=== PATIENT | male | born 1955 | race Two or more races ===

== ENCOUNTER 2017-06-25 20:18 | Inpatient (IN) | payer MEDICARE, OTHER ==
[2017-06-25] MEDS: HumaLOG INSULIN (NovoLOG) PER UNIT SC (21:00)
[2017-06-25] MEDS: IPRATROPIUM 0.5MG/ALBUTEROL 2.5MG INH SOL UD 3ML (DUONEB)(J7620) NEB (21:28)
[2017-06-25 22:35] LABS: BASO % 0.6 % (0.0-1.0); EOS % 0.6 % (0.0-3.0); HEMATOCRIT 38.7 % (42.0-52.0); HEMOGLOBIN 12.5 g/dl (14.0-18.0); IMMATURE GRANULOCYTE % 0.6 % (0-3.0); LYMPH # 0.7 10^3/uL (1.5-4.5); LYMPH % 14.6 % (24.0-44.0); MEAN CORPUSCULAR HGB CONC 32.3 g/dl (32.0-36.5); MONO # 0.6 10^3/uL (0.0-0.8); NEUTROPHILS # 3.4 10^3/uL (1.8-7.7); NEUTROPHILS % 71.6 % (36.0-66.0); PLATELET COUNT, AUTOMATED 195 10^3/uL (150-450); RED BLOOD COUNT 4.16 10^6/uL (4.30-6.10); RED CELL DISTRIBUTION WIDTH 15.9 % (11.5-14.5); WHITE BLOOD COUNT 4.7 10^3/uL (4.0-10.0)
[2017-06-25 22:50] LABS: ALBUMIN 3.4 GM/DL (3.2-5.2); ALBUMIN/GLOBULIN RATIO 0.92 (1.00-1.93); ALT/SGPT 52 U/L (12-78); ANION GAP 9 MEQ/L (8-16); AST/SGOT 119 U/L (7-37); BILIRUBIN,TOTAL 0.2 MG/DL (0.2-1.0); BLOOD UREA NITROGEN 41 MG/DL (7-18); CALCIUM LEVEL 8.4 MG/DL (8.8-10.2); CARBON DIOXIDE LEVEL 26 MEQ/L (21-32); CHLORIDE LEVEL 106 MEQ/L (98-107); CREATININE FOR GFR 1.56 MG/DL (0.70-1.30); GLOMERULAR FILTRATION RATE 48.6 (>49); GLUCOSE, FASTING 180 MG/DL (70-100); MAGNESIUM LEVEL 2.2 MG/DL (1.8-2.4); PHOSPHORUS LEVEL 2.3 MG/DL (2.5-4.9); POTASSIUM SERUM 4.1 MEQ/L (3.5-5.1); SODIUM LEVEL 141 MEQ/L (136-145); TOTAL PROTEIN 7.1 GM/DL (6.4-8.2); TROPONIN I 0.04 NG/ML (< 0.10)
[2017-06-25 22:55] LABS: ALKALINE PHOSPHATASE 69 U/L (45-117); CK-MB VALUE MASS 6.8 NG/ML (0.0-3.6); INFLUENZA A AMPLIFICATION POSITIVE (NEGATIVE); INFLUENZA B AMPLIFICATION NEGATIVE (NEGATIVE)
[2017-06-25 22:56] LABS: NT-PRO BNP 408 PG/ML (<125)
[2017-06-25 23:01] LABS: BILIRUBIN,DIRECT < 0.1 MG/DL (0.0-0.2); CPK CREATINE PHOSPHOKINASE 5625 U/L (39-308); FREE T4 0.82 NG/DL (0.76-1.46); MB/CK RELATIVE INDEX 0.12 (< OR =4)
[2017-06-25] MEDS: NS 1,000 ML IV ×2 (23:13→23:37)
[2017-06-25] MEDS ORDERED: ACETAMINOPHEN TAB 650MG DOSE (2X325MG) PO (23:45)
[2017-06-26] MEDS ORDERED: GLUCAGON FOR INJ 1 MG VIAL (J1610) SC
[2017-06-26] MEDS ORDERED: DEXTROSE 50% 50 ML SYRINGE IV
[2017-06-26] MEDS ORDERED: GLUCOSE 4 GM CHEW TABLET PO
[2017-06-26 01:57] LABS: BEDSIDE GLUCOSE 83 MG/DL (80-115)
[2017-06-26 05:57] LABS: ANION GAP 7 MEQ/L (8-16); BLOOD UREA NITROGEN 35 MG/DL (7-18); CALCIUM LEVEL 8.7 MG/DL (8.8-10.2); CARBON DIOXIDE LEVEL 28 MEQ/L (21-32); CHLORIDE LEVEL 109 MEQ/L (98-107); CPK CREATINE PHOSPHOKINASE 5079 U/L (39-308); CREATININE FOR GFR 1.25 MG/DL (0.70-1.30); GLOMERULAR FILTRATION RATE > 60.0 (>49); GLUCOSE, FASTING 112 MG/DL (70-100); POTASSIUM SERUM 3.8 MEQ/L (3.5-5.1); SODIUM LEVEL 144 MEQ/L (136-145)
[2017-06-26] MEDS ORDERED: LOPERAMIDE 2 MG CAP PO (06:00)
[2017-06-26] MEDS: LEVOTHYROXINE 112MCG TABLET (0.112MG) PO (06:29)
[2017-06-26] MEDS: LEVEMIR (INSULIN DETEMIR) 1 UNITS/0.01ML SC ×2 (09:00→21:00)
[2017-06-26] MEDS: NS 1,000 ML IV (09:47)
[2017-06-26] MEDS: NORCO, ANEXSIA 5/325MG TABLET (HYDROcodone/ACETAMINOPHEN) PO ×2 (09:52→17:55)
[2017-06-26] MEDS: PREGABALIN 50 MG CAP (LYRICA) PO ×3 (10:05→21:33)
[2017-06-26] MEDS: HumaLOG INSULIN (NovoLOG) PER UNIT SC ×4 (10:11→21:00)
[2017-06-26] MEDS: PANTOPRAZOLE 40MG TAB (PROTONIX) PO (10:12)
[2017-06-26] MEDS: DULoxetine 30 MG CAP (CYMBALTA) PO (10:12)
[2017-06-26] MEDS: DOCUSATE SODIUM 100 MG CAP PO ×2 (10:12→21:33)
[2017-06-26] MEDS: VITAMIN D 1,000 INTERNATIONAL UNITS TABLET PO (10:12)
[2017-06-26] MEDS: OSELTAMIVIR PHOSPHATE 75 MG CAP (TAMIFLU) PO ×2 (10:12→21:33)
[2017-06-26] MEDS: MULTIVITAMINS/MINERALS THERAP 1 TAB PO (10:14)
[2017-06-26] MEDS: CLOPIDOGREL 75 MG TAB PO (10:14)
[2017-06-26] MEDS: METOPROLOL TART 50 MG TAB PO ×2 (10:14→21:34)
[2017-06-26] MEDS: CLOTRIMAZOLE 1% TOPICAL CREAM 30GM TOP ×2 (10:15→21:00)
[2017-06-26] MEDS: EUCERIN 120GM CREAM TOP (10:15)
[2017-06-26 12:06] LABS: BEDSIDE GLUCOSE 194 MG/DL (80-115)
[2017-06-26] MEDS: ZIPRASIDONE 20MG CAPSULE (GEODON) PO (12:29)
[2017-06-26 17:26] LABS: BEDSIDE GLUCOSE 110 MG/DL (80-115)
[2017-06-26 21:12] LABS: BEDSIDE GLUCOSE 226 MG/DL (80-115)
[2017-06-26] MEDS: LURASIDONE HCL 40 MG TAB (LATUDA) PO (21:33)
[2017-06-26] MEDS: TAMSULOSIN 0.4 MG CAP PO (21:33)
[2017-06-27] MEDS: LEVOTHYROXINE 112MCG TABLET (0.112MG) PO (05:47)
[2017-06-27 05:52] LABS: INR 1.96
[2017-06-27 07:04] LABS: HEMATOCRIT 36.1 % (42.0-52.0); HEMOGLOBIN 11.8 g/dl (14.0-18.0); MEAN CORPUSCULAR HEMOGLOBIN 29.9 pg (27.0-33.0); MEAN CORPUSCULAR HGB CONC 32.7 g/dl (32.0-36.5); MEAN CORPUSCULAR VOLUME 91.6 fl (80.0-96.0); PLATELET COUNT, AUTOMATED 186 10^3/uL (150-450); RED BLOOD COUNT 3.94 10^6/uL (4.30-6.10); RED CELL DISTRIBUTION WIDTH 16.1 % (11.5-14.5); WHITE BLOOD COUNT 4.6 10^3/uL (4.0-10.0)
[2017-06-27 07:12] LABS: ANION GAP 7 MEQ/L (8-16); BLOOD UREA NITROGEN 23 MG/DL (7-18); CALCIUM LEVEL 8.2 MG/DL (8.8-10.2); CARBON DIOXIDE LEVEL 26 MEQ/L (21-32); CHLORIDE LEVEL 111 MEQ/L (98-107); CREATININE FOR GFR 1.07 MG/DL (0.70-1.30); GLOMERULAR FILTRATION RATE > 60.0 (>49); GLUCOSE, FASTING 80 MG/DL (70-100); POTASSIUM SERUM 4.1 MEQ/L (3.5-5.1); SODIUM LEVEL 144 MEQ/L (136-145)
[2017-06-27] MEDS: HumaLOG INSULIN (NovoLOG) PER UNIT SC ×4 (07:30→21:00)
[2017-06-27] MEDS: VITAMIN D 1,000 INTERNATIONAL UNITS TABLET PO (07:59)
[2017-06-27] MEDS: DOCUSATE SODIUM 100 MG CAP PO ×2 (08:00→20:11)
[2017-06-27] MEDS: PREGABALIN 50 MG CAP (LYRICA) PO ×3 (08:00→20:11)
[2017-06-27] MEDS: DULoxetine 30 MG CAP (CYMBALTA) PO (08:00)
[2017-06-27] MEDS: PANTOPRAZOLE 40MG TAB (PROTONIX) PO (08:00)
[2017-06-27] MEDS: OSELTAMIVIR PHOSPHATE 75 MG CAP (TAMIFLU) PO ×2 (08:00→20:11)
[2017-06-27] MEDS: MULTIVITAMINS/MINERALS THERAP 1 TAB PO (08:00)
[2017-06-27] MEDS: CLOPIDOGREL 75 MG TAB PO (08:00)
[2017-06-27] MEDS: NORCO, ANEXSIA 5/325MG TABLET (HYDROcodone/ACETAMINOPHEN) PO ×2 (08:01→15:35)
[2017-06-27] MEDS: EUCERIN 120GM CREAM TOP (08:01)
[2017-06-27] MEDS: CLOTRIMAZOLE 1% TOPICAL CREAM 30GM TOP ×2 (08:01→20:12)
[2017-06-27] MEDS: METOPROLOL TART 50 MG TAB PO (08:03)
[2017-06-27] MEDS: LEVEMIR (INSULIN DETEMIR) 1 UNITS/0.01ML SC ×2 (08:04→21:00)
[2017-06-27 09:12] LABS: CK-MB VALUE MASS 3.3 NG/ML (0.0-3.6); CPK CREATINE PHOSPHOKINASE 3899 U/L (39-308); MB/CK RELATIVE INDEX 0.08 (< OR =4)
[2017-06-27 09:13] LABS: NT-PRO BNP 871 PG/ML (<125); TROPONIN I 0.03 NG/ML (< 0.10)
[2017-06-27] MEDS: FUROSEMIDE 100 MG/10 ML VIAL (J1940) IV (10:38)
[2017-06-27] MEDS: IPRATROPIUM 0.5MG/ALBUTEROL 2.5MG INH SOL UD 3ML (DUONEB)(J7620) NEB (11:19)
[2017-06-27 11:50] LABS: BEDSIDE GLUCOSE 145 MG/DL (80-115)
[2017-06-27] MEDS: ZIPRASIDONE 20MG CAPSULE (GEODON) PO (13:07)
[2017-06-27 14:51] LABS: TROPONIN I < 0.02 NG/ML (< 0.10)
[2017-06-27 15:02] LABS: CK-MB VALUE MASS 2.7 NG/ML (0.0-3.6); CPK CREATINE PHOSPHOKINASE 3281 U/L (39-308); MB/CK RELATIVE INDEX 0.08 (< OR =4)
[2017-06-27 16:48] LABS: BEDSIDE GLUCOSE 254 MG/DL (80-115)
[2017-06-27] MEDS: WARFARIN SOD 7.5 MG TAB PO (17:12)
[2017-06-27] MEDS: TAMSULOSIN 0.4 MG CAP PO (20:11)
[2017-06-27] MEDS: LURASIDONE HCL 40 MG TAB (LATUDA) PO (20:12)
[2017-06-27 20:54] LABS: BEDSIDE GLUCOSE 171 MG/DL (80-115)
[2017-06-27 21:02] LABS: BLOOD UREA NITROGEN 26 MG/DL (7-18); CALCIUM LEVEL 8.2 MG/DL (8.8-10.2); CHLORIDE LEVEL 106 MEQ/L (98-107); CREATININE FOR GFR 1.14 MG/DL (0.70-1.30); GLUCOSE, FASTING 198 MG/DL (70-100); MAGNESIUM LEVEL 1.9 MG/DL (1.8-2.4); POTASSIUM SERUM 4.5 MEQ/L (3.5-5.1); SODIUM LEVEL 141 MEQ/L (136-145); TROPONIN I 0.02 NG/ML (< 0.10)
[2017-06-27 21:12] LABS: CK-MB VALUE MASS 2.1 NG/ML (0.0-3.6); CPK CREATINE PHOSPHOKINASE 2556 U/L (39-308); MB/CK RELATIVE INDEX 0.08 (< OR =4)
[2017-06-28] MEDS: LEVOTHYROXINE 112MCG TABLET (0.112MG) PO (05:35)
[2017-06-28] MEDS: NORCO, ANEXSIA 5/325MG TABLET (HYDROcodone/ACETAMINOPHEN) PO ×2 (05:35→20:23)
[2017-06-28 06:13] LABS: INR 1.49; PROTHROMBIN TIME 18.4 SECONDS (12.4-14.5)
[2017-06-28 06:17] LABS: ANION GAP 7 MEQ/L (8-16); BLOOD UREA NITROGEN 23 MG/DL (7-18); CALCIUM LEVEL 8.8 MG/DL (8.8-10.2); CARBON DIOXIDE LEVEL 28 MEQ/L (21-32); CHLORIDE LEVEL 106 MEQ/L (98-107); GLOMERULAR FILTRATION RATE > 60.0 (>49); GLUCOSE, FASTING 135 MG/DL (70-100); POTASSIUM SERUM 4.1 MEQ/L (3.5-5.1); SODIUM LEVEL 141 MEQ/L (136-145)
[2017-06-28] MEDS: HumaLOG INSULIN (NovoLOG) PER UNIT SC ×4 (07:28→20:26)
[2017-06-28] MEDS: VITAMIN D 1,000 INTERNATIONAL UNITS TABLET PO (08:45)
[2017-06-28] MEDS: OSELTAMIVIR PHOSPHATE 75 MG CAP (TAMIFLU) PO ×2 (08:45→20:22)
[2017-06-28] MEDS: DOCUSATE SODIUM 100 MG CAP PO ×2 (08:46→20:26)
[2017-06-28] MEDS: FUROSEMIDE 100 MG/10 ML VIAL (J1940) IV (08:46)
[2017-06-28] MEDS: DULoxetine 30 MG CAP (CYMBALTA) PO (08:46)
[2017-06-28] MEDS: PANTOPRAZOLE 40MG TAB (PROTONIX) PO (08:46)
[2017-06-28] MEDS: CLOPIDOGREL 75 MG TAB PO (08:46)
[2017-06-28] MEDS: MULTIVITAMINS/MINERALS THERAP 1 TAB PO (08:46)
[2017-06-28] MEDS: LEVEMIR (INSULIN DETEMIR) 1 UNITS/0.01ML SC ×2 (08:46→20:27)
[2017-06-28] MEDS: PREGABALIN 50 MG CAP (LYRICA) PO ×3 (08:46→20:21)
[2017-06-28] MEDS: EUCERIN 120GM CREAM TOP (08:47)
[2017-06-28] MEDS: CLOTRIMAZOLE 1% TOPICAL CREAM 30GM TOP ×2 (08:47→20:24)
[2017-06-28 10:46] LABS: ESTIMATED AVERAGE GLUCOSE 157 MG/DL (60-110); HEMOGLOBIN A1c 7.1 %
[2017-06-28 12:04] LABS: BEDSIDE GLUCOSE 170 MG/DL (80-115)
[2017-06-28] MEDS: ZIPRASIDONE 20MG CAPSULE (GEODON) PO (12:29)
[2017-06-28] MEDS: ENOXAPARIN 120 MG/0.8 ML SYR (J1650) SC ×2 (13:34→20:23)
[2017-06-28 17:07] LABS: BEDSIDE GLUCOSE 127 MG/DL (80-115)
[2017-06-28] MEDS: WARFARIN SOD 5 MG TAB PO (17:13)
[2017-06-28] MEDS: TAMSULOSIN 0.4 MG CAP PO (20:21)
[2017-06-28 20:27] LABS: BEDSIDE GLUCOSE 158 MG/DL (80-115)
[2017-06-28] MEDS: LURASIDONE HCL 40 MG TAB (LATUDA) PO (21:04)
[2017-06-29] MEDS: LEVOTHYROXINE 112MCG TABLET (0.112MG) PO (05:53)
[2017-06-29] MEDS: NORCO, ANEXSIA 5/325MG TABLET (HYDROcodone/ACETAMINOPHEN) PO ×2 (05:55→16:09)
[2017-06-29 06:44] LABS: ANION GAP 8 MEQ/L (8-16); BLOOD UREA NITROGEN 20 MG/DL (7-18); CALCIUM LEVEL 8.7 MG/DL (8.8-10.2); CARBON DIOXIDE LEVEL 29 MEQ/L (21-32); CHLORIDE LEVEL 104 MEQ/L (98-107); CREATININE FOR GFR 0.99 MG/DL (0.70-1.30); GLOMERULAR FILTRATION RATE > 60.0 (>49); GLUCOSE, FASTING 149 MG/DL (70-100); SODIUM LEVEL 141 MEQ/L (136-145)
[2017-06-29 06:51] LABS: INR 1.38; PROTHROMBIN TIME 17.3 SECONDS (12.4-14.5)
[2017-06-29] MEDS: HumaLOG INSULIN (NovoLOG) PER UNIT SC ×4 (07:40→21:00)
[2017-06-29] MEDS: CLOTRIMAZOLE 1% TOPICAL CREAM 30GM TOP ×2 (07:40→20:35)
[2017-06-29] MEDS: VITAMIN D 1,000 INTERNATIONAL UNITS TABLET PO (07:40)
[2017-06-29] MEDS: CLOPIDOGREL 75 MG TAB PO (07:41)
[2017-06-29] MEDS: DULoxetine 30 MG CAP (CYMBALTA) PO (07:41)
[2017-06-29] MEDS: PANTOPRAZOLE 40MG TAB (PROTONIX) PO (07:41)
[2017-06-29] MEDS: ENOXAPARIN 120 MG/0.8 ML SYR (J1650) SC ×2 (07:41→20:35)
[2017-06-29] MEDS: LEVEMIR (INSULIN DETEMIR) 1 UNITS/0.01ML SC ×2 (07:41→21:00)
[2017-06-29] MEDS: OSELTAMIVIR PHOSPHATE 75 MG CAP (TAMIFLU) PO ×2 (07:41→20:34)
[2017-06-29] MEDS: PREGABALIN 50 MG CAP (LYRICA) PO ×3 (07:41→20:34)
[2017-06-29] MEDS: MULTIVITAMINS/MINERALS THERAP 1 TAB PO (07:41)
[2017-06-29] MEDS: EUCERIN 120GM CREAM TOP (07:42)
[2017-06-29] MEDS: DOCUSATE SODIUM 100 MG CAP PO ×2 (07:42→20:33)
[2017-06-29] MEDS: ZIPRASIDONE 20MG CAPSULE (GEODON) PO (11:54)
[2017-06-29 11:57] LABS: BEDSIDE GLUCOSE 146 MG/DL (80-115)
[2017-06-29] MEDS: WARFARIN SOD 5 MG TAB PO (16:09)
[2017-06-29] MEDS: WARFARIN SOD 2 MG TAB PO (16:09)
[2017-06-29 17:34] LABS: BEDSIDE GLUCOSE 208 MG/DL (80-115)
[2017-06-29 20:25] LABS: BEDSIDE GLUCOSE 163 MG/DL (80-115)
[2017-06-29] MEDS: LURASIDONE HCL 40 MG TAB (LATUDA) PO (20:34)
[2017-06-29] MEDS: TAMSULOSIN 0.4 MG CAP PO (20:34)
[2017-06-30] MEDS: traZODone 100 MG TAB PO ×2 (01:53→21:07)
[2017-06-30 03:32] LABS: ANION GAP 7 MEQ/L (8-16)
[2017-06-30 03:33] LABS: CARBON DIOXIDE LEVEL 28 MEQ/L (21-32)
[2017-06-30] MEDS: LEVOTHYROXINE 112MCG TABLET (0.112MG) PO (05:47)
[2017-06-30 06:23] LABS: INR 1.59; PROTHROMBIN TIME 19.4 SECONDS (12.4-14.5)
[2017-06-30 06:33] LABS: ANION GAP 7 MEQ/L (8-16); BLOOD UREA NITROGEN 19 MG/DL (7-18); CALCIUM LEVEL 8.9 MG/DL (8.8-10.2); CARBON DIOXIDE LEVEL 30 MEQ/L (21-32); CHLORIDE LEVEL 104 MEQ/L (98-107); CREATININE FOR GFR 1.03 MG/DL (0.70-1.30); GLOMERULAR FILTRATION RATE > 60.0 (>49); GLUCOSE, FASTING 138 MG/DL (70-100); POTASSIUM SERUM 4.1 MEQ/L (3.5-5.1); SODIUM LEVEL 141 MEQ/L (136-145)
[2017-06-30] MEDS: HumaLOG INSULIN (NovoLOG) PER UNIT SC ×4 (08:08→20:53)
[2017-06-30] MEDS: DOCUSATE SODIUM 100 MG CAP PO ×2 (09:33→21:07)
[2017-06-30] MEDS: OSELTAMIVIR PHOSPHATE 75 MG CAP (TAMIFLU) PO (09:34)
[2017-06-30] MEDS: DULoxetine 30 MG CAP (CYMBALTA) PO (09:34)
[2017-06-30] MEDS: PANTOPRAZOLE 40MG TAB (PROTONIX) PO (09:34)
[2017-06-30] MEDS: NORCO, ANEXSIA 5/325MG TABLET (HYDROcodone/ACETAMINOPHEN) PO ×3 (09:34→21:08)
[2017-06-30] MEDS: MULTIVITAMINS/MINERALS THERAP 1 TAB PO (09:34)
[2017-06-30] MEDS: VITAMIN D 1,000 INTERNATIONAL UNITS TABLET PO (09:35)
[2017-06-30] MEDS: CLOPIDOGREL 75 MG TAB PO (09:35)
[2017-06-30] MEDS: LEVEMIR (INSULIN DETEMIR) 1 UNITS/0.01ML SC ×2 (09:35→21:06)
[2017-06-30] MEDS: CLOTRIMAZOLE 1% TOPICAL CREAM 30GM TOP ×2 (09:35→21:10)
[2017-06-30] MEDS: PREGABALIN 50 MG CAP (LYRICA) PO ×3 (09:35→21:07)
[2017-06-30] MEDS: EUCERIN 120GM CREAM TOP (09:35)
[2017-06-30] MEDS: ZIPRASIDONE 20MG CAPSULE (GEODON) PO (12:13)
[2017-06-30] MEDS: ENOXAPARIN 120 MG/0.8 ML SYR (J1650) SC ×2 (12:14→21:07)
[2017-06-30 12:15] LABS: BEDSIDE GLUCOSE 209 MG/DL (80-115)
[2017-06-30] MEDS: LISINOPRIL 20 MG TAB PO (15:19)
[2017-06-30 17:37] LABS: BEDSIDE GLUCOSE 146 MG/DL (80-115)
[2017-06-30] MEDS: FUROSEMIDE 80 MG TAB PO (17:58)
[2017-06-30] MEDS: WARFARIN SOD 5 MG TAB PO ×2 (17:59)
[2017-06-30] MEDS: LURASIDONE HCL 40 MG TAB (LATUDA) PO (21:07)
[2017-06-30] MEDS: TAMSULOSIN 0.4 MG CAP PO (21:07)
[2017-06-30 21:30] LABS: BEDSIDE GLUCOSE 248 MG/DL (80-115)
[2017-07-01] MEDS: LEVOTHYROXINE 112MCG TABLET (0.112MG) PO (06:24)
[2017-07-01 06:56] LABS: ANION GAP 7 MEQ/L (8-16); BLOOD UREA NITROGEN 17 MG/DL (7-18); CALCIUM LEVEL 8.5 MG/DL (8.8-10.2); CARBON DIOXIDE LEVEL 30 MEQ/L (21-32); CHLORIDE LEVEL 104 MEQ/L (98-107); CREATININE FOR GFR 1.17 MG/DL (0.70-1.30); GLOMERULAR FILTRATION RATE > 60.0 (>49); GLUCOSE, FASTING 147 MG/DL (70-100); POTASSIUM SERUM 4.2 MEQ/L (3.5-5.1); SODIUM LEVEL 141 MEQ/L (136-145)
[2017-07-01 07:24] LABS: INR 1.83; PROTHROMBIN TIME 21.7 SECONDS (12.4-14.5)
[2017-07-01 07:25] LABS: PARTIAL THROMBOPLASTIN TIME 59.9 SECONDS (26.8-37.9)
[2017-07-01] MEDS: LEVEMIR (INSULIN DETEMIR) 1 UNITS/0.01ML SC (09:00)
[2017-07-01] MEDS: DOCUSATE SODIUM 100 MG CAP PO (09:00)
[2017-07-01] MEDS: ENOXAPARIN 120 MG/0.8 ML SYR (J1650) SC (09:05)
[2017-07-01] MEDS: HumaLOG INSULIN (NovoLOG) PER UNIT SC (09:06)
[2017-07-01] MEDS: FUROSEMIDE 80 MG TAB PO (09:06)
[2017-07-01] MEDS: CLOTRIMAZOLE 1% TOPICAL CREAM 30GM TOP (09:06)
[2017-07-01] MEDS: EUCERIN 120GM CREAM TOP (09:06)
[2017-07-01] MEDS: LISINOPRIL 20 MG TAB PO (09:07)
[2017-07-01] MEDS: MULTIVITAMINS/MINERALS THERAP 1 TAB PO (09:07)
[2017-07-01] MEDS: VITAMIN D 1,000 INTERNATIONAL UNITS TABLET PO (09:07)
[2017-07-01] MEDS: NORCO, ANEXSIA 5/325MG TABLET (HYDROcodone/ACETAMINOPHEN) PO (09:08)
[2017-07-01] MEDS: CLOPIDOGREL 75 MG TAB PO (09:08)
[2017-07-01] MEDS: DULoxetine 30 MG CAP (CYMBALTA) PO (09:08)
[2017-07-01] MEDS: PREGABALIN 50 MG CAP (LYRICA) PO (09:08)
[2017-07-01] MEDS: PANTOPRAZOLE 40MG TAB (PROTONIX) PO (09:08)
[2017-07-01] MEDS: WARFARIN SOD 5 MG TAB PO (11:20)
== END 2017-07-01 11:31 | disposition home or self-care (01) | DRG 683 ==
LOC: M ED INP 23:37 → M MSPAV 06-26 01:28 → M ED 20:18
DX: N17.9 Acute kidney failure, unspecified (principal); M62.82 Rhabdomyolysis; Z68.41 Body mass index [BMI] 40.0-44.9, adult; E66.01 Morbid (severe) obesity due to excess calories; J10.1 Influenza due to other identified influenza virus with other respiratory manifestations; I25.10 Atherosclerotic heart disease of native coronary artery without angina pectoris; I25.2 Old myocardial infarction; I10 Essential (primary) hypertension; E11.9 Type 2 diabetes mellitus without complications; E78.5 Hyperlipidemia, unspecified; E03.9 Hypothyroidism, unspecified; Z95.9 Presence of cardiac and vascular implant and graft, unspecified; Z88.0 Allergy status to penicillin; Z88.2 Allergy status to sulfonamides; Z88.6 Allergy status to analgesic agent; Z88.8 Allergy status to other drugs, medicaments and biological substances; Z87.891 Personal history of nicotine dependence; Z86.718 Personal history of other venous thrombosis and embolism; Z86.711 Personal history of pulmonary embolism; Z79.899 Other long term (current) drug therapy

== ENCOUNTER 2021-07-03 13:16 | Inpatient (IN) | payer MEDICARE, OTHER ==
[~2021-07-03] VITALS: Ht 170.2 cm; Wt 115.0 kg
[~2021-07-03 13:16] MED LIST: ANTI1CRE6 TOP; ASPI81CH49 PO; ATOR80TA59 PO; BACITAB PO; CLOP75TA2 PO; COUM1TAB17 PO; CYCL-707 PO; DOCU100C16 PO; DULO30CA9 PO; EUCECRE3 TOP; FISH100049 PO; FISH500C PO; FURO40TA2 PO; GEOD40CA13 PO; HYDR-3713 PO; INSUH10VL SC; INSUHUMDS SC; INSULANT SC; K-TA1TAB PO; LASI80TA3 PO; LATU80TA2 PO; LEVO112T25 PO; LEVO200T31 PO; LISI20TA33 PO; LISI20TA35 PO; LOPE2TAB3 PO; LOVE0.01 SC; METO1TAB32 PO; METO1TAB63 PO; METO50TA7 PO; NITR0.4S14 SL; NOVOINJ3 SC; PANT40TA29 PO; PREG50CA PO; TAMS0.4C2 PO; TRAZ-257 PO; TYLE500T78 PO; VENL75CA22 PO; VICT18IN SC; VITA100066 PO; VITA100067 PO; VITMTA PO; WARF-23 PO
[2021-07-03 14:46] LABS: BASO % 0.4 % (0.0-1.0); EOS # 0.3 10^3/uL (0.0-0.5); EOS % 3.5 % (0.0-3.0); HEMATOCRIT 42.1 % (42.0-52.0); HEMOGLOBIN 13.9 g/dl (13.5-17.5); LYMPH # 1.4 10^3/uL (1.5-5.0); LYMPH % 14.7 % (24.0-44.0); MEAN CORPUSCULAR VOLUME 87.7 fl (80.0-96.0); MONO # 0.6 10^3/uL (0.0-0.8); MONO % 6.2 % (2.0-8.0); NEUTROPHILS # 6.9 10^3/uL (1.5-8.5); PLATELET COUNT, AUTOMATED 318 10^3/uL (150-450); WHITE BLOOD COUNT 9.2 10^3/uL (4.0-10.0)
[2021-07-03 15:30] LABS: ALBUMIN 3.1 GM/DL (3.2-5.2); BILIRUBIN,DIRECT 0.5 MG/DL (0.0-0.2); BILIRUBIN,TOTAL 1.5 MG/DL (0.2-1.0); CALCIUM LEVEL 8.3 MG/DL (8.8-10.2); CREATININE FOR GFR 1.49 MG/DL (0.70-1.30); FREE T4 0.99 NG/DL (0.76-1.46); GLOMERULAR FILTRATION RATE 50.5 (>49); POTASSIUM SERUM 2.8 MEQ/L (3.5-5.1); THYROID STIMULATING HORMONE 6.37 uIU/ML (0.358-3.740); TOTAL PROTEIN 6.5 GM/DL (6.4-8.2)
[2021-07-03] MEDS ORDERED: POTASSIUM CHLORIDE 10MEQ SR TABLET PO ONE (15:30)
[2021-07-03] MEDS ORDERED: KCL 10MEQ/100ML SWI (KRUN) 10 MEQ in IV 1 EA IV ONE (15:30)
[2021-07-03] MEDS ORDERED: PERCOCET 5MG/325MG TAB PO ONE (15:45)
[2021-07-03] MEDS ORDERED: NS 1,000 ML IV SCH (16:20)
[2021-07-03] MEDS ORDERED: GLUCOSE 4GM CHEW TABLET PO PRN (16:25)
[2021-07-03] MEDS ORDERED: GLUCAGON INJ 1MG VIAL SC PRN (16:25)
[2021-07-03] MEDS ORDERED: DEXTROSE 50% 50 ML SYRINGE IV PRN (16:25)
[2021-07-03 16:33] LABS: MAGNESIUM LEVEL 1.6 MG/DL (1.8-2.4)
[2021-07-03] MEDS ORDERED: LEVO175T2 PO (16:38)
[2021-07-03] MEDS ORDERED: CYMB60CA4 PO (16:38)
[2021-07-03] MEDS ORDERED: FURO40TA2 PO (16:38)
[2021-07-03] MEDS: HumaLOG INSULIN (NovoLOG) PER UNIT SC SCH ×2 (17:30→21:00)
[2021-07-03] MEDS ORDERED: TIZA4CAP PO (18:09)
[2021-07-03] MEDS ORDERED: FLOM0.4C39 PO (18:09)
[2021-07-03] MEDS ORDERED: FLUT15.820 NARES (18:13)
[2021-07-03] MEDS ORDERED: VITA250T4 PO (18:13)
[2021-07-03] MEDS ORDERED: QUET50TA4 PO (18:13)
[2021-07-03] MEDS ORDERED: EZET10TA21 PO (18:13)
[2021-07-03] MEDS ORDERED: MELA3TAB30 PO (18:14)
[2021-07-03] MEDS ORDERED: EUCE1CRE2 TOP (18:58)
[2021-07-03] MEDS ORDERED: XARE20TA PO (19:02)
[2021-07-03] MEDS ORDERED: HOME MED LIST COMPLETE! XX SCH (19:05)
[2021-07-03] MEDS ORDERED: LEVEMIR (INSULIN DETEMIR) 1 UNITS/0.01ML SC SCH (21:00)
[2021-07-03] MEDS: LEVEMIR (INSULIN DETEMIR) 1 UNITS/0.01ML SC SCH (21:00)
[2021-07-04] MEDS ORDERED: **hydrALAZINE** 50 MG TAB PO ONE (04:25)
[2021-07-04] MEDS ORDERED: cloNIDine 0.2 MG TAB PO ONE (07:15)
[2021-07-04] MEDS: HumaLOG INSULIN (NovoLOG) PER UNIT SC SCH ×4 (07:30→20:48)
[2021-07-04] MEDS ORDERED: NITROGLYCERIN 0.4 MG SUBL TABLET SL PRN (08:05)
[2021-07-04 08:26] LABS: HEMATOCRIT 40.7 % (42.0-52.0); HEMOGLOBIN 13.3 g/dl (13.5-17.5); MEAN CORPUSCULAR HEMOGLOBIN 28.7 pg (27.0-33.0); MEAN CORPUSCULAR HGB CONC 32.7 g/dl (32.0-36.5); MEAN CORPUSCULAR VOLUME 87.9 fl (80.0-96.0); PLATELET COUNT, AUTOMATED 287 10^3/uL (150-450); RED BLOOD COUNT 4.63 10^6/uL (4.30-6.10); WHITE BLOOD COUNT 7.5 10^3/uL (4.0-10.0)
[2021-07-04] MEDS ORDERED: POTASSIUM CHLORIDE 10MEQ SR TABLET PO ONE (08:30)
[2021-07-04 08:39] LABS: PROTHROMBIN TIME 13.6 SECONDS (12.7-14.5)
[2021-07-04 08:54] LABS: BLOOD UREA NITROGEN 18 MG/DL (7-18); CALCIUM LEVEL 8.7 MG/DL (8.8-10.2); CARBON DIOXIDE LEVEL 31 MEQ/L (21-32); CHLORIDE LEVEL 101 MEQ/L (98-107); CREATININE FOR GFR 1.21 MG/DL (0.70-1.30); GLOMERULAR FILTRATION RATE > 60.0 (>49); GLUCOSE, FASTING 147 MG/DL (70-100); MAGNESIUM LEVEL 1.7 MG/DL (1.8-2.4); SODIUM LEVEL 142 MEQ/L (136-145)
[2021-07-04] MEDS: ASCORBIC ACID 250 MG TAB PO SCH (09:00)
[2021-07-04] MEDS: FLUTICASONE PROP 0.05% NASAL SPRAY 16 GM (FLONASE) NARES SCH (09:00)
[2021-07-04] MEDS: LEVEMIR (INSULIN DETEMIR) 1 UNITS/0.01ML SC SCH ×2 (09:00→20:55)
[2021-07-04] MEDS: LURASIDONE HCL 40MG TAB (LATUDA) PO SCH (09:24)
[2021-07-04] MEDS: tiZANidine 4 MG TAB PO SCH ×3 (09:24→20:56)
[2021-07-04] MEDS: PREGABALIN 50 MG CAP (LYRICA) PO SCH ×3 (09:24→20:55)
[2021-07-04] MEDS: PANTOPRAZOLE 40MG TAB (PROTONIX) PO SCH (09:24)
[2021-07-04] MEDS: CLOPIDOGREL 75 MG TAB PO SCH (09:25)
[2021-07-04] MEDS: MULTIVITAMINS/MINERALS THERAP 1 TAB PO SCH (09:25)
[2021-07-04] MEDS: DULoxetine 30MG CAPSULE (CYMBALTA) PO SCH (09:25)
[2021-07-04] MEDS: EZETIMIBE 10MG TABLET (ZETIA) PO SCH (09:26)
[2021-07-04] MEDS: LEVOTHYROXINE 75MCG TABLET (0.075MG) PO SCH (09:51)
[2021-07-04] MEDS: LEVOTHYROXINE 100MCG TABLET (0.1MG) PO SCH (09:51)
[2021-07-04 14:00] VITALS: BP 138/70
[2021-07-04 17:00] VITALS: BP 102/57
[2021-07-04] MEDS: RIVAROXABAN 20 MG TAB (XARELTO) PO SCH (18:37)
[2021-07-04] MEDS: QUEtiapine FUMARATE 50MG TAB PO SCH (20:55)
[2021-07-04] MEDS: ATORVASTATIN 20 MG TAB PO SCH (20:55)
[2021-07-04] MEDS: TAMSULOSIN 0.4 MG CAP PO SCH (20:55)
[2021-07-04 22:00] VITALS: BP 109/54
[2021-07-05] MEDS: LEVOTHYROXINE 75MCG TABLET (0.075MG) PO SCH (05:28)
[2021-07-05] MEDS: LEVOTHYROXINE 100MCG TABLET (0.1MG) PO SCH (05:28)
[2021-07-05 06:00] VITALS: BP 128/54
[2021-07-05 07:12] LABS: HEMATOCRIT 36.9 % (42.0-52.0); HEMOGLOBIN 11.7 g/dl (13.5-17.5); MEAN CORPUSCULAR HEMOGLOBIN 28.7 pg (27.0-33.0); MEAN CORPUSCULAR HGB CONC 31.7 g/dl (32.0-36.5); MEAN CORPUSCULAR VOLUME 90.4 fl (80.0-96.0); PLATELET COUNT, AUTOMATED 260 10^3/uL (150-450); RED BLOOD COUNT 4.08 10^6/uL (4.30-6.10); WHITE BLOOD COUNT 7.2 10^3/uL (4.0-10.0)
[2021-07-05 07:23] LABS: INR 1.42; PROTHROMBIN TIME 17.8 SECONDS (12.7-14.5)
[2021-07-05] MEDS: HumaLOG INSULIN (NovoLOG) PER UNIT SC SCH ×4 (07:30→20:19)
[2021-07-05 07:44] LABS: CALCIUM LEVEL 9.1 MG/DL (8.8-10.2); CREATININE FOR GFR 1.3 MG/DL (0.70-1.30); GLOMERULAR FILTRATION RATE 59.2 (>49); MAGNESIUM LEVEL 1.9 MG/DL (1.8-2.4); POTASSIUM SERUM 3.2 MEQ/L (3.5-5.1)
[2021-07-05] MEDS: FLUTICASONE PROP 0.05% NASAL SPRAY 16 GM (FLONASE) NARES SCH (09:00)
[2021-07-05] MEDS: PANTOPRAZOLE 40MG TAB (PROTONIX) PO SCH (09:02)
[2021-07-05] MEDS: PREGABALIN 50 MG CAP (LYRICA) PO SCH ×3 (09:02→20:08)
[2021-07-05] MEDS: EZETIMIBE 10MG TABLET (ZETIA) PO SCH (09:02)
[2021-07-05] MEDS: DULoxetine 30MG CAPSULE (CYMBALTA) PO SCH (09:02)
[2021-07-05] MEDS: tiZANidine 4 MG TAB PO SCH ×3 (09:03→20:05)
[2021-07-05] MEDS: MULTIVITAMINS/MINERALS THERAP 1 TAB PO SCH (09:03)
[2021-07-05] MEDS: CLOPIDOGREL 75 MG TAB PO SCH (09:03)
[2021-07-05] MEDS: ASCORBIC ACID 250 MG TAB PO SCH (09:03)
[2021-07-05] MEDS: POTASSIUM CHLORIDE 10MEQ SR TABLET PO SCH (11:05)
[2021-07-05] MEDS: LURASIDONE HCL 40MG TAB (LATUDA) PO SCH (11:05)
[2021-07-05] MEDS: LEVEMIR (INSULIN DETEMIR) 1 UNITS/0.01ML SC SCH ×2 (11:09→20:05)
[2021-07-05] MEDS ORDERED: CALCIUM CARBONATE 500 MG CHEW U/D PO PRN (11:40)
[2021-07-05] MEDS ORDERED: POTASSIUM CHLORIDE 10MEQ SR TABLET PO ONE (12:00)
[2021-07-05] MEDS ORDERED: NS 1,000 ML IV SCH (13:00)
[2021-07-05 14:00] VITALS: BP 129/61
[2021-07-05] MEDS: RIVAROXABAN 20 MG TAB (XARELTO) PO SCH (18:08)
[2021-07-05 20:00] VITALS: BP_SYST 151; BP_SYST 92; BP_DIAS 59; BP_DIAS 70; BP_DIAS 78
[2021-07-05] MEDS: TAMSULOSIN 0.4 MG CAP PO SCH (20:05)
[2021-07-05] MEDS: ATORVASTATIN 20 MG TAB PO SCH (20:05)
[2021-07-05] MEDS: QUEtiapine FUMARATE 50MG TAB PO SCH (20:05)
[2021-07-05 22:00] VITALS: BP 141/70
[2021-07-06] MEDS: LEVOTHYROXINE 75MCG TABLET (0.075MG) PO SCH (05:39)
[2021-07-06] MEDS: LEVOTHYROXINE 100MCG TABLET (0.1MG) PO SCH (05:39)
[2021-07-06 06:00] VITALS: BP 151/66
[2021-07-06 06:45] LABS: HEMATOCRIT 35.6 % (42.0-52.0); HEMOGLOBIN 11.6 g/dl (13.5-17.5); MEAN CORPUSCULAR HEMOGLOBIN 29.3 pg (27.0-33.0); MEAN CORPUSCULAR HGB CONC 32.6 g/dl (32.0-36.5); MEAN CORPUSCULAR VOLUME 89.9 fl (80.0-96.0); PLATELET COUNT, AUTOMATED 268 10^3/uL (150-450); RED BLOOD COUNT 3.96 10^6/uL (4.30-6.10); WHITE BLOOD COUNT 6.9 10^3/uL (4.0-10.0)
[2021-07-06 06:50] LABS: INR 1.76; PROTHROMBIN TIME 20.9 SECONDS (12.7-14.5)
[2021-07-06 07:08] LABS: BLOOD UREA NITROGEN 19 MG/DL (7-18); CALCIUM LEVEL 8.9 MG/DL (8.8-10.2); CARBON DIOXIDE LEVEL 32 MEQ/L (21-32); CHLORIDE LEVEL 106 MEQ/L (98-107); CREATININE FOR GFR 1.28 MG/DL (0.70-1.30); GLOMERULAR FILTRATION RATE > 60.0 (>49); GLUCOSE, FASTING 118 MG/DL (70-100); MAGNESIUM LEVEL 1.9 MG/DL (1.8-2.4); POTASSIUM SERUM 4.1 MEQ/L (3.5-5.1); SODIUM LEVEL 142 MEQ/L (136-145)
[2021-07-06] MEDS: PREGABALIN 50 MG CAP (LYRICA) PO SCH ×3 (08:08→21:03)
[2021-07-06] MEDS: EZETIMIBE 10MG TABLET (ZETIA) PO SCH (08:08)
[2021-07-06] MEDS: DULoxetine 30MG CAPSULE (CYMBALTA) PO SCH (08:08)
[2021-07-06] MEDS: MULTIVITAMINS/MINERALS THERAP 1 TAB PO SCH (08:08)
[2021-07-06] MEDS: ASCORBIC ACID 250 MG TAB PO SCH (08:09)
[2021-07-06] MEDS: POTASSIUM CHLORIDE 10MEQ SR TABLET PO SCH (08:09)
[2021-07-06] MEDS: tiZANidine 4 MG TAB PO SCH ×3 (08:09→21:03)
[2021-07-06] MEDS: PANTOPRAZOLE 40MG TAB (PROTONIX) PO SCH (08:09)
[2021-07-06] MEDS: CLOPIDOGREL 75 MG TAB PO SCH (08:09)
[2021-07-06] MEDS: HumaLOG INSULIN (NovoLOG) PER UNIT SC SCH ×4 (08:13→19:46)
[2021-07-06] MEDS: LEVEMIR (INSULIN DETEMIR) 1 UNITS/0.01ML SC SCH ×2 (08:14→21:03)
[2021-07-06] MEDS: FLUTICASONE PROP 0.05% NASAL SPRAY 16 GM (FLONASE) NARES SCH (08:14)
[2021-07-06] MEDS: LURASIDONE HCL 40MG TAB (LATUDA) PO SCH (08:51)
[2021-07-06 11:57] VITALS: BP_SYST 159; BP_SYST 160; BP_SYST 162; BP_DIAS 62; BP_DIAS 64; BP_DIAS 71
[2021-07-06 14:00] VITALS: BP 162/83
[2021-07-06] MEDS: RIVAROXABAN 20 MG TAB (XARELTO) PO SCH (17:42)
[2021-07-06] MEDS: TAMSULOSIN 0.4 MG CAP PO SCH (21:02)
[2021-07-06] MEDS: QUEtiapine FUMARATE 50MG TAB PO SCH (21:03)
[2021-07-06] MEDS: ATORVASTATIN 20 MG TAB PO SCH (21:03)
[2021-07-06 22:00] VITALS: BP 157/71
[2021-07-07] MEDS: LEVOTHYROXINE 75MCG TABLET (0.075MG) PO SCH (05:17)
[2021-07-07] MEDS: LEVOTHYROXINE 100MCG TABLET (0.1MG) PO SCH (05:17)
[2021-07-07 06:00] VITALS: BP 156/71
[2021-07-07 06:27] LABS: HEMATOCRIT 36.2 % (42.0-52.0); HEMOGLOBIN 11.8 g/dl (13.5-17.5); MEAN CORPUSCULAR HEMOGLOBIN 29.3 pg (27.0-33.0); MEAN CORPUSCULAR HGB CONC 32.6 g/dl (32.0-36.5); MEAN CORPUSCULAR VOLUME 89.8 fl (80.0-96.0); PLATELET COUNT, AUTOMATED 266 10^3/uL (150-450); RED BLOOD COUNT 4.03 10^6/uL (4.30-6.10); WHITE BLOOD COUNT 6.9 10^3/uL (4.0-10.0)
[2021-07-07 06:32] LABS: INR 1.96; PROTHROMBIN TIME 22.7 SECONDS (12.7-14.5)
[2021-07-07 06:43] LABS: BLOOD UREA NITROGEN 14 MG/DL (7-18); CALCIUM LEVEL 8.7 MG/DL (8.8-10.2); CARBON DIOXIDE LEVEL 28 MEQ/L (21-32); CHLORIDE LEVEL 107 MEQ/L (98-107); CREATININE FOR GFR 1.18 MG/DL (0.70-1.30); GLOMERULAR FILTRATION RATE > 60.0 (>49); GLUCOSE, FASTING 138 MG/DL (70-100); MAGNESIUM LEVEL 1.8 MG/DL (1.8-2.4); SODIUM LEVEL 142 MEQ/L (136-145)
[2021-07-07] MEDS: HumaLOG INSULIN (NovoLOG) PER UNIT SC SCH ×4 (07:30→20:44)
[2021-07-07] MEDS: POTASSIUM CHLORIDE 10MEQ SR TABLET PO SCH (09:02)
[2021-07-07] MEDS: tiZANidine 4 MG TAB PO SCH ×3 (09:02→20:43)
[2021-07-07] MEDS: EZETIMIBE 10MG TABLET (ZETIA) PO SCH (09:02)
[2021-07-07] MEDS: DULoxetine 30MG CAPSULE (CYMBALTA) PO SCH (09:03)
[2021-07-07] MEDS: LEVEMIR (INSULIN DETEMIR) 1 UNITS/0.01ML SC SCH ×2 (09:03→20:43)
[2021-07-07] MEDS: PANTOPRAZOLE 40MG TAB (PROTONIX) PO SCH (09:03)
[2021-07-07] MEDS: CLOPIDOGREL 75 MG TAB PO SCH (09:03)
[2021-07-07] MEDS: ASCORBIC ACID 250 MG TAB PO SCH (09:03)
[2021-07-07] MEDS: MULTIVITAMINS/MINERALS THERAP 1 TAB PO SCH (09:03)
[2021-07-07] MEDS: PREGABALIN 50 MG CAP (LYRICA) PO SCH ×3 (09:03→20:43)
[2021-07-07] MEDS: FLUTICASONE PROP 0.05% NASAL SPRAY 16 GM (FLONASE) NARES SCH (10:19)
[2021-07-07] MEDS: LURASIDONE HCL 40MG TAB (LATUDA) PO SCH (10:20)
[2021-07-07] MEDS ORDERED: MECLIZINE 25 MG TABLET PO PRN (13:40)
[2021-07-07 14:00] VITALS: BP 157/71
[2021-07-07] MEDS: RIVAROXABAN 20 MG TAB (XARELTO) PO SCH (17:43)
[2021-07-07] MEDS: TAMSULOSIN 0.4 MG CAP PO SCH (20:43)
[2021-07-07] MEDS: QUEtiapine FUMARATE 50MG TAB PO SCH (20:43)
[2021-07-07] MEDS: ATORVASTATIN 20 MG TAB PO SCH (20:44)
[2021-07-07 21:00] VITALS: BP 182/86
[2021-07-08] MEDS: LEVOTHYROXINE 100MCG TABLET (0.1MG) PO SCH (05:44)
[2021-07-08] MEDS: LEVOTHYROXINE 75MCG TABLET (0.075MG) PO SCH (05:44)
[2021-07-08 06:00] VITALS: BP 196/88
[2021-07-08] MEDS ORDERED: **hydrALAZINE** 50 MG TAB PO ONE (06:00)
[2021-07-08 06:04] LABS: HEMATOCRIT 38.1 % (42.0-52.0); HEMOGLOBIN 12.3 g/dl (13.5-17.5); MEAN CORPUSCULAR HEMOGLOBIN 28.4 pg (27.0-33.0); MEAN CORPUSCULAR HGB CONC 32.3 g/dl (32.0-36.5); PLATELET COUNT, AUTOMATED 274 10^3/uL (150-450); RED BLOOD COUNT 4.33 10^6/uL (4.30-6.10); WHITE BLOOD COUNT 6.1 10^3/uL (4.0-10.0)
[2021-07-08 06:16] LABS: INR 1.67; PROTHROMBIN TIME 20.1 SECONDS (12.7-14.5)
[2021-07-08 06:30] LABS: BLOOD UREA NITROGEN 14 MG/DL (7-18); CARBON DIOXIDE LEVEL 26 MEQ/L (21-32); CHLORIDE LEVEL 108 MEQ/L (98-107); CREATININE FOR GFR 1.09 MG/DL (0.70-1.30); GLOMERULAR FILTRATION RATE > 60.0 (>49); GLUCOSE, FASTING 150 MG/DL (70-100); MAGNESIUM LEVEL 1.9 MG/DL (1.8-2.4); POTASSIUM SERUM 4.1 MEQ/L (3.5-5.1); SODIUM LEVEL 142 MEQ/L (136-145)
[2021-07-08 08:08] VITALS: BP 189/85
[2021-07-08] MEDS: LEVEMIR (INSULIN DETEMIR) 1 UNITS/0.01ML SC SCH ×2 (08:58→21:32)
[2021-07-08] MEDS: FLUTICASONE PROP 0.05% NASAL SPRAY 16 GM (FLONASE) NARES SCH (08:58)
[2021-07-08] MEDS: LURASIDONE HCL 40MG TAB (LATUDA) PO SCH (08:59)
[2021-07-08] MEDS: MULTIVITAMINS/MINERALS THERAP 1 TAB PO SCH (09:00)
[2021-07-08] MEDS: POTASSIUM CHLORIDE 10MEQ SR TABLET PO SCH (09:00)
[2021-07-08] MEDS: DULoxetine 30MG CAPSULE (CYMBALTA) PO SCH (09:01)
[2021-07-08] MEDS: tiZANidine 4 MG TAB PO SCH ×3 (09:01→21:31)
[2021-07-08] MEDS: EZETIMIBE 10MG TABLET (ZETIA) PO SCH (09:01)
[2021-07-08] MEDS: PANTOPRAZOLE 40MG TAB (PROTONIX) PO SCH (09:01)
[2021-07-08] MEDS: CLOPIDOGREL 75 MG TAB PO SCH (09:02)
[2021-07-08] MEDS: ASCORBIC ACID 250 MG TAB PO SCH (09:02)
[2021-07-08] MEDS: PREGABALIN 50 MG CAP (LYRICA) PO SCH ×3 (09:04→21:31)
[2021-07-08] MEDS: HumaLOG INSULIN (NovoLOG) PER UNIT SC SCH ×4 (09:16→21:00)
[2021-07-08 10:00] VITALS: BP 160/80
[2021-07-08 12:00] VITALS: BP 180/80
[2021-07-08 14:00] VITALS: BP 180/72
[2021-07-08] MEDS: RIVAROXABAN 20 MG TAB (XARELTO) PO SCH (18:50)
[2021-07-08 21:00] VITALS: BP 154/63
[2021-07-08] MEDS: TAMSULOSIN 0.4 MG CAP PO SCH (21:31)
[2021-07-08] MEDS: ATORVASTATIN 20 MG TAB PO SCH (21:31)
[2021-07-08] MEDS: QUEtiapine FUMARATE 50MG TAB PO SCH (21:31)
[2021-07-08] MEDS: MECLIZINE 25 MG TABLET PO PRN (21:34)
[2021-07-09] MEDS: LEVOTHYROXINE 100MCG TABLET (0.1MG) PO SCH (05:34)
[2021-07-09] MEDS: LEVOTHYROXINE 75MCG TABLET (0.075MG) PO SCH (05:34)
[2021-07-09 06:00] VITALS: BP 159/60
[2021-07-09 06:37] LABS: INR 1.42; PROTHROMBIN TIME 17.8 SECONDS (12.7-14.5)
[2021-07-09] MEDS: MULTIVITAMINS/MINERALS THERAP 1 TAB PO SCH (08:52)
[2021-07-09] MEDS: PREGABALIN 50 MG CAP (LYRICA) PO SCH ×3 (08:52→21:28)
[2021-07-09] MEDS: POTASSIUM CHLORIDE 10MEQ SR TABLET PO SCH (08:52)
[2021-07-09] MEDS: EZETIMIBE 10MG TABLET (ZETIA) PO SCH (08:52)
[2021-07-09] MEDS: CLOPIDOGREL 75 MG TAB PO SCH (08:52)
[2021-07-09] MEDS: PANTOPRAZOLE 40MG TAB (PROTONIX) PO SCH (08:52)
[2021-07-09] MEDS: DULoxetine 30MG CAPSULE (CYMBALTA) PO SCH (08:52)
[2021-07-09] MEDS: tiZANidine 4 MG TAB PO SCH ×3 (08:52→21:26)
[2021-07-09] MEDS: HumaLOG INSULIN (NovoLOG) PER UNIT SC SCH ×4 (08:53→19:57)
[2021-07-09] MEDS: LEVEMIR (INSULIN DETEMIR) 1 UNITS/0.01ML SC SCH ×2 (08:53→21:26)
[2021-07-09] MEDS: ASCORBIC ACID 250 MG TAB PO SCH (08:54)
[2021-07-09] MEDS: FLUTICASONE PROP 0.05% NASAL SPRAY 16 GM (FLONASE) NARES SCH (09:00)
[2021-07-09] MEDS: LURASIDONE HCL 40MG TAB (LATUDA) PO SCH (09:07)
[2021-07-09 14:00] VITALS: BP 160/82
[2021-07-09] MEDS: MECLIZINE 25 MG TABLET PO PRN (15:01)
[2021-07-09] MEDS: RIVAROXABAN 20 MG TAB (XARELTO) PO SCH (17:48)
[2021-07-09] MEDS: TAMSULOSIN 0.4 MG CAP PO SCH (21:26)
[2021-07-09] MEDS: QUEtiapine FUMARATE 50MG TAB PO SCH (21:26)
[2021-07-09] MEDS: ATORVASTATIN 20 MG TAB PO SCH (21:26)
[2021-07-09 22:00] VITALS: BP 162/64
[2021-07-10] MEDS: LEVOTHYROXINE 100MCG TABLET (0.1MG) PO SCH (05:16)
[2021-07-10] MEDS: LEVOTHYROXINE 75MCG TABLET (0.075MG) PO SCH (05:16)
[2021-07-10 06:00] VITALS: BP 158/62
[2021-07-10 07:24] LABS: INR 1.6; PROTHROMBIN TIME 19.5 SECONDS (12.7-14.5)
[2021-07-10] MEDS: HumaLOG INSULIN (NovoLOG) PER UNIT SC SCH ×5 (07:30→20:24)
[2021-07-10] MEDS: LEVEMIR (INSULIN DETEMIR) 1 UNITS/0.01ML SC SCH ×2 (08:22→20:32)
[2021-07-10] MEDS: DULoxetine 30MG CAPSULE (CYMBALTA) PO SCH (08:22)
[2021-07-10] MEDS: PREGABALIN 50 MG CAP (LYRICA) PO SCH ×3 (08:22→20:31)
[2021-07-10] MEDS: POTASSIUM CHLORIDE 10MEQ SR TABLET PO SCH (08:23)
[2021-07-10] MEDS: ASCORBIC ACID 250 MG TAB PO SCH (08:23)
[2021-07-10] MEDS: PANTOPRAZOLE 40MG TAB (PROTONIX) PO SCH (08:23)
[2021-07-10] MEDS: CLOPIDOGREL 75 MG TAB PO SCH (08:23)
[2021-07-10] MEDS: LURASIDONE HCL 40MG TAB (LATUDA) PO SCH (08:23)
[2021-07-10] MEDS: tiZANidine 4 MG TAB PO SCH ×3 (08:23→20:32)
[2021-07-10] MEDS: EZETIMIBE 10MG TABLET (ZETIA) PO SCH (08:23)
[2021-07-10] MEDS: MULTIVITAMINS/MINERALS THERAP 1 TAB PO SCH (08:23)
[2021-07-10] MEDS: FLUTICASONE PROP 0.05% NASAL SPRAY 16 GM (FLONASE) NARES SCH (08:24)
[2021-07-10] MEDS: MECLIZINE 25 MG TABLET PO PRN (13:27)
[2021-07-10 14:00] VITALS: BP 146/86
[2021-07-10] MEDS: RIVAROXABAN 20 MG TAB (XARELTO) PO SCH (18:24)
[2021-07-10] MEDS: QUEtiapine FUMARATE 50MG TAB PO SCH (20:31)
[2021-07-10] MEDS: ATORVASTATIN 20 MG TAB PO SCH (20:32)
[2021-07-10] MEDS: TAMSULOSIN 0.4 MG CAP PO SCH (20:32)
[2021-07-10 22:00] VITALS: BP 141/65
[2021-07-11] MEDS: LEVOTHYROXINE 100MCG TABLET (0.1MG) PO SCH (05:29)
[2021-07-11] MEDS: LEVOTHYROXINE 75MCG TABLET (0.075MG) PO SCH (05:29)
[2021-07-11 06:00] VITALS: BP 143/64
[2021-07-11 06:04] LABS: HEMATOCRIT 37.7 % (42.0-52.0); HEMOGLOBIN 12.5 g/dl (13.5-17.5); MEAN CORPUSCULAR HEMOGLOBIN 29.2 pg (27.0-33.0); MEAN CORPUSCULAR HGB CONC 33.2 g/dl (32.0-36.5); MEAN CORPUSCULAR VOLUME 88.1 fl (80.0-96.0); PLATELET COUNT, AUTOMATED 296 10^3/uL (150-450); RED BLOOD COUNT 4.28 10^6/uL (4.30-6.10); WHITE BLOOD COUNT 6.7 10^3/uL (4.0-10.0)
[2021-07-11 06:34] LABS: BLOOD UREA NITROGEN 18 MG/DL (7-18); CALCIUM LEVEL 9.2 MG/DL (8.8-10.2); CARBON DIOXIDE LEVEL 27 MEQ/L (21-32); CHLORIDE LEVEL 107 MEQ/L (98-107); CREATININE FOR GFR 1.24 MG/DL (0.70-1.30); GLOMERULAR FILTRATION RATE > 60.0 (>49); GLUCOSE, FASTING 155 MG/DL (70-100); POTASSIUM SERUM 4.7 MEQ/L (3.5-5.1); SODIUM LEVEL 139 MEQ/L (136-145)
[2021-07-11] MEDS: HumaLOG INSULIN (NovoLOG) PER UNIT SC SCH ×4 (07:48→21:00)
[2021-07-11] MEDS: EZETIMIBE 10MG TABLET (ZETIA) PO SCH (07:48)
[2021-07-11] MEDS: LEVEMIR (INSULIN DETEMIR) 1 UNITS/0.01ML SC SCH ×2 (07:48→21:57)
[2021-07-11] MEDS: DULoxetine 30MG CAPSULE (CYMBALTA) PO SCH (07:48)
[2021-07-11] MEDS: POTASSIUM CHLORIDE 10MEQ SR TABLET PO SCH (07:49)
[2021-07-11] MEDS: PREGABALIN 50 MG CAP (LYRICA) PO SCH ×3 (07:50→21:56)
[2021-07-11] MEDS: LURASIDONE HCL 40MG TAB (LATUDA) PO SCH (07:50)
[2021-07-11] MEDS: CLOPIDOGREL 75 MG TAB PO SCH (07:50)
[2021-07-11] MEDS: MULTIVITAMINS/MINERALS THERAP 1 TAB PO SCH (07:50)
[2021-07-11] MEDS: PANTOPRAZOLE 40MG TAB (PROTONIX) PO SCH (07:51)
[2021-07-11] MEDS: tiZANidine 4 MG TAB PO SCH ×3 (07:51→21:57)
[2021-07-11] MEDS: ASCORBIC ACID 250 MG TAB PO SCH (07:51)
[2021-07-11] MEDS: MECLIZINE 25 MG TABLET PO SCH ×3 (10:25→21:56)
[2021-07-11 14:00] VITALS: BP 159/81
[2021-07-11] MEDS: FLUTICASONE PROP 0.05% NASAL SPRAY 16 GM (FLONASE) NARES SCH (15:18)
[2021-07-11] MEDS: RIVAROXABAN 20 MG TAB (XARELTO) PO SCH (17:16)
[2021-07-11] MEDS: TAMSULOSIN 0.4 MG CAP PO SCH (21:56)
[2021-07-11] MEDS: QUEtiapine FUMARATE 50MG TAB PO SCH (21:57)
[2021-07-11] MEDS: ATORVASTATIN 20 MG TAB PO SCH (21:57)
[2021-07-11] MEDS: CARVedilol 3.125 MG TAB PO SCH (21:57)
[2021-07-11] MEDS: ACETAMINOPHEN TAB 650MG DOSE (2X325MG) PO PRN (21:59)
[2021-07-11 22:00] VITALS: BP 155/78
[2021-07-12 06:00] VITALS: BP 165/74
[2021-07-12] MEDS: LEVOTHYROXINE 75MCG TABLET (0.075MG) PO SCH (06:24)
[2021-07-12] MEDS: LEVOTHYROXINE 100MCG TABLET (0.1MG) PO SCH (06:24)
[2021-07-12 08:11] VITALS: BP_SYST 112; BP_SYST 135; BP_SYST 163; BP_DIAS 58; BP_DIAS 73; BP_DIAS 74
[2021-07-12] MEDS: MULTIVITAMINS/MINERALS THERAP 1 TAB PO SCH (08:21)
[2021-07-12] MEDS: LURASIDONE HCL 40MG TAB (LATUDA) PO SCH (08:21)
[2021-07-12] MEDS: HumaLOG INSULIN (NovoLOG) PER UNIT SC SCH ×4 (08:21→21:00)
[2021-07-12] MEDS: LEVEMIR (INSULIN DETEMIR) 1 UNITS/0.01ML SC SCH ×2 (08:21→21:15)
[2021-07-12] MEDS: EZETIMIBE 10MG TABLET (ZETIA) PO SCH (08:22)
[2021-07-12] MEDS: DULoxetine 30MG CAPSULE (CYMBALTA) PO SCH (08:22)
[2021-07-12] MEDS: POTASSIUM CHLORIDE 10MEQ SR TABLET PO SCH (08:22)
[2021-07-12] MEDS: MECLIZINE 25 MG TABLET PO SCH ×3 (08:22→21:14)
[2021-07-12] MEDS: PANTOPRAZOLE 40MG TAB (PROTONIX) PO SCH (08:23)
[2021-07-12] MEDS: CARVedilol 3.125 MG TAB PO SCH (08:23)
[2021-07-12] MEDS: CLOPIDOGREL 75 MG TAB PO SCH (08:23)
[2021-07-12] MEDS: PREGABALIN 50 MG CAP (LYRICA) PO SCH ×3 (08:23→21:24)
[2021-07-12] MEDS: tiZANidine 4 MG TAB PO SCH (08:24)
[2021-07-12] MEDS: ASCORBIC ACID 250 MG TAB PO SCH (08:24)
[2021-07-12] MEDS: FLUTICASONE PROP 0.05% NASAL SPRAY 16 GM (FLONASE) NARES SCH (08:24)
[2021-07-12 14:00] VITALS: BP 116/72
[2021-07-12] MEDS: LIDOCAINE 5% (LIDODERM) PATCH TD SCH (17:16)
[2021-07-12] MEDS: RIVAROXABAN 20 MG TAB (XARELTO) PO SCH (17:17)
[2021-07-12 21:00] VITALS: BP 182/74
[2021-07-12] MEDS: QUEtiapine FUMARATE 50MG TAB PO SCH (21:14)
[2021-07-12] MEDS: METOPROLOL TART 25 MG TABLET PO SCH (21:14)
[2021-07-12] MEDS: **NOTE PATIENT COMMENT** MISC XX SCH (21:18)
[2021-07-12] MEDS: ATORVASTATIN 20 MG TAB PO SCH (21:24)
[2021-07-13] MEDS: LEVOTHYROXINE 100MCG TABLET (0.1MG) PO SCH (05:33)
[2021-07-13] MEDS: LEVOTHYROXINE 75MCG TABLET (0.075MG) PO SCH (05:33)
[2021-07-13 06:00] VITALS: BP 166/82
[2021-07-13 06:35] LABS: HEMATOCRIT 39.6 % (42.0-52.0); MEAN CORPUSCULAR HEMOGLOBIN 28.8 pg (27.0-33.0); MEAN CORPUSCULAR HGB CONC 32.8 g/dl (32.0-36.5); MEAN CORPUSCULAR VOLUME 87.6 fl (80.0-96.0); PLATELET COUNT, AUTOMATED 304 10^3/uL (150-450); RED BLOOD COUNT 4.52 10^6/uL (4.30-6.10); WHITE BLOOD COUNT 7.7 10^3/uL (4.0-10.0)
[2021-07-13 07:00] VITALS: BP_SYST 130; BP_SYST 152; BP_SYST 170; BP_DIAS 82; BP_DIAS 86; BP_DIAS 88
[2021-07-13 07:02] LABS: BLOOD UREA NITROGEN 20 MG/DL (7-18); CALCIUM LEVEL 9.2 MG/DL (8.8-10.2); CARBON DIOXIDE LEVEL 28 MEQ/L (21-32); CHLORIDE LEVEL 107 MEQ/L (98-107); CREATININE FOR GFR 1.18 MG/DL (0.70-1.30); GLOMERULAR FILTRATION RATE > 60.0 (>49); GLUCOSE, FASTING 157 MG/DL (70-100); POTASSIUM SERUM 4.4 MEQ/L (3.5-5.1); SODIUM LEVEL 142 MEQ/L (136-145)
[2021-07-13] MEDS: HumaLOG INSULIN (NovoLOG) PER UNIT SC SCH ×4 (08:15→20:30)
[2021-07-13] MEDS: LEVEMIR (INSULIN DETEMIR) 1 UNITS/0.01ML SC SCH ×2 (08:15→20:31)
[2021-07-13] MEDS: DULoxetine 30MG CAPSULE (CYMBALTA) PO SCH (08:16)
[2021-07-13] MEDS: LURASIDONE HCL 40MG TAB (LATUDA) PO SCH (08:16)
[2021-07-13] MEDS: POTASSIUM CHLORIDE 10MEQ SR TABLET PO SCH (08:16)
[2021-07-13] MEDS: MECLIZINE 25 MG TABLET PO SCH ×3 (08:17→20:29)
[2021-07-13] MEDS: CLOPIDOGREL 75 MG TAB PO SCH (08:17)
[2021-07-13] MEDS: PREGABALIN 50 MG CAP (LYRICA) PO SCH ×3 (08:17→20:29)
[2021-07-13] MEDS: EZETIMIBE 10MG TABLET (ZETIA) PO SCH (08:17)
[2021-07-13] MEDS: MULTIVITAMINS/MINERALS THERAP 1 TAB PO SCH (08:17)
[2021-07-13] MEDS: PANTOPRAZOLE 40MG TAB (PROTONIX) PO SCH (08:17)
[2021-07-13] MEDS: ASCORBIC ACID 250 MG TAB PO SCH (08:17)
[2021-07-13] MEDS: ACETAMINOPHEN TAB 650MG DOSE (2X325MG) PO PRN (08:17)
[2021-07-13] MEDS: METOPROLOL TART 25 MG TABLET PO SCH ×2 (08:18→20:30)
[2021-07-13] MEDS: FLUTICASONE PROP 0.05% NASAL SPRAY 16 GM (FLONASE) NARES SCH (08:19)
[2021-07-13] MEDS: LIDOCAINE 5% (LIDODERM) PATCH TD SCH (12:32)
[2021-07-13 14:00] VITALS: BP 118/62
[2021-07-13] MEDS: RIVAROXABAN 20 MG TAB (XARELTO) PO SCH (17:20)
[2021-07-13] MEDS: QUEtiapine FUMARATE 50MG TAB PO SCH (20:29)
[2021-07-13] MEDS: ATORVASTATIN 20 MG TAB PO SCH (20:29)
[2021-07-13] MEDS: RAMELTEON 8 MG TAB (ROZEREM) PO SCH (20:29)
[2021-07-13 20:30] VITALS: BP 182/74
[2021-07-13] MEDS: **NOTE PATIENT COMMENT** MISC XX SCH (20:36)
[2021-07-13 21:22] VITALS: BP 166/72
[2021-07-14 05:53] LABS: HEMATOCRIT 40.4 % (42.0-52.0); HEMOGLOBIN 13.2 g/dl (13.5-17.5); MEAN CORPUSCULAR HGB CONC 32.7 g/dl (32.0-36.5); MEAN CORPUSCULAR VOLUME 88.8 fl (80.0-96.0); PLATELET COUNT, AUTOMATED 331 10^3/uL (150-450); RED BLOOD COUNT 4.55 10^6/uL (4.30-6.10); WHITE BLOOD COUNT 9.2 10^3/uL (4.0-10.0)
[2021-07-14] MEDS: LEVOTHYROXINE 100MCG TABLET (0.1MG) PO SCH (05:53)
[2021-07-14] MEDS: LEVOTHYROXINE 75MCG TABLET (0.075MG) PO SCH (05:53)
[2021-07-14 06:00] VITALS: BP 156/79
[2021-07-14 06:01] VITALS: BP_SYST 115; BP_SYST 130; BP_SYST 156; BP_DIAS 61; BP_DIAS 79; BP_DIAS 82
[2021-07-14 06:13] LABS: BLOOD UREA NITROGEN 21 MG/DL (7-18); CALCIUM LEVEL 9.2 MG/DL (8.8-10.2); CARBON DIOXIDE LEVEL 28 MEQ/L (21-32); CHLORIDE LEVEL 109 MEQ/L (98-107); CREATININE FOR GFR 1.11 MG/DL (0.70-1.30); GLOMERULAR FILTRATION RATE > 60.0 (>49); GLUCOSE, FASTING 174 MG/DL (70-100); POTASSIUM SERUM 4.5 MEQ/L (3.5-5.1); SODIUM LEVEL 139 MEQ/L (136-145)
[2021-07-14 08:00] VITALS: BP 148/73
[2021-07-14] MEDS: HumaLOG INSULIN (NovoLOG) PER UNIT SC SCH ×4 (08:19→20:05)
[2021-07-14] MEDS: PREGABALIN 50 MG CAP (LYRICA) PO SCH ×3 (09:18→20:02)
[2021-07-14] MEDS: POTASSIUM CHLORIDE 10MEQ SR TABLET PO SCH (09:18)
[2021-07-14] MEDS: LIDOCAINE 5% (LIDODERM) PATCH TD SCH (09:18)
[2021-07-14] MEDS: LEVEMIR (INSULIN DETEMIR) 1 UNITS/0.01ML SC SCH ×2 (09:18→20:05)
[2021-07-14] MEDS: MECLIZINE 25 MG TABLET PO SCH ×3 (09:19→20:02)
[2021-07-14] MEDS: DULoxetine 30MG CAPSULE (CYMBALTA) PO SCH (09:19)
[2021-07-14] MEDS: METOPROLOL TART 25 MG TABLET PO SCH (09:19)
[2021-07-14] MEDS: EZETIMIBE 10MG TABLET (ZETIA) PO SCH (09:19)
[2021-07-14] MEDS: LURASIDONE HCL 40MG TAB (LATUDA) PO SCH (09:19)
[2021-07-14] MEDS: ASCORBIC ACID 250 MG TAB PO SCH (09:19)
[2021-07-14] MEDS: MULTIVITAMINS/MINERALS THERAP 1 TAB PO SCH (09:19)
[2021-07-14] MEDS: FLUTICASONE PROP 0.05% NASAL SPRAY 16 GM (FLONASE) NARES SCH (09:20)
[2021-07-14] MEDS: CLOPIDOGREL 75 MG TAB PO SCH (09:20)
[2021-07-14] MEDS: PANTOPRAZOLE 40MG TAB (PROTONIX) PO SCH (09:20)
[2021-07-14 14:00] VITALS: BP 164/79
[2021-07-14] MEDS: RIVAROXABAN 20 MG TAB (XARELTO) PO SCH (17:45)
[2021-07-14 20:00] VITALS: BP_SYST 147; BP_SYST 148; BP_SYST 168; BP_DIAS 77; BP_DIAS 79
[2021-07-14] MEDS: RAMELTEON 8 MG TAB (ROZEREM) PO SCH (20:02)
[2021-07-14] MEDS: QUEtiapine FUMARATE 50MG TAB PO SCH (20:02)
[2021-07-14] MEDS: ATORVASTATIN 20 MG TAB PO SCH (20:02)
[2021-07-14] MEDS: **hydrALAZINE HCL** 25 MG TAB PO PRN (20:04)
[2021-07-14] MEDS: **NOTE PATIENT COMMENT** MISC XX SCH (20:16)
[2021-07-14 21:00] VITALS: BP 155/74
[2021-07-15] MEDS: LEVOTHYROXINE 75MCG TABLET (0.075MG) PO SCH (05:11)
[2021-07-15] MEDS: LEVOTHYROXINE 100MCG TABLET (0.1MG) PO SCH (05:11)
[2021-07-15 06:00] VITALS: BP 157/75
[2021-07-15 06:35] LABS: HEMATOCRIT 40.6 % (42.0-52.0); HEMOGLOBIN 13.3 g/dl (13.5-17.5); MEAN CORPUSCULAR HEMOGLOBIN 29.1 pg (27.0-33.0); MEAN CORPUSCULAR HGB CONC 32.8 g/dl (32.0-36.5); MEAN CORPUSCULAR VOLUME 88.8 fl (80.0-96.0); PLATELET COUNT, AUTOMATED 302 10^3/uL (150-450); RED BLOOD COUNT 4.57 10^6/uL (4.30-6.10)
[2021-07-15 07:07] LABS: BLOOD UREA NITROGEN 20 MG/DL (7-18); CALCIUM LEVEL 9.4 MG/DL (8.8-10.2); CARBON DIOXIDE LEVEL 27 MEQ/L (21-32); CHLORIDE LEVEL 107 MEQ/L (98-107); CREATININE FOR GFR 1.04 MG/DL (0.70-1.30); GLOMERULAR FILTRATION RATE > 60.0 (>49); GLUCOSE, FASTING 155 MG/DL (70-100); POTASSIUM SERUM 4.6 MEQ/L (3.5-5.1); SODIUM LEVEL 139 MEQ/L (136-145)
[2021-07-15] MEDS: FLUTICASONE PROP 0.05% NASAL SPRAY 16 GM (FLONASE) NARES SCH (09:00)
[2021-07-15] MEDS: LURASIDONE HCL 40MG TAB (LATUDA) PO SCH (09:06)
[2021-07-15] MEDS: POTASSIUM CHLORIDE 10MEQ SR TABLET PO SCH (09:06)
[2021-07-15] MEDS: ASCORBIC ACID 250 MG TAB PO SCH (09:07)
[2021-07-15] MEDS: DULoxetine 30MG CAPSULE (CYMBALTA) PO SCH (09:07)
[2021-07-15] MEDS: MULTIVITAMINS/MINERALS THERAP 1 TAB PO SCH (09:07)
[2021-07-15] MEDS: CLOPIDOGREL 75 MG TAB PO SCH (09:07)
[2021-07-15] MEDS: LIDOCAINE 5% (LIDODERM) PATCH TD SCH (09:07)
[2021-07-15] MEDS: PANTOPRAZOLE 40MG TAB (PROTONIX) PO SCH (09:07)
[2021-07-15] MEDS: MECLIZINE 25 MG TABLET PO SCH ×3 (09:07→21:25)
[2021-07-15] MEDS: PREGABALIN 50 MG CAP (LYRICA) PO SCH ×3 (09:07→21:25)
[2021-07-15] MEDS: HumaLOG INSULIN (NovoLOG) PER UNIT SC SCH ×4 (09:09→20:58)
[2021-07-15] MEDS: LEVEMIR (INSULIN DETEMIR) 1 UNITS/0.01ML SC SCH ×2 (09:10→21:24)
[2021-07-15] MEDS: EZETIMIBE 10MG TABLET (ZETIA) PO SCH (09:10)
[2021-07-15 10:00] VITALS: BP_SYST 142; BP_SYST 157; BP_SYST 161; BP_DIAS 74; BP_DIAS 77; BP_DIAS 81
[2021-07-15] MEDS ORDERED: HYDROMORPHONE HCL 0.5 MG/ 0.5 ML SYRINGE (J1170 PER 1) IV ONE (15:50)
[2021-07-15] MEDS: RIVAROXABAN 20 MG TAB (XARELTO) PO SCH (17:58)
[2021-07-15] MEDS ORDERED: PERCOCET 5MG/325MG TAB PO ONE (21:10)
[2021-07-15] MEDS: **NOTE PATIENT COMMENT** MISC XX SCH (21:24)
[2021-07-15] MEDS: QUEtiapine FUMARATE 50MG TAB PO SCH (21:25)
[2021-07-15] MEDS: RAMELTEON 8 MG TAB (ROZEREM) PO SCH (21:25)
[2021-07-15] MEDS: ATORVASTATIN 20 MG TAB PO SCH (21:25)
[2021-07-15 22:00] VITALS: BP 140/80
[2021-07-16] MEDS: LEVOTHYROXINE 75MCG TABLET (0.075MG) PO SCH (05:13)
[2021-07-16] MEDS: LEVOTHYROXINE 100MCG TABLET (0.1MG) PO SCH (05:13)
[2021-07-16 06:00] VITALS: BP 141/78
[2021-07-16 06:00] LABS: HEMATOCRIT 39.8 % (42.0-52.0); HEMOGLOBIN 12.9 g/dl (13.5-17.5); MEAN CORPUSCULAR HEMOGLOBIN 28.9 pg (27.0-33.0); MEAN CORPUSCULAR HGB CONC 32.4 g/dl (32.0-36.5); MEAN CORPUSCULAR VOLUME 89.2 fl (80.0-96.0); PLATELET COUNT, AUTOMATED 292 10^3/uL (150-450); RED BLOOD COUNT 4.46 10^6/uL (4.30-6.10); WHITE BLOOD COUNT 8.2 10^3/uL (4.0-10.0)
[2021-07-16 06:34] LABS: BLOOD UREA NITROGEN 20 MG/DL (7-18); CALCIUM LEVEL 9.3 MG/DL (8.8-10.2); CARBON DIOXIDE LEVEL 28 MEQ/L (21-32); CHLORIDE LEVEL 109 MEQ/L (98-107); CREATININE FOR GFR 1.03 MG/DL (0.70-1.30); GLOMERULAR FILTRATION RATE > 60.0 (>49); GLUCOSE, FASTING 173 MG/DL (70-100); POTASSIUM SERUM 5.5 MEQ/L (3.5-5.1); SODIUM LEVEL 140 MEQ/L (136-145)
[2021-07-16 09:00] VITALS: BP 141/78
[2021-07-16] MEDS: FLUTICASONE PROP 0.05% NASAL SPRAY 16 GM (FLONASE) NARES SCH (09:00)
[2021-07-16] MEDS ORDERED: CALCIUM GLUCONATE 1,000 MG in D5W MINI-BAG PLUS 100 ML IV ONE (09:00)
[2021-07-16] MEDS: HumaLOG INSULIN (NovoLOG) PER UNIT SC SCH ×4 (09:27→20:57)
[2021-07-16] MEDS: ASCORBIC ACID 250 MG TAB PO SCH (09:30)
[2021-07-16] MEDS: LURASIDONE HCL 40MG TAB (LATUDA) PO SCH (09:30)
[2021-07-16] MEDS: PANTOPRAZOLE 40MG TAB (PROTONIX) PO SCH (09:30)
[2021-07-16] MEDS: CLOPIDOGREL 75 MG TAB PO SCH (09:30)
[2021-07-16] MEDS: MECLIZINE 25 MG TABLET PO SCH ×3 (09:30→21:14)
[2021-07-16] MEDS: MULTIVITAMINS/MINERALS THERAP 1 TAB PO SCH (09:33)
[2021-07-16] MEDS: DULoxetine 30MG CAPSULE (CYMBALTA) PO SCH (09:34)
[2021-07-16] MEDS: LEVEMIR (INSULIN DETEMIR) 1 UNITS/0.01ML SC SCH ×2 (09:38→21:13)
[2021-07-16] MEDS: LIDOCAINE 5% (LIDODERM) PATCH TD SCH (09:39)
[2021-07-16] MEDS: EZETIMIBE 10MG TABLET (ZETIA) PO SCH (09:44)
[2021-07-16] MEDS: PREGABALIN 50 MG CAP (LYRICA) PO SCH ×3 (09:44→21:14)
[2021-07-16] MEDS ORDERED: SOD POLYSTYRENE SULFONATE SUSP 15 GM/60 ML UD PO ONE (10:00)
[2021-07-16] MEDS: ACETAMINOPHEN TAB 650MG DOSE (2X325MG) PO PRN ×2 (15:56→21:14)
[2021-07-16] MEDS: RIVAROXABAN 20 MG TAB (XARELTO) PO SCH (17:18)
[2021-07-16] MEDS: RAMELTEON 8 MG TAB (ROZEREM) PO SCH (21:14)
[2021-07-16] MEDS: **NOTE PATIENT COMMENT** MISC XX SCH (21:14)
[2021-07-16] MEDS: QUEtiapine FUMARATE 50MG TAB PO SCH (21:14)
[2021-07-16] MEDS: ATORVASTATIN 20 MG TAB PO SCH (21:14)
[2021-07-16 22:00] VITALS: BP 154/72
[2021-07-17] MEDS: LEVOTHYROXINE 100MCG TABLET (0.1MG) PO SCH (05:43)
[2021-07-17] MEDS: LEVOTHYROXINE 75MCG TABLET (0.075MG) PO SCH (05:43)
[2021-07-17] MEDS: ACETAMINOPHEN TAB 650MG DOSE (2X325MG) PO PRN ×2 (05:43→13:58)
[2021-07-17 05:46] VITALS: BP 139/70
[2021-07-17 06:35] LABS: HEMATOCRIT 39.5 % (42.0-52.0); HEMOGLOBIN 12.8 g/dl (13.5-17.5); MEAN CORPUSCULAR HGB CONC 32.4 g/dl (32.0-36.5); MEAN CORPUSCULAR VOLUME 89.4 fl (80.0-96.0); PLATELET COUNT, AUTOMATED 306 10^3/uL (150-450); RED BLOOD COUNT 4.42 10^6/uL (4.30-6.10); WHITE BLOOD COUNT 7.5 10^3/uL (4.0-10.0)
[2021-07-17 06:54] LABS: BLOOD UREA NITROGEN 21 MG/DL (7-18); CALCIUM LEVEL 9.2 MG/DL (8.8-10.2); CARBON DIOXIDE LEVEL 28 MEQ/L (21-32); CHLORIDE LEVEL 106 MEQ/L (98-107); CREATININE FOR GFR 1.01 MG/DL (0.70-1.30); GLOMERULAR FILTRATION RATE > 60.0 (>49); GLUCOSE, FASTING 157 MG/DL (70-100); POTASSIUM SERUM 4.1 MEQ/L (3.5-5.1); SODIUM LEVEL 139 MEQ/L (136-145)
[2021-07-17] MEDS: LEVEMIR (INSULIN DETEMIR) 1 UNITS/0.01ML SC SCH ×2 (09:00→20:58)
[2021-07-17] MEDS: HumaLOG INSULIN (NovoLOG) PER UNIT SC SCH ×4 (09:56→20:58)
[2021-07-17] MEDS: PANTOPRAZOLE 40MG TAB (PROTONIX) PO SCH (09:57)
[2021-07-17] MEDS: FLUTICASONE PROP 0.05% NASAL SPRAY 16 GM (FLONASE) NARES SCH ×2 (09:57→10:04)
[2021-07-17] MEDS: MECLIZINE 25 MG TABLET PO SCH ×3 (09:57→20:59)
[2021-07-17] MEDS: LURASIDONE HCL 40MG TAB (LATUDA) PO SCH (09:57)
[2021-07-17] MEDS: MULTIVITAMINS/MINERALS THERAP 1 TAB PO SCH (09:57)
[2021-07-17] MEDS: LIDOCAINE 5% (LIDODERM) PATCH TD SCH (09:57)
[2021-07-17] MEDS: CLOPIDOGREL 75 MG TAB PO SCH (09:57)
[2021-07-17] MEDS: EZETIMIBE 10MG TABLET (ZETIA) PO SCH (09:57)
[2021-07-17] MEDS: PREGABALIN 50 MG CAP (LYRICA) PO SCH ×3 (09:57→20:59)
[2021-07-17] MEDS: ASCORBIC ACID 250 MG TAB PO SCH (09:57)
[2021-07-17] MEDS: DULoxetine 30MG CAPSULE (CYMBALTA) PO SCH (09:58)
[2021-07-17 12:02] VITALS: BP_SYST 133; BP_SYST 135; BP_SYST 148; BP_DIAS 72; BP_DIAS 76; BP_DIAS 79
[2021-07-17 13:06] LABS: ALBUMIN 3.1 GM/DL (3.2-5.2); ALT/SGPT 34 U/L (12-78); BILIRUBIN,DIRECT 0.1 MG/DL (0.0-0.2); BILIRUBIN,TOTAL 0.5 MG/DL (0.2-1.0); TOTAL PROTEIN 7.1 GM/DL (6.4-8.2)
[2021-07-17 14:00] VITALS: BP 147/75
[2021-07-17] MEDS: RIVAROXABAN 20 MG TAB (XARELTO) PO SCH (17:03)
[2021-07-17] MEDS ORDERED: PILL CUTTER 1 EACH XX PRN (17:20)
[2021-07-17] MEDS ORDERED: BENZONATATE 100MG CAPSULE PO PRN (20:35)
[2021-07-17] MEDS: **NOTE PATIENT COMMENT** MISC XX SCH (20:58)
[2021-07-17] MEDS: RAMELTEON 8 MG TAB (ROZEREM) PO SCH (20:59)
[2021-07-17] MEDS: QUEtiapine FUMARATE 50MG TAB PO SCH (20:59)
[2021-07-17] MEDS: ATORVASTATIN 20 MG TAB PO SCH (20:59)
[2021-07-18] MEDS: ACETAMINOPHEN TAB 650MG DOSE (2X325MG) PO PRN (05:29)
[2021-07-18] MEDS: LEVOTHYROXINE 75MCG TABLET (0.075MG) PO SCH (05:29)
[2021-07-18] MEDS: LEVOTHYROXINE 100MCG TABLET (0.1MG) PO SCH (05:29)
[2021-07-18 06:00] VITALS: BP 134/77
[2021-07-18 07:04] LABS: BASO # 0.1 10^3/uL (0.0-0.2); EOS # 0.5 10^3/uL (0.0-0.5); EOS % 5.5 % (0.0-3.0); HEMATOCRIT 39.5 % (42.0-52.0); HEMOGLOBIN 12.8 g/dl (13.5-17.5); LYMPH # 1.6 10^3/uL (1.5-5.0); LYMPH % 18.9 % (24.0-44.0); MEAN CORPUSCULAR HGB CONC 32.4 g/dl (32.0-36.5); MEAN CORPUSCULAR VOLUME 89.4 fl (80.0-96.0); MONO # 0.5 10^3/uL (0.0-0.8); MONO % 6.4 % (2.0-8.0); NEUTROPHILS # 5.7 10^3/uL (1.5-8.5); PLATELET COUNT, AUTOMATED 304 10^3/uL (150-450); RED BLOOD COUNT 4.42 10^6/uL (4.30-6.10); WHITE BLOOD COUNT 8.4 10^3/uL (4.0-10.0)
[2021-07-18 07:28] LABS: BLOOD UREA NITROGEN 19 MG/DL (7-18); CALCIUM LEVEL 8.9 MG/DL (8.8-10.2); CARBON DIOXIDE LEVEL 31 MEQ/L (21-32); CHLORIDE LEVEL 106 MEQ/L (98-107); CREATININE FOR GFR 1.16 MG/DL (0.70-1.30); GLOMERULAR FILTRATION RATE > 60.0 (>49); GLUCOSE, FASTING 172 MG/DL (70-100); POTASSIUM SERUM 4.4 MEQ/L (3.5-5.1); SODIUM LEVEL 139 MEQ/L (136-145)
[2021-07-18] MEDS: HumaLOG INSULIN (NovoLOG) PER UNIT SC SCH ×4 (08:41→20:13)
[2021-07-18] MEDS: FLUTICASONE PROP 0.05% NASAL SPRAY 16 GM (FLONASE) NARES SCH (08:41)
[2021-07-18] MEDS: LEVEMIR (INSULIN DETEMIR) 1 UNITS/0.01ML SC SCH ×2 (08:41→20:17)
[2021-07-18] MEDS: LURASIDONE HCL 40MG TAB (LATUDA) PO SCH (08:42)
[2021-07-18] MEDS: MULTIVITAMINS/MINERALS THERAP 1 TAB PO SCH (08:43)
[2021-07-18] MEDS: EZETIMIBE 10MG TABLET (ZETIA) PO SCH (08:43)
[2021-07-18] MEDS: DULoxetine 30MG CAPSULE (CYMBALTA) PO SCH (08:43)
[2021-07-18] MEDS: PANTOPRAZOLE 40MG TAB (PROTONIX) PO SCH (08:43)
[2021-07-18] MEDS: PREGABALIN 50 MG CAP (LYRICA) PO SCH ×3 (08:43→20:20)
[2021-07-18] MEDS: CLOPIDOGREL 75 MG TAB PO SCH (08:44)
[2021-07-18] MEDS: LIDOCAINE 5% (LIDODERM) PATCH TD SCH (08:44)
[2021-07-18] MEDS: MECLIZINE 25 MG TABLET PO SCH ×3 (08:44→20:18)
[2021-07-18] MEDS: ASCORBIC ACID 250 MG TAB PO SCH (08:44)
[2021-07-18 09:00] VITALS: BP_SYST 103; BP_SYST 114; BP_SYST 136; BP_DIAS 65; BP_DIAS 68; BP_DIAS 71
[2021-07-18] MEDS: RIVAROXABAN 20 MG TAB (XARELTO) PO SCH (17:25)
[2021-07-18] MEDS: ATORVASTATIN 20 MG TAB PO SCH (20:18)
[2021-07-18] MEDS: RAMELTEON 8 MG TAB (ROZEREM) PO SCH (20:18)
[2021-07-18] MEDS: QUEtiapine FUMARATE 50MG TAB PO SCH (20:18)
[2021-07-18] MEDS: **NOTE PATIENT COMMENT** MISC XX SCH (20:24)
[2021-07-19] MEDS: LEVOTHYROXINE 100MCG TABLET (0.1MG) PO SCH (05:00)
[2021-07-19] MEDS: LEVOTHYROXINE 75MCG TABLET (0.075MG) PO SCH (05:00)
[2021-07-19 06:00] VITALS: BP 146/67
[2021-07-19] MEDS: FLUTICASONE PROP 0.05% NASAL SPRAY 16 GM (FLONASE) NARES SCH (09:00)
[2021-07-19] MEDS: LIDOCAINE 5% (LIDODERM) PATCH TD SCH (09:06)
[2021-07-19] MEDS: LEVEMIR (INSULIN DETEMIR) 1 UNITS/0.01ML SC SCH ×2 (09:07→19:57)
[2021-07-19] MEDS: MULTIVITAMINS/MINERALS THERAP 1 TAB PO SCH (09:07)
[2021-07-19] MEDS: HumaLOG INSULIN (NovoLOG) PER UNIT SC SCH ×4 (09:07→20:46)
[2021-07-19] MEDS: CLOPIDOGREL 75 MG TAB PO SCH (09:07)
[2021-07-19] MEDS: PREGABALIN 50 MG CAP (LYRICA) PO SCH ×3 (09:07→19:57)
[2021-07-19] MEDS: ASCORBIC ACID 250 MG TAB PO SCH (09:07)
[2021-07-19] MEDS: MECLIZINE 25 MG TABLET PO SCH ×3 (09:07→19:57)
[2021-07-19] MEDS: DULoxetine 30MG CAPSULE (CYMBALTA) PO SCH (09:07)
[2021-07-19] MEDS: LURASIDONE HCL 40MG TAB (LATUDA) PO SCH (09:08)
[2021-07-19] MEDS: PANTOPRAZOLE 40MG TAB (PROTONIX) PO SCH (09:08)
[2021-07-19] MEDS: EZETIMIBE 10MG TABLET (ZETIA) PO SCH (09:08)
[2021-07-19] MEDS: CHLORASEPTIC SPRAY MT PRN (09:09)
[2021-07-19] MEDS ORDERED: BISACODYL 5 MG TAB PO PRN (12:25)
[2021-07-19] MEDS: RIVAROXABAN 20 MG TAB (XARELTO) PO SCH (18:03)
[2021-07-19] MEDS: SENOKOT S TAB PO PRN (19:56)
[2021-07-19] MEDS: ATORVASTATIN 20 MG TAB PO SCH (19:57)
[2021-07-19] MEDS: QUEtiapine FUMARATE 50MG TAB PO SCH (19:57)
[2021-07-19] MEDS: RAMELTEON 8 MG TAB (ROZEREM) PO SCH (19:58)
[2021-07-19] MEDS: **NOTE PATIENT COMMENT** MISC XX SCH (20:46)
[2021-07-20] MEDS: LEVOTHYROXINE 75MCG TABLET (0.075MG) PO SCH (05:00)
[2021-07-20] MEDS: LEVOTHYROXINE 100MCG TABLET (0.1MG) PO SCH (05:00)
[2021-07-20] MEDS: **hydrALAZINE HCL** 25 MG TAB PO PRN (05:10)
[2021-07-20 05:50] VITALS: BP 152/66
[2021-07-20] MEDS: FLUTICASONE PROP 0.05% NASAL SPRAY 16 GM (FLONASE) NARES SCH (09:00)
[2021-07-20] MEDS: LIDOCAINE 5% (LIDODERM) PATCH TD SCH (09:29)
[2021-07-20] MEDS: CLOPIDOGREL 75 MG TAB PO SCH (09:30)
[2021-07-20] MEDS: PREGABALIN 50 MG CAP (LYRICA) PO SCH ×3 (09:30→20:50)
[2021-07-20] MEDS: HumaLOG INSULIN (NovoLOG) PER UNIT SC SCH ×4 (09:30→21:00)
[2021-07-20] MEDS: ASCORBIC ACID 250 MG TAB PO SCH (09:30)
[2021-07-20] MEDS: PANTOPRAZOLE 40MG TAB (PROTONIX) PO SCH (09:30)
[2021-07-20] MEDS: MULTIVITAMINS/MINERALS THERAP 1 TAB PO SCH (09:30)
[2021-07-20] MEDS: DULoxetine 30MG CAPSULE (CYMBALTA) PO SCH (09:30)
[2021-07-20] MEDS: LEVEMIR (INSULIN DETEMIR) 1 UNITS/0.01ML SC SCH ×2 (09:30→20:50)
[2021-07-20] MEDS: MECLIZINE 25 MG TABLET PO SCH ×3 (09:30→20:51)
[2021-07-20] MEDS: EZETIMIBE 10MG TABLET (ZETIA) PO SCH (09:31)
[2021-07-20] MEDS: LURASIDONE HCL 40MG TAB (LATUDA) PO SCH (09:31)
[2021-07-20] MEDS: MOM 30ML SUSPENSION UDC PO PRN (09:35)
[2021-07-20] MEDS: RIVAROXABAN 20 MG TAB (XARELTO) PO SCH (17:07)
[2021-07-20] MEDS: CHLORASEPTIC SPRAY MT PRN (20:49)
[2021-07-20] MEDS: ATORVASTATIN 20 MG TAB PO SCH (20:50)
[2021-07-20] MEDS: RAMELTEON 8 MG TAB (ROZEREM) PO SCH (20:50)
[2021-07-20] MEDS: QUEtiapine FUMARATE 50MG TAB PO SCH (20:50)
[2021-07-20] MEDS: **NOTE PATIENT COMMENT** MISC XX SCH (20:51)
[2021-07-20 23:53] VITALS: BP 160/78
[2021-07-21 05:43] VITALS: BP 160/69
[2021-07-21] MEDS: LEVOTHYROXINE 100MCG TABLET (0.1MG) PO SCH (06:30)
[2021-07-21] MEDS: LEVOTHYROXINE 75MCG TABLET (0.075MG) PO SCH (06:30)
[2021-07-21 07:35] VITALS: BP 119/71
[2021-07-21] MEDS: FLUTICASONE PROP 0.05% NASAL SPRAY 16 GM (FLONASE) NARES SCH (09:00)
[2021-07-21] MEDS: LEVEMIR (INSULIN DETEMIR) 1 UNITS/0.01ML SC SCH ×2 (09:27→20:50)
[2021-07-21] MEDS: LIDOCAINE 5% (LIDODERM) PATCH TD SCH (09:28)
[2021-07-21] MEDS: HumaLOG INSULIN (NovoLOG) PER UNIT SC SCH ×4 (09:28→21:00)
[2021-07-21] MEDS: DULoxetine 30MG CAPSULE (CYMBALTA) PO SCH (09:29)
[2021-07-21] MEDS: LURASIDONE HCL 40MG TAB (LATUDA) PO SCH (09:29)
[2021-07-21] MEDS: MULTIVITAMINS/MINERALS THERAP 1 TAB PO SCH (09:37)
[2021-07-21] MEDS: EZETIMIBE 10MG TABLET (ZETIA) PO SCH (09:38)
[2021-07-21] MEDS: ASCORBIC ACID 250 MG TAB PO SCH (09:38)
[2021-07-21] MEDS: PREGABALIN 50 MG CAP (LYRICA) PO SCH ×3 (09:38→20:18)
[2021-07-21] MEDS: MECLIZINE 25 MG TABLET PO SCH ×3 (09:38→20:18)
[2021-07-21] MEDS: CLOPIDOGREL 75 MG TAB PO SCH (09:38)
[2021-07-21] MEDS: PANTOPRAZOLE 40MG TAB (PROTONIX) PO SCH (09:38)
[2021-07-21] MEDS: MORPHINE 30 MG TAB **MSIR PO PRN ×2 (10:08→16:36)
[2021-07-21 14:36] VITALS: BP 172/71
[2021-07-21 14:42] LABS: HEMATOCRIT 40.6 % (42.0-52.0); HEMOGLOBIN 13.3 g/dl (13.5-17.5); MEAN CORPUSCULAR HEMOGLOBIN 28.9 pg (27.0-33.0); MEAN CORPUSCULAR HGB CONC 32.8 g/dl (32.0-36.5); MEAN CORPUSCULAR VOLUME 88.1 fl (80.0-96.0); PLATELET COUNT, AUTOMATED 301 10^3/uL (150-450); RED BLOOD COUNT 4.61 10^6/uL (4.30-6.10)
[2021-07-21 15:05] LABS: BLOOD UREA NITROGEN 18 MG/DL (7-18); CALCIUM LEVEL 9.4 MG/DL (8.8-10.2); CARBON DIOXIDE LEVEL 30 MEQ/L (21-32); CHLORIDE LEVEL 106 MEQ/L (98-107); CREATININE FOR GFR 1.04 MG/DL (0.70-1.30); GLOMERULAR FILTRATION RATE > 60.0 (>49); GLUCOSE, FASTING 149 MG/DL (70-100); POTASSIUM SERUM 4.5 MEQ/L (3.5-5.1); SODIUM LEVEL 141 MEQ/L (136-145)
[2021-07-21] MEDS ORDERED: **hydrALAZINE** 10 MG TAB PO PRN (15:10)
[2021-07-21] MEDS: guaiFENesin ER 600 MG TAB PO SCH (17:02)
[2021-07-21] MEDS: RIVAROXABAN 20 MG TAB (XARELTO) PO SCH (17:02)
[2021-07-21] MEDS: CETIRIZINE (ZyrTEC) 10 MG TAB PO SCH (17:02)
[2021-07-21] MEDS: **hydrALAZINE HCL** 25 MG TAB PO PRN (17:03)
[2021-07-21] MEDS: QUEtiapine FUMARATE 50MG TAB PO SCH (20:18)
[2021-07-21] MEDS: **NOTE PATIENT COMMENT** MISC XX SCH (20:19)
[2021-07-21] MEDS: ATORVASTATIN 20 MG TAB PO SCH (20:19)
[2021-07-21] MEDS: RAMELTEON 8 MG TAB (ROZEREM) PO SCH (20:19)
[2021-07-21] MEDS ORDERED: amLODIPine 5 MG TAB PO PRN (21:00)
[2021-07-22 05:32] VITALS: BP 140/65
[2021-07-22] MEDS: LEVOTHYROXINE 75MCG TABLET (0.075MG) PO SCH (06:07)
[2021-07-22] MEDS: LEVOTHYROXINE 100MCG TABLET (0.1MG) PO SCH (06:07)
[2021-07-22] MEDS: HumaLOG INSULIN (NovoLOG) PER UNIT SC SCH ×4 (08:14→21:00)
[2021-07-22] MEDS: CETIRIZINE (ZyrTEC) 10 MG TAB PO SCH (08:15)
[2021-07-22] MEDS: LIDOCAINE 5% (LIDODERM) PATCH TD SCH (08:15)
[2021-07-22] MEDS: DULoxetine 30MG CAPSULE (CYMBALTA) PO SCH (08:15)
[2021-07-22] MEDS: LEVEMIR (INSULIN DETEMIR) 1 UNITS/0.01ML SC SCH ×2 (08:15→21:53)
[2021-07-22] MEDS: LURASIDONE HCL 40MG TAB (LATUDA) PO SCH (08:15)
[2021-07-22] MEDS: MULTIVITAMINS/MINERALS THERAP 1 TAB PO SCH (08:15)
[2021-07-22] MEDS: CLOPIDOGREL 75 MG TAB PO SCH (08:16)
[2021-07-22] MEDS: ASCORBIC ACID 250 MG TAB PO SCH (08:16)
[2021-07-22] MEDS: MECLIZINE 25 MG TABLET PO SCH ×3 (08:16→21:52)
[2021-07-22] MEDS: PANTOPRAZOLE 40MG TAB (PROTONIX) PO SCH (08:16)
[2021-07-22] MEDS: guaiFENesin ER 600 MG TAB PO SCH ×2 (08:16→21:53)
[2021-07-22] MEDS: FLUTICASONE PROP 0.05% NASAL SPRAY 16 GM (FLONASE) NARES SCH (08:17)
[2021-07-22] MEDS: EZETIMIBE 10MG TABLET (ZETIA) PO SCH (08:24)
[2021-07-22] MEDS: PREGABALIN 50 MG CAP (LYRICA) PO SCH ×3 (08:24→21:53)
[2021-07-22] MEDS: RIVAROXABAN 20 MG TAB (XARELTO) PO SCH (18:30)
[2021-07-22] MEDS: QUEtiapine FUMARATE 50MG TAB PO SCH (21:53)
[2021-07-22] MEDS: ATORVASTATIN 20 MG TAB PO SCH (21:53)
[2021-07-22] MEDS: RAMELTEON 8 MG TAB (ROZEREM) PO SCH (21:53)
[2021-07-22] MEDS: MORPHINE 30 MG TAB **MSIR PO PRN (21:54)
[2021-07-22] MEDS: **NOTE PATIENT COMMENT** MISC XX SCH (21:54)
[2021-07-22] MEDS: CHLORASEPTIC SPRAY MT PRN (21:55)
[2021-07-23] MEDS: IPRATROPIUM 0.5MG/ALBUTEROL 2.5MG INH SOL UD 3ML (DUONEB) NEB PRN (02:57)
[2021-07-23 05:47] VITALS: BP 148/71
[2021-07-23] MEDS: LEVOTHYROXINE 75MCG TABLET (0.075MG) PO SCH (06:58)
[2021-07-23] MEDS: LEVOTHYROXINE 100MCG TABLET (0.1MG) PO SCH (06:58)
[2021-07-23 07:48] LABS: BASO # 0.1 10^3/uL (0.0-0.2); BASO % 0.7 % (0.0-1.0); EOS # 0.4 10^3/uL (0.0-0.5); EOS % 5.9 % (0.0-3.0); HEMATOCRIT 35.8 % (42.0-52.0); HEMOGLOBIN 11.7 g/dl (13.5-17.5); LYMPH # 1.8 10^3/uL (1.5-5.0); LYMPH % 26.1 % (24.0-44.0); MEAN CORPUSCULAR HEMOGLOBIN 29.1 pg (27.0-33.0); MEAN CORPUSCULAR HGB CONC 32.7 g/dl (32.0-36.5); MEAN CORPUSCULAR VOLUME 89.1 fl (80.0-96.0); MONO # 0.5 10^3/uL (0.0-0.8); NEUTROPHILS # 4.1 10^3/uL (1.5-8.5); NEUTROPHILS % 60.2 % (36.0-66.0); PLATELET COUNT, AUTOMATED 280 10^3/uL (150-450); RED BLOOD COUNT 4.02 10^6/uL (4.30-6.10); WHITE BLOOD COUNT 6.7 10^3/uL (4.0-10.0)
[2021-07-23 08:10] LABS: BLOOD UREA NITROGEN 22 MG/DL (7-18); CALCIUM LEVEL 8.8 MG/DL (8.8-10.2); CARBON DIOXIDE LEVEL 30 MEQ/L (21-32); CHLORIDE LEVEL 107 MEQ/L (98-107); GLOMERULAR FILTRATION RATE > 60.0 (>49); GLUCOSE, FASTING 173 MG/DL (70-100); MAGNESIUM LEVEL 1.9 MG/DL (1.8-2.4); POTASSIUM SERUM 4.2 MEQ/L (3.5-5.1); SODIUM LEVEL 141 MEQ/L (136-145)
[2021-07-23] MEDS: LEVEMIR (INSULIN DETEMIR) 1 UNITS/0.01ML SC SCH ×2 (08:50→20:44)
[2021-07-23] MEDS: CLOPIDOGREL 75 MG TAB PO SCH (08:51)
[2021-07-23] MEDS: MULTIVITAMINS/MINERALS THERAP 1 TAB PO SCH (08:51)
[2021-07-23] MEDS: FLUTICASONE PROP 0.05% NASAL SPRAY 16 GM (FLONASE) NARES SCH (08:51)
[2021-07-23] MEDS: PANTOPRAZOLE 40MG TAB (PROTONIX) PO SCH (08:51)
[2021-07-23] MEDS: MECLIZINE 25 MG TABLET PO SCH ×3 (08:51→20:43)
[2021-07-23] MEDS: ASCORBIC ACID 250 MG TAB PO SCH (08:51)
[2021-07-23] MEDS: HumaLOG INSULIN (NovoLOG) PER UNIT SC SCH ×4 (08:51→20:44)
[2021-07-23] MEDS: LIDOCAINE 5% (LIDODERM) PATCH TD SCH (08:51)
[2021-07-23] MEDS: CETIRIZINE (ZyrTEC) 10 MG TAB PO SCH (08:52)
[2021-07-23] MEDS: PREGABALIN 50 MG CAP (LYRICA) PO SCH ×3 (08:52→20:43)
[2021-07-23] MEDS: LURASIDONE HCL 40MG TAB (LATUDA) PO SCH (08:52)
[2021-07-23] MEDS: EZETIMIBE 10MG TABLET (ZETIA) PO SCH (08:52)
[2021-07-23] MEDS: guaiFENesin ER 600 MG TAB PO SCH ×2 (08:52→20:43)
[2021-07-23] MEDS: DULoxetine 30MG CAPSULE (CYMBALTA) PO SCH (08:52)
[2021-07-23] MEDS: MORPHINE 30 MG TAB **MSIR PO PRN ×2 (15:37→20:45)
[2021-07-23] MEDS: RIVAROXABAN 20 MG TAB (XARELTO) PO SCH (18:47)
[2021-07-23] MEDS: ATORVASTATIN 20 MG TAB PO SCH (20:43)
[2021-07-23] MEDS: QUEtiapine FUMARATE 50MG TAB PO SCH (20:43)
[2021-07-23] MEDS: RAMELTEON 8 MG TAB (ROZEREM) PO SCH (20:43)
[2021-07-23] MEDS: **NOTE PATIENT COMMENT** MISC XX SCH (20:44)
[2021-07-23] MEDS: CHLORASEPTIC SPRAY MT PRN (20:47)
[2021-07-23] MEDS: amLODIPine 5 MG TAB PO SCH (20:48)
[2021-07-24] MEDS: LEVOTHYROXINE 100MCG TABLET (0.1MG) PO SCH (05:37)
[2021-07-24] MEDS: LEVOTHYROXINE 75MCG TABLET (0.075MG) PO SCH (05:37)
[2021-07-24] MEDS: IPRATROPIUM 0.5MG/ALBUTEROL 2.5MG INH SOL UD 3ML (DUONEB) NEB PRN (05:37)
[2021-07-24 06:00] VITALS: BP 154/70
[2021-07-24 06:36] LABS: BASO # 0.1 10^3/uL (0.0-0.2); BASO % 0.9 % (0.0-1.0); EOS # 0.5 10^3/uL (0.0-0.5); EOS % 6.5 % (0.0-3.0); HEMOGLOBIN 11.8 g/dl (13.5-17.5); LYMPH % 28.3 % (24.0-44.0); MEAN CORPUSCULAR HEMOGLOBIN 28.9 pg (27.0-33.0); MEAN CORPUSCULAR HGB CONC 32.8 g/dl (32.0-36.5); MEAN CORPUSCULAR VOLUME 88.2 fl (80.0-96.0); MONO # 0.5 10^3/uL (0.0-0.8); MONO % 6.8 % (2.0-8.0); NEUTROPHILS % 57.1 % (36.0-66.0); PLATELET COUNT, AUTOMATED 264 10^3/uL (150-450); RED BLOOD COUNT 4.08 10^6/uL (4.30-6.10)
[2021-07-24 06:55] LABS: BLOOD UREA NITROGEN 22 MG/DL (7-18); CALCIUM LEVEL 8.9 MG/DL (8.8-10.2); CARBON DIOXIDE LEVEL 28 MEQ/L (21-32); CHLORIDE LEVEL 106 MEQ/L (98-107); CREATININE FOR GFR 0.97 MG/DL (0.70-1.30); GLOMERULAR FILTRATION RATE > 60.0 (>49); GLUCOSE, FASTING 174 MG/DL (70-100); MAGNESIUM LEVEL 1.9 MG/DL (1.8-2.4); POTASSIUM SERUM 4.1 MEQ/L (3.5-5.1); SODIUM LEVEL 140 MEQ/L (136-145)
[2021-07-24 08:00] VITALS: BP 132/50
[2021-07-24] MEDS: FLUTICASONE PROP 0.05% NASAL SPRAY 16 GM (FLONASE) NARES SCH ×2 (09:00→10:10)
[2021-07-24 10:00] VITALS: BP 132/50
[2021-07-24] MEDS: LEVEMIR (INSULIN DETEMIR) 1 UNITS/0.01ML SC SCH ×2 (10:06→21:48)
[2021-07-24] MEDS: PANTOPRAZOLE 40MG TAB (PROTONIX) PO SCH (10:07)
[2021-07-24] MEDS: MECLIZINE 25 MG TABLET PO SCH ×3 (10:07→21:46)
[2021-07-24] MEDS: MULTIVITAMINS/MINERALS THERAP 1 TAB PO SCH (10:07)
[2021-07-24] MEDS: CLOPIDOGREL 75 MG TAB PO SCH (10:07)
[2021-07-24] MEDS: HumaLOG INSULIN (NovoLOG) PER UNIT SC SCH ×4 (10:07→21:00)
[2021-07-24] MEDS: ASCORBIC ACID 250 MG TAB PO SCH (10:08)
[2021-07-24] MEDS: CETIRIZINE (ZyrTEC) 10 MG TAB PO SCH (10:08)
[2021-07-24] MEDS: DULoxetine 30MG CAPSULE (CYMBALTA) PO SCH (10:08)
[2021-07-24] MEDS: guaiFENesin ER 600 MG TAB PO SCH ×2 (10:08→21:46)
[2021-07-24] MEDS: LURASIDONE HCL 40MG TAB (LATUDA) PO SCH (10:08)
[2021-07-24] MEDS: LIDOCAINE 5% (LIDODERM) PATCH TD SCH (10:09)
[2021-07-24] MEDS: amLODIPine 5 MG TAB PO SCH ×2 (10:12→21:46)
[2021-07-24] MEDS: EZETIMIBE 10MG TABLET (ZETIA) PO SCH (10:18)
[2021-07-24] MEDS: PREGABALIN 50 MG CAP (LYRICA) PO SCH ×3 (10:18→21:46)
[2021-07-24 14:37] LABS: HEMATOCRIT 35.9 % (42.0-52.0); HEMOGLOBIN 11.9 g/dl (13.5-17.5); MEAN CORPUSCULAR HEMOGLOBIN 29.2 pg (27.0-33.0); MEAN CORPUSCULAR HGB CONC 33.1 g/dl (32.0-36.5); PLATELET COUNT, AUTOMATED 281 10^3/uL (150-450); RED BLOOD COUNT 4.08 10^6/uL (4.30-6.10); WHITE BLOOD COUNT 7.8 10^3/uL (4.0-10.0)
[2021-07-24 14:56] LABS: BLOOD UREA NITROGEN 21 MG/DL (7-18); CALCIUM LEVEL 9.2 MG/DL (8.8-10.2); CARBON DIOXIDE LEVEL 30 MEQ/L (21-32); CHLORIDE LEVEL 105 MEQ/L (98-107); CREATININE FOR GFR 1.09 MG/DL (0.70-1.30); GLOMERULAR FILTRATION RATE > 60.0 (>49); GLUCOSE, FASTING 256 MG/DL (70-100); POTASSIUM SERUM 4.6 MEQ/L (3.5-5.1); SODIUM LEVEL 139 MEQ/L (136-145)
[2021-07-24] MEDS: RIVAROXABAN 20 MG TAB (XARELTO) PO SCH (17:54)
[2021-07-24] MEDS: **NOTE PATIENT COMMENT** MISC XX SCH (21:00)
[2021-07-24] MEDS: RAMELTEON 8 MG TAB (ROZEREM) PO SCH (21:46)
[2021-07-24] MEDS: QUEtiapine FUMARATE 50MG TAB PO SCH (21:46)
[2021-07-24] MEDS: ATORVASTATIN 20 MG TAB PO SCH (21:46)
[2021-07-24] MEDS: MORPHINE 30 MG TAB **MSIR PO PRN (21:47)
[2021-07-25 05:41] VITALS: BP 149/73
[2021-07-25] MEDS: LEVOTHYROXINE 75MCG TABLET (0.075MG) PO SCH (05:52)
[2021-07-25] MEDS: LEVOTHYROXINE 100MCG TABLET (0.1MG) PO SCH (05:52)
[2021-07-25 05:57] LABS: BASO # 0.1 10^3/uL (0.0-0.2); EOS # 0.4 10^3/uL (0.0-0.5); EOS % 6.3 % (0.0-3.0); HEMATOCRIT 37.1 % (42.0-52.0); HEMOGLOBIN 12.3 g/dl (13.5-17.5); LYMPH # 1.9 10^3/uL (1.5-5.0); MEAN CORPUSCULAR HEMOGLOBIN 28.7 pg (27.0-33.0); MEAN CORPUSCULAR HGB CONC 33.2 g/dl (32.0-36.5); MEAN CORPUSCULAR VOLUME 86.7 fl (80.0-96.0); MONO # 0.4 10^3/uL (0.0-0.8); MONO % 6.1 % (2.0-8.0); PLATELET COUNT, AUTOMATED 304 10^3/uL (150-450); RED BLOOD COUNT 4.28 10^6/uL (4.30-6.10); WHITE BLOOD COUNT 6.9 10^3/uL (4.0-10.0)
[2021-07-25 06:23] LABS: BLOOD UREA NITROGEN 21 MG/DL (7-18); CALCIUM LEVEL 9.1 MG/DL (8.8-10.2); CARBON DIOXIDE LEVEL 27 MEQ/L (21-32); CHLORIDE LEVEL 105 MEQ/L (98-107); CREATININE FOR GFR 0.94 MG/DL (0.70-1.30); GLOMERULAR FILTRATION RATE > 60.0 (>49); GLUCOSE, FASTING 149 MG/DL (70-100); MAGNESIUM LEVEL 1.9 MG/DL (1.8-2.4); POTASSIUM SERUM 4.5 MEQ/L (3.5-5.1); SODIUM LEVEL 137 MEQ/L (136-145)
[2021-07-25] MEDS: MECLIZINE 25 MG TABLET PO SCH (08:50)
[2021-07-25] MEDS: LIDOCAINE 5% (LIDODERM) PATCH TD SCH (08:50)
[2021-07-25] MEDS: HumaLOG INSULIN (NovoLOG) PER UNIT SC SCH ×4 (08:51→21:09)
[2021-07-25] MEDS: LEVEMIR (INSULIN DETEMIR) 1 UNITS/0.01ML SC SCH ×2 (08:51→21:10)
[2021-07-25] MEDS: MULTIVITAMINS/MINERALS THERAP 1 TAB PO SCH (08:51)
[2021-07-25] MEDS: PREGABALIN 50 MG CAP (LYRICA) PO SCH ×3 (08:52→21:10)
[2021-07-25] MEDS: EZETIMIBE 10MG TABLET (ZETIA) PO SCH (08:52)
[2021-07-25] MEDS: DULoxetine 30MG CAPSULE (CYMBALTA) PO SCH (08:52)
[2021-07-25] MEDS: guaiFENesin ER 600 MG TAB PO SCH ×2 (08:52→21:10)
[2021-07-25] MEDS: CETIRIZINE (ZyrTEC) 10 MG TAB PO SCH (08:52)
[2021-07-25] MEDS: PANTOPRAZOLE 40MG TAB (PROTONIX) PO SCH (08:52)
[2021-07-25] MEDS: CLOPIDOGREL 75 MG TAB PO SCH (08:52)
[2021-07-25] MEDS: ASCORBIC ACID 250 MG TAB PO SCH (08:52)
[2021-07-25] MEDS: LURASIDONE HCL 40MG TAB (LATUDA) PO SCH (08:52)
[2021-07-25] MEDS: amLODIPine 5 MG TAB PO SCH ×2 (08:56→21:11)
[2021-07-25] MEDS: FLUTICASONE PROP 0.05% NASAL SPRAY 16 GM (FLONASE) NARES SCH (08:57)
[2021-07-25] MEDS: RIVAROXABAN 20 MG TAB (XARELTO) PO SCH (17:35)
[2021-07-25] MEDS: ACETAMINOPHEN TAB 650MG DOSE (2X325MG) PO PRN (17:41)
[2021-07-25] MEDS: RAMELTEON 8 MG TAB (ROZEREM) PO SCH (21:10)
[2021-07-25] MEDS: ATORVASTATIN 20 MG TAB PO SCH (21:10)
[2021-07-25] MEDS: QUEtiapine FUMARATE 50MG TAB PO SCH (21:10)
[2021-07-25] MEDS: MORPHINE 30 MG TAB **MSIR PO PRN (21:11)
[2021-07-25] MEDS: **NOTE PATIENT COMMENT** MISC XX SCH (21:12)
[2021-07-25 21:27] VITALS: BP 124/76
[2021-07-26 05:35] VITALS: BP 114/76
[2021-07-26 05:47] LABS: BASO # 0.1 10^3/uL (0.0-0.2); BASO % 0.7 % (0.0-1.0); EOS # 0.6 10^3/uL (0.0-0.5); EOS % 7.5 % (0.0-3.0); HEMOGLOBIN 12.4 g/dl (13.5-17.5); LYMPH % 27.2 % (24.0-44.0); MEAN CORPUSCULAR HEMOGLOBIN 29.2 pg (27.0-33.0); MEAN CORPUSCULAR HGB CONC 33.5 g/dl (32.0-36.5); MEAN CORPUSCULAR VOLUME 87.3 fl (80.0-96.0); MONO # 0.5 10^3/uL (0.0-0.8); NEUTROPHILS # 4.2 10^3/uL (1.5-8.5); NEUTROPHILS % 57.1 % (36.0-66.0); PLATELET COUNT, AUTOMATED 320 10^3/uL (150-450); RED BLOOD COUNT 4.24 10^6/uL (4.30-6.10); WHITE BLOOD COUNT 7.4 10^3/uL (4.0-10.0)
[2021-07-26 06:12] LABS: BLOOD UREA NITROGEN 22 MG/DL (7-18); CARBON DIOXIDE LEVEL 29 MEQ/L (21-32); CHLORIDE LEVEL 104 MEQ/L (98-107); CREATININE FOR GFR 1.03 MG/DL (0.70-1.30); GLOMERULAR FILTRATION RATE > 60.0 (>49); GLUCOSE, FASTING 168 MG/DL (70-100); MAGNESIUM LEVEL 1.8 MG/DL (1.8-2.4); POTASSIUM SERUM 4.2 MEQ/L (3.5-5.1); SODIUM LEVEL 140 MEQ/L (136-145)
[2021-07-26] MEDS: LEVOTHYROXINE 75MCG TABLET (0.075MG) PO SCH (06:22)
[2021-07-26] MEDS: LEVOTHYROXINE 100MCG TABLET (0.1MG) PO SCH (06:22)
[2021-07-26] MEDS: FLUTICASONE PROP 0.05% NASAL SPRAY 16 GM (FLONASE) NARES SCH (09:00)
[2021-07-26] MEDS: MULTIVITAMINS/MINERALS THERAP 1 TAB PO SCH (10:07)
[2021-07-26] MEDS: guaiFENesin ER 600 MG TAB PO SCH ×2 (10:08→21:43)
[2021-07-26] MEDS: LURASIDONE HCL 40MG TAB (LATUDA) PO SCH (10:08)
[2021-07-26] MEDS: CETIRIZINE (ZyrTEC) 10 MG TAB PO SCH (10:08)
[2021-07-26] MEDS: DULoxetine 30MG CAPSULE (CYMBALTA) PO SCH (10:08)
[2021-07-26] MEDS: CLOPIDOGREL 75 MG TAB PO SCH (10:09)
[2021-07-26] MEDS: amLODIPine 5 MG TAB PO SCH ×2 (10:09→21:44)
[2021-07-26] MEDS: ASCORBIC ACID 250 MG TAB PO SCH (10:09)
[2021-07-26] MEDS: PANTOPRAZOLE 40MG TAB (PROTONIX) PO SCH (10:09)
[2021-07-26] MEDS: LIDOCAINE 5% (LIDODERM) PATCH TD SCH (10:10)
[2021-07-26] MEDS: HumaLOG INSULIN (NovoLOG) PER UNIT SC SCH ×4 (10:11→21:43)
[2021-07-26] MEDS: LEVEMIR (INSULIN DETEMIR) 1 UNITS/0.01ML SC SCH ×2 (10:11→21:44)
[2021-07-26] MEDS: EZETIMIBE 10MG TABLET (ZETIA) PO SCH (10:12)
[2021-07-26] MEDS: PREGABALIN 50 MG CAP (LYRICA) PO SCH ×3 (10:22→21:43)
[2021-07-26] MEDS: RIVAROXABAN 20 MG TAB (XARELTO) PO SCH (17:41)
[2021-07-26] MEDS: QUEtiapine FUMARATE 50MG TAB PO SCH (21:42)
[2021-07-26] MEDS: ATORVASTATIN 20 MG TAB PO SCH (21:42)
[2021-07-26] MEDS: RAMELTEON 8 MG TAB (ROZEREM) PO SCH (21:42)
[2021-07-26] MEDS: **NOTE PATIENT COMMENT** MISC XX SCH (21:44)
[2021-07-26] MEDS: MORPHINE 30 MG TAB **MSIR PO PRN (21:45)
[2021-07-27] MEDS: LEVOTHYROXINE 75MCG TABLET (0.075MG) PO SCH (05:40)
[2021-07-27] MEDS: LEVOTHYROXINE 100MCG TABLET (0.1MG) PO SCH (05:40)
[2021-07-27 06:00] VITALS: BP 120/52
[2021-07-27 06:20] LABS: BASO # 0.1 10^3/uL (0.0-0.2); BASO % 0.7 % (0.0-1.0); EOS # 0.5 10^3/uL (0.0-0.5); EOS % 6.3 % (0.0-3.0); HEMATOCRIT 36.9 % (42.0-52.0); HEMOGLOBIN 12.4 g/dl (13.5-17.5); LYMPH # 1.8 10^3/uL (1.5-5.0); LYMPH % 24.1 % (24.0-44.0); MEAN CORPUSCULAR HEMOGLOBIN 28.9 pg (27.0-33.0); MEAN CORPUSCULAR HGB CONC 33.6 g/dl (32.0-36.5); MONO # 0.5 10^3/uL (0.0-0.8); NEUTROPHILS # 4.6 10^3/uL (1.5-8.5); PLATELET COUNT, AUTOMATED 311 10^3/uL (150-450); RED BLOOD COUNT 4.29 10^6/uL (4.30-6.10); WHITE BLOOD COUNT 7.6 10^3/uL (4.0-10.0)
[2021-07-27 06:46] LABS: BLOOD UREA NITROGEN 22 MG/DL (7-18); CALCIUM LEVEL 8.8 MG/DL (8.8-10.2); CARBON DIOXIDE LEVEL 28 MEQ/L (21-32); CHLORIDE LEVEL 107 MEQ/L (98-107); CREATININE FOR GFR 0.99 MG/DL (0.70-1.30); GLOMERULAR FILTRATION RATE > 60.0 (>49); GLUCOSE, FASTING 181 MG/DL (70-100); MAGNESIUM LEVEL 1.7 MG/DL (1.8-2.4); SODIUM LEVEL 139 MEQ/L (136-145)
[2021-07-27] MEDS ORDERED: MAGNESIUM OXIDE 400MG TAB (MAG-OX) PO ONE (07:30)
[2021-07-27] MEDS: FLUTICASONE PROP 0.05% NASAL SPRAY 16 GM (FLONASE) NARES SCH (09:00)
[2021-07-27] MEDS: LIDOCAINE 5% (LIDODERM) PATCH TD SCH (09:18)
[2021-07-27] MEDS: HumaLOG INSULIN (NovoLOG) PER UNIT SC SCH ×4 (09:19→20:09)
[2021-07-27] MEDS: LEVEMIR (INSULIN DETEMIR) 1 UNITS/0.01ML SC SCH ×2 (09:19→20:07)
[2021-07-27] MEDS: DULoxetine 30MG CAPSULE (CYMBALTA) PO SCH (09:20)
[2021-07-27] MEDS: LURASIDONE HCL 40MG TAB (LATUDA) PO SCH (09:20)
[2021-07-27] MEDS: MULTIVITAMINS/MINERALS THERAP 1 TAB PO SCH (09:20)
[2021-07-27] MEDS: EZETIMIBE 10MG TABLET (ZETIA) PO SCH (09:20)
[2021-07-27] MEDS: CLOPIDOGREL 75 MG TAB PO SCH (09:21)
[2021-07-27] MEDS: ASCORBIC ACID 250 MG TAB PO SCH (09:21)
[2021-07-27] MEDS: PREGABALIN 50 MG CAP (LYRICA) PO SCH ×3 (09:21→20:10)
[2021-07-27] MEDS: CETIRIZINE (ZyrTEC) 10 MG TAB PO SCH (09:21)
[2021-07-27] MEDS: PANTOPRAZOLE 40MG TAB (PROTONIX) PO SCH (09:22)
[2021-07-27] MEDS: guaiFENesin ER 600 MG TAB PO SCH ×2 (09:22→20:08)
[2021-07-27] MEDS: amLODIPine 5 MG TAB PO SCH ×2 (09:23→20:08)
[2021-07-27] MEDS: MORPHINE 30 MG TAB **MSIR PO PRN ×2 (09:41→20:18)
[2021-07-27] MEDS: RIVAROXABAN 20 MG TAB (XARELTO) PO SCH (17:10)
[2021-07-27] MEDS: RAMELTEON 8 MG TAB (ROZEREM) PO SCH (20:07)
[2021-07-27] MEDS: **NOTE PATIENT COMMENT** MISC XX SCH (20:09)
[2021-07-27] MEDS: ATORVASTATIN 20 MG TAB PO SCH (20:09)
[2021-07-27] MEDS: QUEtiapine FUMARATE 50MG TAB PO SCH (20:09)
[2021-07-28] MEDS: LEVOTHYROXINE 100MCG TABLET (0.1MG) PO SCH (05:43)
[2021-07-28] MEDS: LEVOTHYROXINE 75MCG TABLET (0.075MG) PO SCH (05:43)
[2021-07-28 05:52] LABS: BASO # 0.1 10^3/uL (0.0-0.2); BASO % 0.8 % (0.0-1.0); EOS # 0.5 10^3/uL (0.0-0.5); EOS % 6.8 % (0.0-3.0); HEMATOCRIT 37.5 % (42.0-52.0); HEMOGLOBIN 12.5 g/dl (13.5-17.5); LYMPH # 1.5 10^3/uL (1.5-5.0); LYMPH % 20.5 % (24.0-44.0); MEAN CORPUSCULAR HEMOGLOBIN 28.9 pg (27.0-33.0); MEAN CORPUSCULAR HGB CONC 33.3 g/dl (32.0-36.5); MEAN CORPUSCULAR VOLUME 86.8 fl (80.0-96.0); MONO # 0.5 10^3/uL (0.0-0.8); MONO % 6.4 % (2.0-8.0); NEUTROPHILS # 4.8 10^3/uL (1.5-8.5); NEUTROPHILS % 64.8 % (36.0-66.0); PLATELET COUNT, AUTOMATED 314 10^3/uL (150-450); RED BLOOD COUNT 4.32 10^6/uL (4.30-6.10); WHITE BLOOD COUNT 7.4 10^3/uL (4.0-10.0)
[2021-07-28 06:23] VITALS: BP 140/66
[2021-07-28 06:29] LABS: BLOOD UREA NITROGEN 20 MG/DL (7-18); CALCIUM LEVEL 8.7 MG/DL (8.8-10.2); CARBON DIOXIDE LEVEL 31 MEQ/L (21-32); CHLORIDE LEVEL 103 MEQ/L (98-107); CREATININE FOR GFR 1.07 MG/DL (0.70-1.30); GLOMERULAR FILTRATION RATE > 60.0 (>49); GLUCOSE, FASTING 228 MG/DL (70-100); POTASSIUM SERUM 4.1 MEQ/L (3.5-5.1); SODIUM LEVEL 138 MEQ/L (136-145)
[2021-07-28] MEDS: FLUTICASONE PROP 0.05% NASAL SPRAY 16 GM (FLONASE) NARES SCH (09:00)
[2021-07-28] MEDS: EZETIMIBE 10MG TABLET (ZETIA) PO SCH (09:17)
[2021-07-28] MEDS: ASCORBIC ACID 250 MG TAB PO SCH (09:17)
[2021-07-28] MEDS: DULoxetine 30MG CAPSULE (CYMBALTA) PO SCH (09:17)
[2021-07-28] MEDS: LURASIDONE HCL 40MG TAB (LATUDA) PO SCH (09:17)
[2021-07-28] MEDS: MULTIVITAMINS/MINERALS THERAP 1 TAB PO SCH (09:17)
[2021-07-28] MEDS: amLODIPine 5 MG TAB PO SCH ×2 (09:18→20:55)
[2021-07-28] MEDS: PANTOPRAZOLE 40MG TAB (PROTONIX) PO SCH (09:18)
[2021-07-28] MEDS: CETIRIZINE (ZyrTEC) 10 MG TAB PO SCH (09:18)
[2021-07-28] MEDS: guaiFENesin ER 600 MG TAB PO SCH ×2 (09:18→20:54)
[2021-07-28] MEDS: PREGABALIN 50 MG CAP (LYRICA) PO SCH ×3 (09:18→20:54)
[2021-07-28] MEDS: CLOPIDOGREL 75 MG TAB PO SCH (09:19)
[2021-07-28] MEDS: LEVEMIR (INSULIN DETEMIR) 1 UNITS/0.01ML SC SCH ×2 (09:20→20:56)
[2021-07-28] MEDS: HumaLOG INSULIN (NovoLOG) PER UNIT SC SCH ×4 (09:20→20:57)
[2021-07-28] MEDS: LIDOCAINE 5% (LIDODERM) PATCH TD SCH (09:21)
[2021-07-28] MEDS: MORPHINE 30 MG TAB **MSIR PO PRN ×2 (09:31→18:05)
[2021-07-28] MEDS: MOM 30ML SUSPENSION UDC PO PRN (13:56)
[2021-07-28 14:12] LABS: HEMATOCRIT 37.2 % (42.0-52.0); HEMOGLOBIN 12.5 g/dl (13.5-17.5); MEAN CORPUSCULAR HGB CONC 33.6 g/dl (32.0-36.5); MEAN CORPUSCULAR VOLUME 86.3 fl (80.0-96.0); PLATELET COUNT, AUTOMATED 306 10^3/uL (150-450); RED BLOOD COUNT 4.31 10^6/uL (4.30-6.10); WHITE BLOOD COUNT 7.4 10^3/uL (4.0-10.0)
[2021-07-28 14:38] LABS: BLOOD UREA NITROGEN 19 MG/DL (7-18); CALCIUM LEVEL 8.9 MG/DL (8.8-10.2); CARBON DIOXIDE LEVEL 29 MEQ/L (21-32); CHLORIDE LEVEL 105 MEQ/L (98-107); GLOMERULAR FILTRATION RATE > 60.0 (>49); GLUCOSE, FASTING 246 MG/DL (70-100); POTASSIUM SERUM 4.4 MEQ/L (3.5-5.1); SODIUM LEVEL 137 MEQ/L (136-145)
[2021-07-28] MEDS: RIVAROXABAN 20 MG TAB (XARELTO) PO SCH (17:22)
[2021-07-28] MEDS: ATORVASTATIN 20 MG TAB PO SCH (20:54)
[2021-07-28] MEDS: QUEtiapine FUMARATE 50MG TAB PO SCH (20:54)
[2021-07-28] MEDS: RAMELTEON 8 MG TAB (ROZEREM) PO SCH (20:56)
[2021-07-28] MEDS: **NOTE PATIENT COMMENT** MISC XX SCH (20:57)
[2021-07-28 22:00] VITALS: BP 93/48
[2021-07-29] MEDS: LEVOTHYROXINE 100MCG TABLET (0.1MG) PO SCH (05:32)
[2021-07-29] MEDS: LEVOTHYROXINE 75MCG TABLET (0.075MG) PO SCH (05:32)
[2021-07-29 06:00] VITALS: BP 159/76
[2021-07-29 06:57] LABS: BASO # 0.1 10^3/uL (0.0-0.2); BASO % 1.1 % (0.0-1.0); EOS # 0.5 10^3/uL (0.0-0.5); EOS % 7.1 % (0.0-3.0); HEMATOCRIT 36.2 % (42.0-52.0); HEMOGLOBIN 12.1 g/dl (13.5-17.5); LYMPH # 1.8 10^3/uL (1.5-5.0); LYMPH % 24.5 % (24.0-44.0); MEAN CORPUSCULAR HEMOGLOBIN 29.2 pg (27.0-33.0); MEAN CORPUSCULAR HGB CONC 33.4 g/dl (32.0-36.5); MEAN CORPUSCULAR VOLUME 87.4 fl (80.0-96.0); MONO # 0.5 10^3/uL (0.0-0.8); MONO % 7.2 % (2.0-8.0); NEUTROPHILS # 4.3 10^3/uL (1.5-8.5); NEUTROPHILS % 59.3 % (36.0-66.0); PLATELET COUNT, AUTOMATED 300 10^3/uL (150-450); RED BLOOD COUNT 4.14 10^6/uL (4.30-6.10); WHITE BLOOD COUNT 7.2 10^3/uL (4.0-10.0)
[2021-07-29 07:17] LABS: BLOOD UREA NITROGEN 19 MG/DL (7-18); CALCIUM LEVEL 8.8 MG/DL (8.8-10.2); CARBON DIOXIDE LEVEL 28 MEQ/L (21-32); CHLORIDE LEVEL 104 MEQ/L (98-107); CREATININE FOR GFR 0.88 MG/DL (0.70-1.30); GLOMERULAR FILTRATION RATE > 60.0 (>49); GLUCOSE, FASTING 183 MG/DL (70-100); MAGNESIUM LEVEL 1.9 MG/DL (1.8-2.4); POTASSIUM SERUM 4.4 MEQ/L (3.5-5.1); SODIUM LEVEL 139 MEQ/L (136-145)
[2021-07-29] MEDS: DULoxetine 30MG CAPSULE (CYMBALTA) PO SCH (08:33)
[2021-07-29] MEDS: EZETIMIBE 10MG TABLET (ZETIA) PO SCH (08:33)
[2021-07-29] MEDS: MOM 30ML SUSPENSION UDC PO PRN (08:33)
[2021-07-29] MEDS: LIDOCAINE 5% (LIDODERM) PATCH TD SCH (08:34)
[2021-07-29] MEDS: HumaLOG INSULIN (NovoLOG) PER UNIT SC SCH ×4 (08:35→20:34)
[2021-07-29] MEDS: SENOKOT S TAB PO PRN (08:36)
[2021-07-29] MEDS: LEVEMIR (INSULIN DETEMIR) 1 UNITS/0.01ML SC SCH ×2 (08:36→20:29)
[2021-07-29] MEDS: amLODIPine 5 MG TAB PO SCH ×2 (08:36→20:31)
[2021-07-29] MEDS: LURASIDONE HCL 40MG TAB (LATUDA) PO SCH (08:36)
[2021-07-29] MEDS: CETIRIZINE (ZyrTEC) 10 MG TAB PO SCH (08:37)
[2021-07-29] MEDS: ASCORBIC ACID 250 MG TAB PO SCH (08:37)
[2021-07-29] MEDS: PANTOPRAZOLE 40MG TAB (PROTONIX) PO SCH (08:37)
[2021-07-29] MEDS: guaiFENesin ER 600 MG TAB PO SCH ×2 (08:37→20:31)
[2021-07-29] MEDS: MULTIVITAMINS/MINERALS THERAP 1 TAB PO SCH (08:37)
[2021-07-29] MEDS: ACETAMINOPHEN TAB 650MG DOSE (2X325MG) PO PRN (08:37)
[2021-07-29] MEDS: PREGABALIN 50 MG CAP (LYRICA) PO SCH ×3 (08:37→20:48)
[2021-07-29] MEDS: CLOPIDOGREL 75 MG TAB PO SCH (08:37)
[2021-07-29] MEDS: FLUTICASONE PROP 0.05% NASAL SPRAY 16 GM (FLONASE) NARES SCH (08:49)
[2021-07-29] MEDS: MORPHINE 30 MG TAB **MSIR PO PRN ×2 (09:47→18:44)
[2021-07-29 14:00] VITALS: BP 148/59
[2021-07-29] MEDS: RIVAROXABAN 20 MG TAB (XARELTO) PO SCH (17:18)
[2021-07-29] MEDS: **NOTE PATIENT COMMENT** MISC XX SCH (20:30)
[2021-07-29] MEDS: RAMELTEON 8 MG TAB (ROZEREM) PO SCH (20:30)
[2021-07-29] MEDS: ATORVASTATIN 20 MG TAB PO SCH (20:31)
[2021-07-29] MEDS: QUEtiapine FUMARATE 50MG TAB PO SCH (20:31)
[2021-07-30] MEDS: LEVOTHYROXINE 100MCG TABLET (0.1MG) PO SCH (05:47)
[2021-07-30] MEDS: LEVOTHYROXINE 75MCG TABLET (0.075MG) PO SCH (05:48)
[2021-07-30 06:20] VITALS: BP 140/92
[2021-07-30] MEDS: HumaLOG INSULIN (NovoLOG) PER UNIT SC SCH ×4 (08:23→19:57)
[2021-07-30] MEDS: ASCORBIC ACID 250 MG TAB PO SCH (08:24)
[2021-07-30] MEDS: LEVEMIR (INSULIN DETEMIR) 1 UNITS/0.01ML SC SCH ×2 (08:24→19:58)
[2021-07-30] MEDS: DULoxetine 30MG CAPSULE (CYMBALTA) PO SCH (08:24)
[2021-07-30] MEDS: LIDOCAINE 5% (LIDODERM) PATCH TD SCH (08:24)
[2021-07-30] MEDS: MULTIVITAMINS/MINERALS THERAP 1 TAB PO SCH (08:24)
[2021-07-30] MEDS: CETIRIZINE (ZyrTEC) 10 MG TAB PO SCH (08:24)
[2021-07-30] MEDS: LURASIDONE HCL 40MG TAB (LATUDA) PO SCH (08:24)
[2021-07-30] MEDS: guaiFENesin ER 600 MG TAB PO SCH ×2 (08:24→19:59)
[2021-07-30] MEDS: PANTOPRAZOLE 40MG TAB (PROTONIX) PO SCH (08:24)
[2021-07-30] MEDS: CLOPIDOGREL 75 MG TAB PO SCH (08:25)
[2021-07-30] MEDS: amLODIPine 5 MG TAB PO SCH ×2 (08:27→19:59)
[2021-07-30] MEDS: FLUTICASONE PROP 0.05% NASAL SPRAY 16 GM (FLONASE) NARES SCH (08:45)
[2021-07-30] MEDS: EZETIMIBE 10MG TABLET (ZETIA) PO SCH (08:45)
[2021-07-30] MEDS: PREGABALIN 50 MG CAP (LYRICA) PO SCH ×3 (08:45→19:59)
[2021-07-30 09:01] LABS: BASO # 0.1 10^3/uL (0.0-0.2); BASO % 0.9 % (0.0-1.0); EOS # 0.5 10^3/uL (0.0-0.5); EOS % 6.1 % (0.0-3.0); HEMATOCRIT 37.2 % (42.0-52.0); HEMOGLOBIN 12.1 g/dl (13.5-17.5); LYMPH # 1.6 10^3/uL (1.5-5.0); LYMPH % 20.2 % (24.0-44.0); MEAN CORPUSCULAR HEMOGLOBIN 28.7 pg (27.0-33.0); MEAN CORPUSCULAR HGB CONC 32.5 g/dl (32.0-36.5); MEAN CORPUSCULAR VOLUME 88.4 fl (80.0-96.0); MONO # 0.5 10^3/uL (0.0-0.8); MONO % 5.7 % (2.0-8.0); NEUTROPHILS # 5.4 10^3/uL (1.5-8.5); NEUTROPHILS % 66.5 % (36.0-66.0); PLATELET COUNT, AUTOMATED 317 10^3/uL (150-450); RED BLOOD COUNT 4.21 10^6/uL (4.30-6.10); WHITE BLOOD COUNT 8.1 10^3/uL (4.0-10.0)
[2021-07-30 09:23] LABS: BLOOD UREA NITROGEN 21 MG/DL (7-18); CALCIUM LEVEL 8.7 MG/DL (8.8-10.2); CARBON DIOXIDE LEVEL 27 MEQ/L (21-32); CHLORIDE LEVEL 102 MEQ/L (98-107); GLOMERULAR FILTRATION RATE > 60.0 (>49); GLUCOSE, FASTING 231 MG/DL (70-100); MAGNESIUM LEVEL 2.1 MG/DL (1.8-2.4); POTASSIUM SERUM 4.6 MEQ/L (3.5-5.1); SODIUM LEVEL 137 MEQ/L (136-145)
[2021-07-30] MEDS: MORPHINE 30 MG TAB **MSIR PO PRN ×2 (12:30→19:57)
[2021-07-30] MEDS: RIVAROXABAN 20 MG TAB (XARELTO) PO SCH (17:27)
[2021-07-30] MEDS: **NOTE PATIENT COMMENT** MISC XX SCH (19:42)
[2021-07-30 19:55] VITALS: BP 150/67
[2021-07-30] MEDS: RAMELTEON 8 MG TAB (ROZEREM) PO SCH (19:58)
[2021-07-30] MEDS: ATORVASTATIN 20 MG TAB PO SCH (19:58)
[2021-07-30] MEDS: QUEtiapine FUMARATE 50MG TAB PO SCH (19:59)
[2021-07-31 05:40] VITALS: BP 156/66
[2021-07-31] MEDS: LEVOTHYROXINE 75MCG TABLET (0.075MG) PO SCH (05:44)
[2021-07-31] MEDS: LEVOTHYROXINE 100MCG TABLET (0.1MG) PO SCH (05:44)
[2021-07-31] MEDS: FLUTICASONE PROP 0.05% NASAL SPRAY 16 GM (FLONASE) NARES SCH (09:00)
[2021-07-31] MEDS: MULTIVITAMINS/MINERALS THERAP 1 TAB PO SCH (09:48)
[2021-07-31] MEDS: PANTOPRAZOLE 40MG TAB (PROTONIX) PO SCH (09:49)
[2021-07-31] MEDS: LIDOCAINE 5% (LIDODERM) PATCH TD SCH (09:49)
[2021-07-31] MEDS: guaiFENesin ER 600 MG TAB PO SCH ×2 (09:49→21:56)
[2021-07-31] MEDS: DULoxetine 30MG CAPSULE (CYMBALTA) PO SCH (09:49)
[2021-07-31] MEDS: LURASIDONE HCL 40MG TAB (LATUDA) PO SCH (09:49)
[2021-07-31] MEDS: ASCORBIC ACID 250 MG TAB PO SCH (09:49)
[2021-07-31] MEDS: CETIRIZINE (ZyrTEC) 10 MG TAB PO SCH (09:49)
[2021-07-31] MEDS: HumaLOG INSULIN (NovoLOG) PER UNIT SC SCH ×4 (09:50→21:57)
[2021-07-31] MEDS: LEVEMIR (INSULIN DETEMIR) 1 UNITS/0.01ML SC SCH ×2 (09:50→21:57)
[2021-07-31] MEDS: CLOPIDOGREL 75 MG TAB PO SCH (09:54)
[2021-07-31] MEDS: PREGABALIN 50 MG CAP (LYRICA) PO SCH ×3 (09:54→21:54)
[2021-07-31] MEDS: amLODIPine 5 MG TAB PO SCH ×2 (09:55→21:55)
[2021-07-31] MEDS: MORPHINE 30 MG TAB **MSIR PO PRN ×2 (09:55→17:08)
[2021-07-31] MEDS: EZETIMIBE 10MG TABLET (ZETIA) PO SCH (09:56)
[2021-07-31 14:51] LABS: HEMATOCRIT 36.5 % (42.0-52.0); HEMOGLOBIN 12.2 g/dl (13.5-17.5); MEAN CORPUSCULAR HEMOGLOBIN 29.2 pg (27.0-33.0); MEAN CORPUSCULAR HGB CONC 33.4 g/dl (32.0-36.5); MEAN CORPUSCULAR VOLUME 87.3 fl (80.0-96.0); PLATELET COUNT, AUTOMATED 299 10^3/uL (150-450); RED BLOOD COUNT 4.18 10^6/uL (4.30-6.10); WHITE BLOOD COUNT 7.9 10^3/uL (4.0-10.0)
[2021-07-31 15:17] LABS: BLOOD UREA NITROGEN 21 MG/DL (7-18); CARBON DIOXIDE LEVEL 27 MEQ/L (21-32); CHLORIDE LEVEL 103 MEQ/L (98-107); CREATININE FOR GFR 0.97 MG/DL (0.70-1.30); GLOMERULAR FILTRATION RATE > 60.0 (>49); GLUCOSE, FASTING 290 MG/DL (70-100); POTASSIUM SERUM 4.5 MEQ/L (3.5-5.1); SODIUM LEVEL 135 MEQ/L (136-145)
[2021-07-31 15:18] LABS: CALCIUM LEVEL 8.9 MG/DL (8.8-10.2)
[2021-07-31] MEDS: RIVAROXABAN 20 MG TAB (XARELTO) PO SCH (17:04)
[2021-07-31] MEDS: ATORVASTATIN 20 MG TAB PO SCH (21:54)
[2021-07-31] MEDS: QUEtiapine FUMARATE 50MG TAB PO SCH (21:55)
[2021-07-31] MEDS: RAMELTEON 8 MG TAB (ROZEREM) PO SCH (21:55)
[2021-07-31] MEDS: **NOTE PATIENT COMMENT** MISC XX SCH (22:26)
[2021-08-01 06:00] VITALS: BP 146/68
[2021-08-01] MEDS: LEVOTHYROXINE 75MCG TABLET (0.075MG) PO SCH (06:31)
[2021-08-01] MEDS: LEVOTHYROXINE 100MCG TABLET (0.1MG) PO SCH (06:31)
[2021-08-01] MEDS: LURASIDONE HCL 40MG TAB (LATUDA) PO SCH (08:33)
[2021-08-01] MEDS: LEVEMIR (INSULIN DETEMIR) 1 UNITS/0.01ML SC SCH ×2 (08:33→20:25)
[2021-08-01] MEDS: PREGABALIN 50 MG CAP (LYRICA) PO SCH ×3 (08:34→20:31)
[2021-08-01] MEDS: ACETAMINOPHEN TAB 650MG DOSE (2X325MG) PO PRN (08:34)
[2021-08-01] MEDS: MULTIVITAMINS/MINERALS THERAP 1 TAB PO SCH (08:34)
[2021-08-01] MEDS: CETIRIZINE (ZyrTEC) 10 MG TAB PO SCH (08:34)
[2021-08-01] MEDS: guaiFENesin ER 600 MG TAB PO SCH ×2 (08:34→20:30)
[2021-08-01] MEDS: DULoxetine 30MG CAPSULE (CYMBALTA) PO SCH (08:34)
[2021-08-01] MEDS: HumaLOG INSULIN (NovoLOG) PER UNIT SC SCH ×4 (08:34→20:30)
[2021-08-01] MEDS: LIDOCAINE 5% (LIDODERM) PATCH TD SCH (08:34)
[2021-08-01] MEDS: PANTOPRAZOLE 40MG TAB (PROTONIX) PO SCH (08:34)
[2021-08-01] MEDS: ASCORBIC ACID 250 MG TAB PO SCH (08:35)
[2021-08-01] MEDS: amLODIPine 5 MG TAB PO SCH ×2 (08:35→20:29)
[2021-08-01] MEDS: EZETIMIBE 10MG TABLET (ZETIA) PO SCH (08:35)
[2021-08-01] MEDS: CLOPIDOGREL 75 MG TAB PO SCH (08:35)
[2021-08-01] MEDS: FLUTICASONE PROP 0.05% NASAL SPRAY 16 GM (FLONASE) NARES SCH (08:40)
[2021-08-01] MEDS: MORPHINE 30 MG TAB **MSIR PO PRN ×3 (08:40→18:04)
[2021-08-01] MEDS: RIVAROXABAN 20 MG TAB (XARELTO) PO SCH (17:16)
[2021-08-01] MEDS: QUEtiapine FUMARATE 50MG TAB PO SCH (20:26)
[2021-08-01] MEDS: ATORVASTATIN 20 MG TAB PO SCH (20:29)
[2021-08-01] MEDS: RAMELTEON 8 MG TAB (ROZEREM) PO SCH (20:30)
[2021-08-01] MEDS: **NOTE PATIENT COMMENT** MISC XX SCH (20:31)
[2021-08-02] MEDS: LEVOTHYROXINE 75MCG TABLET (0.075MG) PO SCH (05:03)
[2021-08-02] MEDS: LEVOTHYROXINE 100MCG TABLET (0.1MG) PO SCH (05:03)
[2021-08-02 06:00] VITALS: BP 137/75
[2021-08-02] MEDS: CLOPIDOGREL 75 MG TAB PO SCH (08:17)
[2021-08-02] MEDS: DULoxetine 30MG CAPSULE (CYMBALTA) PO SCH (08:17)
[2021-08-02] MEDS: guaiFENesin ER 600 MG TAB PO SCH ×2 (08:18→20:27)
[2021-08-02] MEDS: CETIRIZINE (ZyrTEC) 10 MG TAB PO SCH (08:18)
[2021-08-02] MEDS: LIDOCAINE 5% (LIDODERM) PATCH TD SCH (08:18)
[2021-08-02] MEDS: PREGABALIN 50 MG CAP (LYRICA) PO SCH ×3 (08:18→20:27)
[2021-08-02] MEDS: LURASIDONE HCL 40MG TAB (LATUDA) PO SCH (08:18)
[2021-08-02] MEDS: amLODIPine 5 MG TAB PO SCH ×2 (08:18→20:26)
[2021-08-02] MEDS: ASCORBIC ACID 250 MG TAB PO SCH (08:18)
[2021-08-02] MEDS: PANTOPRAZOLE 40MG TAB (PROTONIX) PO SCH (08:18)
[2021-08-02] MEDS: MULTIVITAMINS/MINERALS THERAP 1 TAB PO SCH (08:18)
[2021-08-02] MEDS: EZETIMIBE 10MG TABLET (ZETIA) PO SCH (08:18)
[2021-08-02] MEDS: LEVEMIR (INSULIN DETEMIR) 1 UNITS/0.01ML SC SCH ×2 (08:19→20:26)
[2021-08-02] MEDS: HumaLOG INSULIN (NovoLOG) PER UNIT SC SCH ×4 (08:19→20:27)
[2021-08-02] MEDS: FLUTICASONE PROP 0.05% NASAL SPRAY 16 GM (FLONASE) NARES SCH (08:19)
[2021-08-02] MEDS: MORPHINE 30 MG TAB **MSIR PO PRN ×3 (11:39→21:43)
[2021-08-02] MEDS: RIVAROXABAN 20 MG TAB (XARELTO) PO SCH (17:38)
[2021-08-02] MEDS: QUEtiapine FUMARATE 50MG TAB PO SCH (20:26)
[2021-08-02] MEDS: **NOTE PATIENT COMMENT** MISC XX SCH (20:26)
[2021-08-02] MEDS: ATORVASTATIN 20 MG TAB PO SCH (20:27)
[2021-08-02] MEDS: RAMELTEON 8 MG TAB (ROZEREM) PO SCH (20:27)
[2021-08-03 06:00] VITALS: BP 140/73
[2021-08-03] MEDS: LEVOTHYROXINE 100MCG TABLET (0.1MG) PO SCH (06:15)
[2021-08-03] MEDS: LEVOTHYROXINE 75MCG TABLET (0.075MG) PO SCH (06:15)
[2021-08-03] MEDS: PREGABALIN 50 MG CAP (LYRICA) PO SCH ×3 (08:32→20:20)
[2021-08-03] MEDS: HumaLOG INSULIN (NovoLOG) PER UNIT SC SCH ×5 (08:33→20:22)
[2021-08-03] MEDS: EZETIMIBE 10MG TABLET (ZETIA) PO SCH (08:33)
[2021-08-03] MEDS: MORPHINE 30 MG TAB **MSIR PO PRN ×3 (08:33→22:06)
[2021-08-03] MEDS: LIDOCAINE 5% (LIDODERM) PATCH TD SCH (08:34)
[2021-08-03] MEDS: PANTOPRAZOLE 40MG TAB (PROTONIX) PO SCH (08:34)
[2021-08-03] MEDS: guaiFENesin ER 600 MG TAB PO SCH ×2 (08:34→20:20)
[2021-08-03] MEDS: LEVEMIR (INSULIN DETEMIR) 1 UNITS/0.01ML SC SCH ×2 (08:34→20:19)
[2021-08-03] MEDS: CETIRIZINE (ZyrTEC) 10 MG TAB PO SCH (08:34)
[2021-08-03] MEDS: DULoxetine 30MG CAPSULE (CYMBALTA) PO SCH (08:34)
[2021-08-03] MEDS: LURASIDONE HCL 40MG TAB (LATUDA) PO SCH (08:34)
[2021-08-03] MEDS: MULTIVITAMINS/MINERALS THERAP 1 TAB PO SCH (08:34)
[2021-08-03] MEDS: CLOPIDOGREL 75 MG TAB PO SCH (08:35)
[2021-08-03] MEDS: ASCORBIC ACID 250 MG TAB PO SCH (08:35)
[2021-08-03] MEDS: amLODIPine 5 MG TAB PO SCH ×2 (08:35→20:21)
[2021-08-03] MEDS: FLUTICASONE PROP 0.05% NASAL SPRAY 16 GM (FLONASE) NARES SCH (08:35)
[2021-08-03] MEDS: MOM 30ML SUSPENSION UDC PO PRN ×2 (15:56→20:30)
[2021-08-03] MEDS: RIVAROXABAN 20 MG TAB (XARELTO) PO SCH (17:11)
[2021-08-03] MEDS: QUEtiapine FUMARATE 50MG TAB PO SCH (20:20)
[2021-08-03] MEDS: RAMELTEON 8 MG TAB (ROZEREM) PO SCH (20:20)
[2021-08-03] MEDS: ATORVASTATIN 20 MG TAB PO SCH (20:21)
[2021-08-03] MEDS: **NOTE PATIENT COMMENT** MISC XX SCH (21:17)
[2021-08-04] MEDS: LEVOTHYROXINE 100MCG TABLET (0.1MG) PO SCH (05:03)
[2021-08-04] MEDS: LEVOTHYROXINE 75MCG TABLET (0.075MG) PO SCH (05:03)
[2021-08-04] MEDS: MORPHINE 30 MG TAB **MSIR PO PRN ×3 (05:56→21:19)
[2021-08-04] MEDS: MOM 30ML SUSPENSION UDC PO PRN (05:56)
[2021-08-04 06:00] VITALS: BP 150/73
[2021-08-04] MEDS: guaiFENesin ER 600 MG TAB PO SCH ×2 (08:57→21:20)
[2021-08-04] MEDS: CLOPIDOGREL 75 MG TAB PO SCH (08:57)
[2021-08-04] MEDS: DULoxetine 30MG CAPSULE (CYMBALTA) PO SCH (08:57)
[2021-08-04] MEDS: PANTOPRAZOLE 40MG TAB (PROTONIX) PO SCH (08:57)
[2021-08-04] MEDS: CETIRIZINE (ZyrTEC) 10 MG TAB PO SCH (08:57)
[2021-08-04] MEDS: MULTIVITAMINS/MINERALS THERAP 1 TAB PO SCH (08:57)
[2021-08-04] MEDS: PREGABALIN 50 MG CAP (LYRICA) PO SCH ×3 (08:57→21:19)
[2021-08-04] MEDS: ASCORBIC ACID 250 MG TAB PO SCH (08:57)
[2021-08-04] MEDS: LURASIDONE HCL 40MG TAB (LATUDA) PO SCH (08:57)
[2021-08-04] MEDS: LIDOCAINE 5% (LIDODERM) PATCH TD SCH (08:57)
[2021-08-04] MEDS: EZETIMIBE 10MG TABLET (ZETIA) PO SCH (08:57)
[2021-08-04] MEDS: HumaLOG INSULIN (NovoLOG) PER UNIT SC SCH ×4 (08:58→21:21)
[2021-08-04] MEDS: LEVEMIR (INSULIN DETEMIR) 1 UNITS/0.01ML SC SCH ×2 (08:58→21:21)
[2021-08-04] MEDS: amLODIPine 5 MG TAB PO SCH ×2 (08:59→21:20)
[2021-08-04] MEDS: FLUTICASONE PROP 0.05% NASAL SPRAY 16 GM (FLONASE) NARES SCH ×2 (08:59→09:00)
[2021-08-04 13:49] LABS: HEMOGLOBIN 12.4 g/dl (13.5-17.5); MEAN CORPUSCULAR HEMOGLOBIN 29.2 pg (27.0-33.0); MEAN CORPUSCULAR HGB CONC 33.5 g/dl (32.0-36.5); MEAN CORPUSCULAR VOLUME 87.3 fl (80.0-96.0); PLATELET COUNT, AUTOMATED 296 10^3/uL (150-450); RED BLOOD COUNT 4.24 10^6/uL (4.30-6.10); WHITE BLOOD COUNT 6.7 10^3/uL (4.0-10.0)
[2021-08-04 14:16] LABS: BLOOD UREA NITROGEN 24 MG/DL (7-18); CARBON DIOXIDE LEVEL 31 MEQ/L (21-32); CHLORIDE LEVEL 101 MEQ/L (98-107); GLOMERULAR FILTRATION RATE > 60.0 (>49); GLUCOSE, FASTING 291 MG/DL (70-100); POTASSIUM SERUM 4.5 MEQ/L (3.5-5.1); SODIUM LEVEL 138 MEQ/L (136-145)
[2021-08-04 14:17] LABS: CALCIUM LEVEL 9.4 MG/DL (8.8-10.2)
[2021-08-04] MEDS: RIVAROXABAN 20 MG TAB (XARELTO) PO SCH (17:28)
[2021-08-04] MEDS: **NOTE PATIENT COMMENT** MISC XX SCH (21:00)
[2021-08-04] MEDS: RAMELTEON 8 MG TAB (ROZEREM) PO SCH (21:19)
[2021-08-04] MEDS: QUEtiapine FUMARATE 50MG TAB PO SCH (21:20)
[2021-08-04] MEDS: ATORVASTATIN 20 MG TAB PO SCH (21:20)
[2021-08-05 05:00] VITALS: BP 154/57
[2021-08-05] MEDS: MORPHINE 30 MG TAB **MSIR PO PRN ×2 (05:13→12:30)
[2021-08-05] MEDS: LEVOTHYROXINE 75MCG TABLET (0.075MG) PO SCH (05:13)
[2021-08-05] MEDS: LEVOTHYROXINE 100MCG TABLET (0.1MG) PO SCH (05:13)
[2021-08-05] MEDS: LIDOCAINE 5% (LIDODERM) PATCH TD SCH (08:15)
[2021-08-05] MEDS: DULoxetine 30MG CAPSULE (CYMBALTA) PO SCH (08:16)
[2021-08-05] MEDS: LEVEMIR (INSULIN DETEMIR) 1 UNITS/0.01ML SC SCH (08:16)
[2021-08-05] MEDS: MULTIVITAMINS/MINERALS THERAP 1 TAB PO SCH (08:16)
[2021-08-05] MEDS: PANTOPRAZOLE 40MG TAB (PROTONIX) PO SCH (08:16)
[2021-08-05] MEDS: HumaLOG INSULIN (NovoLOG) PER UNIT SC SCH ×2 (08:16→12:19)
[2021-08-05] MEDS: EZETIMIBE 10MG TABLET (ZETIA) PO SCH (08:16)
[2021-08-05] MEDS: LURASIDONE HCL 40MG TAB (LATUDA) PO SCH (08:16)
[2021-08-05 08:17] VITALS: BP 154/57
[2021-08-05] MEDS: ASCORBIC ACID 250 MG TAB PO SCH (08:17)
[2021-08-05] MEDS: amLODIPine 5 MG TAB PO SCH (08:17)
[2021-08-05] MEDS: PREGABALIN 50 MG CAP (LYRICA) PO SCH (08:17)
[2021-08-05] MEDS: FLUTICASONE PROP 0.05% NASAL SPRAY 16 GM (FLONASE) NARES SCH (08:17)
[2021-08-05] MEDS: CETIRIZINE (ZyrTEC) 10 MG TAB PO SCH (08:17)
[2021-08-05] MEDS: CLOPIDOGREL 75 MG TAB PO SCH (08:17)
[2021-08-05] MEDS: guaiFENesin ER 600 MG TAB PO SCH (08:17)
[2021-08-05] MEDS ORDERED: AMLO1TAB24 PO (12:44)
[2021-08-05] MEDS ORDERED: MSIR30TA PO (14:01)
== END 2021-08-05 14:26 | disposition home health service (06) | DRG 641 ==
LOC: EDBD 13:16 → M ED 13:16 → M ED INP 13:17 → ENRESERV 07-04 14:38 → M MSPAV 07-04 17:02 → OBSVTOIN 07-07 13:38
PROVIDERS: ADMIT Internal Medicine; ATTEND Internal Medicine
DX: E87.6 Hypokalemia (principal); I10 Essential (primary) hypertension; E03.9 Hypothyroidism, unspecified; E11.9 Type 2 diabetes mellitus without complications; E78.5 Hyperlipidemia, unspecified; I25.10 Atherosclerotic heart disease of native coronary artery without angina pectoris; N40.0 Benign prostatic hyperplasia without lower urinary tract symptoms; K21.9 Gastro-esophageal reflux disease without esophagitis; M54.10 Radiculopathy, site unspecified; L93.0 Discoid lupus erythematosus; Z79.01 Long term (current) use of anticoagulants; Z86.718 Personal history of other venous thrombosis and embolism; Z86.711 Personal history of pulmonary embolism; F41.9 Anxiety disorder, unspecified; F32.A Depression, unspecified; I71.4 Abdominal aortic aneurysm, without rupture; E66.01 Morbid (severe) obesity due to excess calories; I95.1 Orthostatic hypotension; G47.00 Insomnia, unspecified; Z79.4 Long term (current) use of insulin; Z79.899 Other long term (current) drug therapy; Z91.013 Allergy to seafood; Z88.0 Allergy status to penicillin; Z88.2 Allergy status to sulfonamides; Z88.6 Allergy status to analgesic agent; Z88.8 Allergy status to other drugs, medicaments and biological substances; I25.2 Old myocardial infarction; Z95.2 Presence of prosthetic heart valve

== ENCOUNTER 2021-11-29 01:15 | Inpatient (IN) | payer OTHER, MEDICARE ==
[~2021-11-29] VITALS: Ht 170.2 cm; Wt 120.8 kg
[~2021-11-29 01:15] MED LIST changes: +AMLO1TAB24 PO; +CYMB60CA4 PO; +EUCE1CRE2 TOP; +EZET10TA21 PO; +FLOM0.4C39 PO; +FLUT15.820 NARES; +LEVO175T2 PO; +MELA3TAB30 PO; +MSIR30TA PO; +QUET50TA4 PO; +TIZA4CAP PO; +VITA250T4 PO; +XARE20TA PO
[2021-11-29 01:58] LABS: BASO # 0.1 10^3/uL (0.0-0.2); BASO % 0.5 % (0.0-1.0); EOS # 0.3 10^3/uL (0.0-0.5); HEMATOCRIT 35.9 % (42.0-52.0); HEMOGLOBIN 11.7 g/dl (13.5-17.5); MEAN CORPUSCULAR HEMOGLOBIN 29.3 pg (27.0-33.0); MEAN CORPUSCULAR HGB CONC 32.6 g/dl (32.0-36.5); MONO # 0.6 10^3/uL (0.0-0.8); MONO % 5.4 % (2.0-8.0); NEUTROPHILS # 8.7 10^3/uL (1.5-8.5); NEUTROPHILS % 81.2 % (36.0-66.0); PLATELET COUNT, AUTOMATED 331 10^3/uL (150-450); RED BLOOD COUNT 3.99 10^6/uL (4.30-6.10); WHITE BLOOD COUNT 10.7 10^3/uL (4.0-10.0)
[2021-11-29 02:09] LABS: INR 1.19; PARTIAL THROMBOPLASTIN TIME 29.2 SECONDS (25.9-37.0); PROTHROMBIN TIME 15.5 SECONDS (12.7-14.5)
[2021-11-29 02:36] LABS: ALBUMIN 3.2 GM/DL (3.2-5.2); ALT/SGPT 23 U/L (12-78); BILIRUBIN,TOTAL 0.5 MG/DL (0.2-1.0); BLOOD UREA NITROGEN 34 MG/DL (7-18); CALCIUM LEVEL 8.8 MG/DL (8.8-10.2); CARBON DIOXIDE LEVEL 22 MEQ/L (21-32); CHLORIDE LEVEL 110 MEQ/L (98-107); CREATININE FOR GFR 1.54 MG/DL (0.70-1.30); GLOMERULAR FILTRATION RATE 48.7 (>49); GLUCOSE, FASTING 217 MG/DL (70-100); POTASSIUM SERUM 5.5 MEQ/L (3.5-5.1); SODIUM LEVEL 141 MEQ/L (136-145)
[2021-11-29] MEDS ORDERED: NS 1,000 ML IV ONE (03:25)
[2021-11-29] MEDS ORDERED: DEXTROSE 50% 50 ML SYRINGE IV PRN (04:20)
[2021-11-29] MEDS ORDERED: GLUCOSE 4GM CHEW TABLET PO PRN (04:20)
[2021-11-29] MEDS ORDERED: GLUCAGON INJ 1MG VIAL SC PRN (04:20)
[2021-11-29] MEDS ORDERED: SEMA1PEN2 SQ (04:46)
[2021-11-29] MEDS ORDERED: LEVO200T4 PO (04:49)
[2021-11-29] MEDS ORDERED: LATU120T PO (04:49)
[2021-11-29] MEDS ORDERED: AMLO1TAB24 PO (04:49)
[2021-11-29] MEDS ORDERED: ACET-683 PO (04:52)
[2021-11-29] MEDS ORDERED: BENZ-52 PO (04:52)
[2021-11-29] MEDS ORDERED: POTA10TA17 PO (04:52)
[2021-11-29] MEDS ORDERED: FURO20TA2 PO (04:52)
[2021-11-29] MEDS ORDERED: HOME MED LIST COMPLETE! XX SCH (04:55)
[2021-11-29] MEDS ORDERED: NS 1,000 ML IV SCH ×3 (05:00→10:45)
[2021-11-29 05:06] LABS: APPEARANCE, URINE HAZY (CLEAR); BACTERIA, URINE AUTO NEGATIVE (NEGATIVE); BILIRUBIN, URINE AUTO NEGATIVE (NEGATIVE); BLOOD, URINE BLOOD NEGATIVE (NEGATIVE); COLOR, URINE YELLOW (YELLOW); GLUCOSE, URINE (UA) AUTO 1+ mg/dL (NEGATIVE); KETONE, URINE AUTO NEGATIVE (NEGATIVE); LEUKOCYTE ESTERASE, URINE AUTO NEGATIVE (NEGATIVE); MUCUS, URINE SMALL (NEGATIVE); NITRITE, URINE AUTO NEGATIVE (NEGATIVE); PROTEIN, URINE AUTO 3+ mg/dL (NEGATIVE); RBC, URINE AUTO 2 /HPF (0-3); SPECIFIC GRAVITY URINE AUTO 1.016 (1.002-1.035); SQUAMOUS EPITHELIAL CELL UR AU 0 /HPF (0-6); UROBILINOGEN, URINE AUTO 0.2 mg/dL (0.0-2.0); WBC, URINE AUTO 2 /HPF (0-3)
[2021-11-29] MEDS ORDERED: NITROGLYCERIN 0.4 MG SUBL TABLET SL PRN (05:15)
[2021-11-29 05:33] LABS: RSV AMPLIFICATION NEGATIVE (NEGATIVE)
[2021-11-29 05:33] LABS: AMPHETAMINES LEVEL URINE NEGATIVE (NEGATIVE); BARBITURATES URINE NEGATIVE (NEGATIVE); BENZODIAZEPINES URINE NEGATIVE (NEGATIVE); CANNABINOIDS URINE NEGATIVE (NEGATIVE); COCAINE METABOLITE URINE NEGATIVE (NEGATIVE); METHADONE URINE NEGATIVE (NEGATIVE); OPIATES URINE NEGATIVE (NEGATIVE); PHENCYCLIDINE URINE NEGATIVE (NEGATIVE)
[2021-11-29 05:44] LABS: ETHYL ALCOHOL (ETHANOL) < 0.003 % (0.000-0.010)
[2021-11-29] MEDS: LEVOTHYROXINE 100MCG TABLET (0.1MG) PO SCH (06:16)
[2021-11-29 07:34] LABS: BASO # 0.1 10^3/uL (0.0-0.2); BASO % 0.5 % (0.0-1.0); EOS # 0.2 10^3/uL (0.0-0.5); HEMATOCRIT 33.4 % (42.0-52.0); HEMOGLOBIN 10.9 g/dl (13.5-17.5); LYMPH % 9.5 % (24.0-44.0); MEAN CORPUSCULAR HEMOGLOBIN 29.7 pg (27.0-33.0); MEAN CORPUSCULAR HGB CONC 32.6 g/dl (32.0-36.5); MONO # 0.7 10^3/uL (0.0-0.8); MONO % 6.3 % (2.0-8.0); NEUTROPHILS # 8.4 10^3/uL (1.5-8.5); NEUTROPHILS % 81.1 % (36.0-66.0); PLATELET COUNT, AUTOMATED 292 10^3/uL (150-450); RED BLOOD COUNT 3.67 10^6/uL (4.30-6.10); WHITE BLOOD COUNT 10.3 10^3/uL (4.0-10.0)
[2021-11-29] MEDS: INSULIN LISPRO (NovoLOG) PER UNIT SC SCH ×3 (08:00→18:29)
[2021-11-29 08:06] LABS: ALBUMIN 3.1 GM/DL (3.2-5.2); BILIRUBIN,TOTAL 0.4 MG/DL (0.2-1.0); CALCIUM LEVEL 8.9 MG/DL (8.8-10.2); CREATININE FOR GFR 1.34 MG/DL (0.70-1.30); GLOMERULAR FILTRATION RATE 57.1 (>49); MAGNESIUM LEVEL 2.1 MG/DL (1.8-2.4); PHOSPHORUS LEVEL 2.6 MG/DL (2.5-4.9); POTASSIUM SERUM 4.2 MEQ/L (3.5-5.1); TOTAL PROTEIN 6.9 GM/DL (6.4-8.2)
[2021-11-29] MEDS: LEVEMIR (INSULIN DETEMIR) 1 UNITS/0.01ML SC SCH ×2 (09:00→20:39)
[2021-11-29] MEDS ORDERED: FUROSEMIDE 20 MG TAB PO SCH (09:00)
[2021-11-29] MEDS: CLOPIDOGREL 75 MG TAB PO SCH (10:48)
[2021-11-29] MEDS: EZETIMIBE 10MG TABLET (ZETIA) PO SCH (10:48)
[2021-11-29] MEDS: amLODIPine 5 MG TAB PO SCH ×2 (10:49→20:38)
[2021-11-29] MEDS: PANTOPRAZOLE 40MG TAB (PROTONIX) PO SCH (10:50)
[2021-11-29 14:09] VITALS: BP 171/71
[2021-11-29 15:38] VITALS: BP 196/78
[2021-11-29] MEDS: RIVAROXABAN 20MG TAB (XARELTO) PO SCH (18:29)
[2021-11-29 20:00] VITALS: BP 165/72
[2021-11-29] MEDS: ATORVASTATIN 20 MG TAB PO SCH (20:38)
[2021-11-30] VITALS (11 sets, daily range): BP systolic 141–180; BP diastolic 50–82
[2021-11-30] MEDS ORDERED: METOPROLOL TART 25 MG TABLET PO ONE
[2021-11-30 05:21] LABS: BASO % 0.5 % (0.0-1.0); EOS # 0.5 10^3/uL (0.0-0.5); EOS % 5.6 % (0.0-3.0); HEMATOCRIT 31.9 % (42.0-52.0); LYMPH # 1.3 10^3/uL (1.5-5.0); LYMPH % 15.1 % (24.0-44.0); MEAN CORPUSCULAR HEMOGLOBIN 28.8 pg (27.0-33.0); MEAN CORPUSCULAR HGB CONC 31.3 g/dl (32.0-36.5); MEAN CORPUSCULAR VOLUME 91.9 fl (80.0-96.0); MONO # 0.7 10^3/uL (0.0-0.8); MONO % 8.6 % (2.0-8.0); NEUTROPHILS # 5.9 10^3/uL (1.5-8.5); NEUTROPHILS % 69.8 % (36.0-66.0); PLATELET COUNT, AUTOMATED 299 10^3/uL (150-450); RED BLOOD COUNT 3.47 10^6/uL (4.30-6.10); WHITE BLOOD COUNT 8.5 10^3/uL (4.0-10.0)
[2021-11-30] MEDS: LEVOTHYROXINE 100MCG TABLET (0.1MG) PO SCH (05:43)
[2021-11-30 05:47] LABS: ALBUMIN 2.8 GM/DL (3.2-5.2); ALT/SGPT 19 U/L (12-78); BILIRUBIN,TOTAL 0.7 MG/DL (0.2-1.0); BLOOD UREA NITROGEN 22 MG/DL (7-18); CALCIUM LEVEL 8.5 MG/DL (8.8-10.2); CARBON DIOXIDE LEVEL 28 MEQ/L (21-32); CHLORIDE LEVEL 108 MEQ/L (98-107); CREATININE FOR GFR 1.24 MG/DL (0.70-1.30); GLOMERULAR FILTRATION RATE > 60.0 (>49); GLUCOSE, FASTING 135 MG/DL (70-100); MAGNESIUM LEVEL 2.1 MG/DL (1.8-2.4); SODIUM LEVEL 141 MEQ/L (136-145); TOTAL PROTEIN 6.5 GM/DL (6.4-8.2)
[2021-11-30] MEDS: LEVEMIR (INSULIN DETEMIR) 1 UNITS/0.01ML SC SCH ×2 (09:20→20:36)
[2021-11-30] MEDS: INSULIN LISPRO (NovoLOG) PER UNIT SC SCH ×3 (09:20→18:51)
[2021-11-30] MEDS: PREGABALIN 50 MG CAP (LYRICA) PO SCH ×2 (09:20→20:24)
[2021-11-30] MEDS: PANTOPRAZOLE 40MG TAB (PROTONIX) PO SCH (09:20)
[2021-11-30] MEDS: EZETIMIBE 10MG TABLET (ZETIA) PO SCH (09:21)
[2021-11-30] MEDS: traMADol 50 MG TAB PO PRN ×2 (09:21→15:02)
[2021-11-30] MEDS: amLODIPine 5 MG TAB PO SCH ×2 (09:22→20:27)
[2021-11-30] MEDS: SENOKOT S TAB PO SCH ×2 (09:22→20:24)
[2021-11-30] MEDS: BENZTROPINE 1 MG TAB PO SCH ×3 (09:22→20:24)
[2021-11-30] MEDS: METOPROLOL TART 25 MG TABLET PO SCH (09:22)
[2021-11-30] MEDS: DULoxetine 30MG CAPSULE (CYMBALTA) PO SCH (09:22)
[2021-11-30] MEDS: CLOPIDOGREL 75 MG TAB PO SCH (09:22)
[2021-11-30] MEDS: RIVAROXABAN 20MG TAB (XARELTO) PO SCH (18:51)
[2021-11-30] MEDS: ATORVASTATIN 20 MG TAB PO SCH (20:24)
[2021-12-01 00:16] VITALS: BP_SYST 159; BP_SYST 164; BP_DIAS 67; BP_DIAS 70
[2021-12-01] MEDS ORDERED: NS 1,000 ML IV SCH (01:20)
[2021-12-01 05:57] LABS: BASO # 0.1 10^3/uL (0.0-0.2); BASO % 0.6 % (0.0-1.0); EOS # 0.4 10^3/uL (0.0-0.5); EOS % 5.3 % (0.0-3.0); HEMATOCRIT 32.9 % (42.0-52.0); HEMOGLOBIN 10.2 g/dl (13.5-17.5); LYMPH # 1.2 10^3/uL (1.5-5.0); LYMPH % 14.4 % (24.0-44.0); MEAN CORPUSCULAR HEMOGLOBIN 28.6 pg (27.0-33.0); MEAN CORPUSCULAR VOLUME 92.2 fl (80.0-96.0); MONO # 0.6 10^3/uL (0.0-0.8); NEUTROPHILS % 72.2 % (36.0-66.0); PLATELET COUNT, AUTOMATED 284 10^3/uL (150-450); RED BLOOD COUNT 3.57 10^6/uL (4.30-6.10); WHITE BLOOD COUNT 8.3 10^3/uL (4.0-10.0)
[2021-12-01 06:00] VITALS: BP 164/62
[2021-12-01 06:20] LABS: ALBUMIN 2.9 GM/DL (3.2-5.2); ALT/SGPT 21 U/L (12-78); BILIRUBIN,TOTAL 0.7 MG/DL (0.2-1.0); BLOOD UREA NITROGEN 22 MG/DL (7-18); CALCIUM LEVEL 8.7 MG/DL (8.8-10.2); CARBON DIOXIDE LEVEL 27 MEQ/L (21-32); CHLORIDE LEVEL 108 MEQ/L (98-107); CREATININE FOR GFR 1.21 MG/DL (0.70-1.30); GLOMERULAR FILTRATION RATE > 60.0 (>49); GLUCOSE, FASTING 146 MG/DL (70-100); MAGNESIUM LEVEL 1.8 MG/DL (1.8-2.4); POTASSIUM SERUM 3.9 MEQ/L (3.5-5.1); SODIUM LEVEL 141 MEQ/L (136-145); TOTAL PROTEIN 6.2 GM/DL (6.4-8.2)
[2021-12-01] MEDS: LEVOTHYROXINE 100MCG TABLET (0.1MG) PO SCH (06:30)
[2021-12-01] MEDS: PANTOPRAZOLE 40MG TAB (PROTONIX) PO SCH (08:07)
[2021-12-01] MEDS: BENZTROPINE 1 MG TAB PO SCH ×3 (08:07→20:19)
[2021-12-01] MEDS: traMADol 50 MG TAB PO PRN ×3 (08:07→23:35)
[2021-12-01] MEDS: amLODIPine 5 MG TAB PO SCH ×2 (08:08→20:20)
[2021-12-01] MEDS: EZETIMIBE 10MG TABLET (ZETIA) PO SCH (08:08)
[2021-12-01] MEDS: METOPROLOL TART 25 MG TABLET PO SCH (08:08)
[2021-12-01] MEDS: DULoxetine 30MG CAPSULE (CYMBALTA) PO SCH (08:08)
[2021-12-01] MEDS: SENOKOT S TAB PO SCH ×2 (08:08→20:19)
[2021-12-01] MEDS: CLOPIDOGREL 75 MG TAB PO SCH (08:08)
[2021-12-01] MEDS: PREGABALIN 50 MG CAP (LYRICA) PO SCH ×2 (08:08→20:22)
[2021-12-01] MEDS: INSULIN LISPRO (NovoLOG) PER UNIT SC SCH ×3 (08:09→17:42)
[2021-12-01] MEDS: LEVEMIR (INSULIN DETEMIR) 1 UNITS/0.01ML SC SCH ×2 (08:09→20:20)
[2021-12-01] MEDS: MIRALAX *UNIT DOSE* 17GM PACKET PO PRN (12:16)
[2021-12-01 14:00] VITALS: BP_SYST 154; BP_SYST 159; BP_DIAS 62; BP_DIAS 68
[2021-12-01] MEDS: ATORVASTATIN 20 MG TAB PO SCH (20:19)
[2021-12-01 21:45] VITALS: BP_SYST 122; BP_SYST 142; BP_DIAS 70; BP_DIAS 77
[2021-12-01 22:00] VITALS: BP 142/77
[2021-12-02] MEDS: LEVOTHYROXINE 100MCG TABLET (0.1MG) PO SCH (05:34)
[2021-12-02 06:00] VITALS: BP 143/71
[2021-12-02 06:15] LABS: BASO % 0.6 % (0.0-1.0); EOS # 0.4 10^3/uL (0.0-0.5); EOS % 5.8 % (0.0-3.0); HEMATOCRIT 31.2 % (42.0-52.0); HEMOGLOBIN 10.2 g/dl (13.5-17.5); LYMPH # 1.2 10^3/uL (1.5-5.0); LYMPH % 17.4 % (24.0-44.0); MEAN CORPUSCULAR HEMOGLOBIN 29.4 pg (27.0-33.0); MEAN CORPUSCULAR HGB CONC 32.7 g/dl (32.0-36.5); MEAN CORPUSCULAR VOLUME 89.9 fl (80.0-96.0); MONO # 0.5 10^3/uL (0.0-0.8); MONO % 6.8 % (2.0-8.0); NEUTROPHILS # 4.6 10^3/uL (1.5-8.5); PLATELET COUNT, AUTOMATED 295 10^3/uL (150-450); RED BLOOD COUNT 3.47 10^6/uL (4.30-6.10); WHITE BLOOD COUNT 6.7 10^3/uL (4.0-10.0)
[2021-12-02 06:39] LABS: ALBUMIN 2.8 GM/DL (3.2-5.2); ALT/SGPT 22 U/L (12-78); BILIRUBIN,TOTAL 0.7 MG/DL (0.2-1.0); BLOOD UREA NITROGEN 19 MG/DL (7-18); CALCIUM LEVEL 9.1 MG/DL (8.8-10.2); CARBON DIOXIDE LEVEL 29 MEQ/L (21-32); CHLORIDE LEVEL 106 MEQ/L (98-107); GLOMERULAR FILTRATION RATE > 60.0 (>49); GLUCOSE, FASTING 126 MG/DL (70-100); MAGNESIUM LEVEL 1.9 MG/DL (1.8-2.4); POTASSIUM SERUM 4.2 MEQ/L (3.5-5.1); SODIUM LEVEL 139 MEQ/L (136-145); TOTAL PROTEIN 6.1 GM/DL (6.4-8.2)
[2021-12-02] MEDS: EZETIMIBE 10MG TABLET (ZETIA) PO SCH (08:09)
[2021-12-02] MEDS: METOPROLOL TART 25 MG TABLET PO SCH (08:09)
[2021-12-02] MEDS: CLOPIDOGREL 75 MG TAB PO SCH (08:10)
[2021-12-02] MEDS: amLODIPine 5 MG TAB PO SCH ×2 (08:10→21:14)
[2021-12-02] MEDS: SENOKOT S TAB PO SCH ×2 (08:10→21:13)
[2021-12-02] MEDS: PREGABALIN 50 MG CAP (LYRICA) PO SCH ×2 (08:10→21:15)
[2021-12-02] MEDS: BENZTROPINE 1 MG TAB PO SCH ×3 (08:10→21:13)
[2021-12-02] MEDS: PANTOPRAZOLE 40MG TAB (PROTONIX) PO SCH (08:10)
[2021-12-02] MEDS: DULoxetine 30MG CAPSULE (CYMBALTA) PO SCH (08:10)
[2021-12-02] MEDS: INSULIN LISPRO (NovoLOG) PER UNIT SC SCH ×3 (08:10→17:32)
[2021-12-02] MEDS: LEVEMIR (INSULIN DETEMIR) 1 UNITS/0.01ML SC SCH ×2 (08:11→21:13)
[2021-12-02] MEDS: traMADol 50 MG TAB PO PRN ×3 (08:12→21:14)
[2021-12-02] MEDS: ANALGESIC BALM CRM 3OZ TOP SCH ×4 (09:39→21:00)
[2021-12-02 14:00] VITALS: BP 136/54
[2021-12-02] MEDS: ATORVASTATIN 20 MG TAB PO SCH (21:13)
[2021-12-02 22:00] VITALS: BP 143/71
[2021-12-03] MEDS: LEVOTHYROXINE 100MCG TABLET (0.1MG) PO SCH (05:33)
[2021-12-03 06:00] VITALS: BP 161/70
[2021-12-03 06:05] LABS: BASO % 0.4 % (0.0-1.0); EOS # 0.4 10^3/uL (0.0-0.5); EOS % 5.6 % (0.0-3.0); HEMATOCRIT 35.1 % (42.0-52.0); HEMOGLOBIN 11.3 g/dl (13.5-17.5); LYMPH # 1.3 10^3/uL (1.5-5.0); LYMPH % 17.1 % (24.0-44.0); MEAN CORPUSCULAR HGB CONC 32.2 g/dl (32.0-36.5); MONO # 0.5 10^3/uL (0.0-0.8); MONO % 7.1 % (2.0-8.0); NEUTROPHILS # 5.1 10^3/uL (1.5-8.5); NEUTROPHILS % 69.3 % (36.0-66.0); PLATELET COUNT, AUTOMATED 322 10^3/uL (150-450); WHITE BLOOD COUNT 7.4 10^3/uL (4.0-10.0)
[2021-12-03 06:35] LABS: ALT/SGPT 23 U/L (12-78); BILIRUBIN,TOTAL 0.7 MG/DL (0.2-1.0); BLOOD UREA NITROGEN 20 MG/DL (7-18); CALCIUM LEVEL 9.8 MG/DL (8.8-10.2); CARBON DIOXIDE LEVEL 28 MEQ/L (21-32); CHLORIDE LEVEL 105 MEQ/L (98-107); CREATININE FOR GFR 1.13 MG/DL (0.70-1.30); GLOMERULAR FILTRATION RATE > 60.0 (>49); GLUCOSE, FASTING 143 MG/DL (70-100); MAGNESIUM LEVEL 1.8 MG/DL (1.8-2.4); POTASSIUM SERUM 4.1 MEQ/L (3.5-5.1); SODIUM LEVEL 140 MEQ/L (136-145); TOTAL PROTEIN 6.5 GM/DL (6.4-8.2)
[2021-12-03] MEDS: MIRALAX *UNIT DOSE* 17GM PACKET PO PRN (08:01)
[2021-12-03] MEDS: EZETIMIBE 10MG TABLET (ZETIA) PO SCH (08:01)
[2021-12-03] MEDS: LEVEMIR (INSULIN DETEMIR) 1 UNITS/0.01ML SC SCH ×2 (08:01→21:15)
[2021-12-03] MEDS: INSULIN LISPRO (NovoLOG) PER UNIT SC SCH ×3 (08:01→18:36)
[2021-12-03] MEDS: MOM 30ML SUSPENSION UDC PO PRN (08:01)
[2021-12-03] MEDS: CLOPIDOGREL 75 MG TAB PO SCH (08:01)
[2021-12-03] MEDS: DULoxetine 30MG CAPSULE (CYMBALTA) PO SCH (08:01)
[2021-12-03] MEDS: BENZTROPINE 1 MG TAB PO SCH ×3 (08:02→21:15)
[2021-12-03] MEDS: PANTOPRAZOLE 40MG TAB (PROTONIX) PO SCH (08:02)
[2021-12-03] MEDS: SENOKOT S TAB PO SCH ×2 (08:02→21:09)
[2021-12-03] MEDS: amLODIPine 5 MG TAB PO SCH (08:02)
[2021-12-03] MEDS: METOPROLOL TART 25 MG TABLET PO SCH (08:02)
[2021-12-03] MEDS: PREGABALIN 50 MG CAP (LYRICA) PO SCH ×2 (08:02→21:14)
[2021-12-03] MEDS: traMADol 50 MG TAB PO PRN ×2 (08:03→14:55)
[2021-12-03] MEDS: ANALGESIC BALM CRM 3OZ TOP SCH ×4 (09:11→21:10)
[2021-12-03] MEDS ORDERED: GLUCAGON INJ 1MG VIAL IM STA (09:15)
[2021-12-03] MEDS ORDERED: FLEET ENEMA PR PRN (13:10)
[2021-12-03] MEDS ORDERED: MAGNESIUM CITRATE 300 ML BTL PO ONE (13:10)
[2021-12-03 14:00] VITALS: BP_SYST 148; BP_SYST 152; BP_DIAS 60; BP_DIAS 83
[2021-12-03 21:00] VITALS: BP 141/60
[2021-12-03] MEDS: ATORVASTATIN 20 MG TAB PO SCH (21:09)
[2021-12-04 05:21] VITALS: BP 141/61
[2021-12-04] MEDS: LEVOTHYROXINE 100MCG TABLET (0.1MG) PO SCH (06:25)
[2021-12-04 06:42] LABS: BASO # 0.1 10^3/uL (0.0-0.2); BASO % 0.6 % (0.0-1.0); EOS # 0.4 10^3/uL (0.0-0.5); EOS % 4.6 % (0.0-3.0); HEMATOCRIT 35.2 % (42.0-52.0); LYMPH # 1.3 10^3/uL (1.5-5.0); LYMPH % 16.8 % (24.0-44.0); MEAN CORPUSCULAR HEMOGLOBIN 28.4 pg (27.0-33.0); MEAN CORPUSCULAR HGB CONC 31.3 g/dl (32.0-36.5); MEAN CORPUSCULAR VOLUME 90.7 fl (80.0-96.0); MONO # 0.7 10^3/uL (0.0-0.8); MONO % 8.8 % (2.0-8.0); NEUTROPHILS # 5.4 10^3/uL (1.5-8.5); NEUTROPHILS % 68.7 % (36.0-66.0); PLATELET COUNT, AUTOMATED 349 10^3/uL (150-450); RED BLOOD COUNT 3.88 10^6/uL (4.30-6.10); WHITE BLOOD COUNT 7.9 10^3/uL (4.0-10.0)
[2021-12-04 06:58] LABS: ALBUMIN 2.9 GM/DL (3.2-5.2); BILIRUBIN,TOTAL 0.5 MG/DL (0.2-1.0); CALCIUM LEVEL 9.5 MG/DL (8.8-10.2); CREATININE FOR GFR 1.41 MG/DL (0.70-1.30); GLOMERULAR FILTRATION RATE 53.7 (>49); MAGNESIUM LEVEL 2.5 MG/DL (1.8-2.4); POTASSIUM SERUM 4.4 MEQ/L (3.5-5.1); TOTAL PROTEIN 6.2 GM/DL (6.4-8.2)
[2021-12-04] MEDS: INSULIN LISPRO (NovoLOG) PER UNIT SC SCH ×3 (07:30→18:08)
[2021-12-04] MEDS ORDERED: NS 1,000 ML IV ONE ×2 (07:55→08:00)
[2021-12-04] MEDS: SENOKOT S TAB PO SCH ×2 (08:14→20:48)
[2021-12-04] MEDS: PANTOPRAZOLE 40MG TAB (PROTONIX) PO SCH (08:14)
[2021-12-04] MEDS: EZETIMIBE 10MG TABLET (ZETIA) PO SCH (08:14)
[2021-12-04] MEDS: PREGABALIN 50 MG CAP (LYRICA) PO SCH ×2 (08:14→22:18)
[2021-12-04] MEDS: BENZTROPINE 1 MG TAB PO SCH ×3 (08:15→20:48)
[2021-12-04] MEDS: DULoxetine 30MG CAPSULE (CYMBALTA) PO SCH (08:15)
[2021-12-04] MEDS: CLOPIDOGREL 75 MG TAB PO SCH (08:15)
[2021-12-04] MEDS: ANALGESIC BALM CRM 3OZ TOP SCH ×4 (08:16→20:49)
[2021-12-04] MEDS: LEVEMIR (INSULIN DETEMIR) 1 UNITS/0.01ML SC SCH ×2 (08:16→20:53)
[2021-12-04] MEDS: traMADol 50 MG TAB PO PRN ×2 (08:19→15:00)
[2021-12-04] MEDS: **hydrALAZINE** 10 MG TAB PO SCH ×4 (08:19→23:37)
[2021-12-04] MEDS ORDERED: MECLIZINE 25 MG TABLET PO ONE (08:30)
[2021-12-04 12:00] VITALS: BP_SYST 115; BP_SYST 143; BP_SYST 149; BP_DIAS 62; BP_DIAS 66; BP_DIAS 67
[2021-12-04] MEDS ORDERED: MECLIZINE 25 MG TABLET PO PRN (12:30)
[2021-12-04] MEDS: FINASTERIDE 5MG TAB PO SCH (13:20)
[2021-12-04 14:00] VITALS: BP 150/60
[2021-12-04 16:12] LABS: CALCIUM LEVEL 9.2 MG/DL (8.8-10.2); CREATININE FOR GFR 1.46 MG/DL (0.70-1.30); GLOMERULAR FILTRATION RATE 51.6 (>49); POTASSIUM SERUM 4.8 MEQ/L (3.5-5.1)
[2021-12-04] MEDS: ATORVASTATIN 20 MG TAB PO SCH (20:48)
[2021-12-04 22:07] VITALS: BP 150/56
[2021-12-04 23:36] VITALS: BP 124/41
[2021-12-05 00:05] LABS: CALCIUM LEVEL 8.7 MG/DL (8.8-10.2); CREATININE FOR GFR 1.31 MG/DL (0.70-1.30); GLOMERULAR FILTRATION RATE 58.5 (>49); POTASSIUM SERUM 4.1 MEQ/L (3.5-5.1)
[2021-12-05] MEDS: LEVOTHYROXINE 100MCG TABLET (0.1MG) PO SCH (05:28)
[2021-12-05] MEDS: **hydrALAZINE** 10 MG TAB PO SCH ×2 (05:28→12:30)
[2021-12-05 06:28] LABS: BASO % 0.7 % (0.0-1.0); EOS # 0.3 10^3/uL (0.0-0.5); EOS % 5.6 % (0.0-3.0); HEMATOCRIT 32.7 % (42.0-52.0); HEMOGLOBIN 10.3 g/dl (13.5-17.5); LYMPH # 0.9 10^3/uL (1.5-5.0); LYMPH % 16.5 % (24.0-44.0); MEAN CORPUSCULAR HEMOGLOBIN 28.6 pg (27.0-33.0); MEAN CORPUSCULAR HGB CONC 31.5 g/dl (32.0-36.5); MEAN CORPUSCULAR VOLUME 90.8 fl (80.0-96.0); MONO # 0.4 10^3/uL (0.0-0.8); MONO % 8.1 % (2.0-8.0); NEUTROPHILS # 3.7 10^3/uL (1.5-8.5); NEUTROPHILS % 68.5 % (36.0-66.0); PLATELET COUNT, AUTOMATED 321 10^3/uL (150-450); WHITE BLOOD COUNT 5.3 10^3/uL (4.0-10.0)
[2021-12-05 06:50] VITALS: BP 146/57
[2021-12-05 07:02] LABS: ALBUMIN 2.7 GM/DL (3.2-5.2); ALT/SGPT 21 U/L (12-78); BILIRUBIN,TOTAL 0.6 MG/DL (0.2-1.0); BLOOD UREA NITROGEN 22 MG/DL (7-18); CALCIUM LEVEL 8.7 MG/DL (8.8-10.2); CARBON DIOXIDE LEVEL 29 MEQ/L (21-32); CHLORIDE LEVEL 105 MEQ/L (98-107); CREATININE FOR GFR 1.24 MG/DL (0.70-1.30); GLOMERULAR FILTRATION RATE > 60.0 (>49); GLUCOSE, FASTING 175 MG/DL (70-100); MAGNESIUM LEVEL 2.2 MG/DL (1.8-2.4); SODIUM LEVEL 139 MEQ/L (136-145); TOTAL PROTEIN 6.4 GM/DL (6.4-8.2)
[2021-12-05] MEDS: INSULIN LISPRO (NovoLOG) PER UNIT SC SCH ×3 (07:51→17:36)
[2021-12-05] MEDS: traMADol 50 MG TAB PO PRN (07:52)
[2021-12-05] MEDS ORDERED: PERCOCET 5MG/325MG TAB PO ONE (08:35)
[2021-12-05] MEDS ORDERED: METOPROLOL TART 12.5 MG PER 1/2 TAB PO SCH (09:00)
[2021-12-05] MEDS: SENOKOT S TAB PO SCH ×2 (09:12→22:35)
[2021-12-05] MEDS: PANTOPRAZOLE 40MG TAB (PROTONIX) PO SCH (09:12)
[2021-12-05] MEDS: PREGABALIN 50 MG CAP (LYRICA) PO SCH ×2 (09:12→22:35)
[2021-12-05] MEDS: FINASTERIDE 5MG TAB PO SCH (09:12)
[2021-12-05] MEDS: DULoxetine 30MG CAPSULE (CYMBALTA) PO SCH (09:12)
[2021-12-05] MEDS: EZETIMIBE 10MG TABLET (ZETIA) PO SCH (09:12)
[2021-12-05] MEDS: BENZTROPINE 1 MG TAB PO SCH ×3 (09:12→22:35)
[2021-12-05] MEDS: CLOPIDOGREL 75 MG TAB PO SCH (09:12)
[2021-12-05] MEDS: ANALGESIC BALM CRM 3OZ TOP SCH ×4 (09:13→22:35)
[2021-12-05] MEDS: LEVEMIR (INSULIN DETEMIR) 1 UNITS/0.01ML SC SCH ×2 (09:13→22:34)
[2021-12-05] MEDS ORDERED: ISOSORBIDE MONONITRATE 10MG TABLET PO SCH (17:00)
[2021-12-05] MEDS ORDERED: **hydrALAZINE** 10 MG TAB PO SCH (21:00)
[2021-12-05] MEDS: ATORVASTATIN 20 MG TAB PO SCH (22:34)
[2021-12-05 22:37] VITALS: BP 157/57
[2021-12-06] MEDS: traMADol 50 MG TAB PO PRN ×4 (01:24→23:00)
[2021-12-06 06:00] VITALS: BP 169/64
[2021-12-06] MEDS: LEVOTHYROXINE 100MCG TABLET (0.1MG) PO SCH (06:25)
[2021-12-06 06:30] LABS: BASO % 0.6 % (0.0-1.0); EOS # 0.3 10^3/uL (0.0-0.5); EOS % 4.7 % (0.0-3.0); HEMATOCRIT 33.9 % (42.0-52.0); HEMOGLOBIN 10.7 g/dl (13.5-17.5); LYMPH # 1.1 10^3/uL (1.5-5.0); LYMPH % 15.4 % (24.0-44.0); MEAN CORPUSCULAR HEMOGLOBIN 28.4 pg (27.0-33.0); MEAN CORPUSCULAR HGB CONC 31.6 g/dl (32.0-36.5); MEAN CORPUSCULAR VOLUME 89.9 fl (80.0-96.0); MONO # 0.6 10^3/uL (0.0-0.8); MONO % 7.8 % (2.0-8.0); NEUTROPHILS # 5.1 10^3/uL (1.5-8.5); NEUTROPHILS % 71.1 % (36.0-66.0); PLATELET COUNT, AUTOMATED 320 10^3/uL (150-450); RED BLOOD COUNT 3.77 10^6/uL (4.30-6.10); WHITE BLOOD COUNT 7.2 10^3/uL (4.0-10.0)
[2021-12-06 06:52] LABS: ALBUMIN 2.9 GM/DL (3.2-5.2); ALT/SGPT 23 U/L (12-78); BILIRUBIN,TOTAL 0.6 MG/DL (0.2-1.0); BLOOD UREA NITROGEN 19 MG/DL (7-18); CALCIUM LEVEL 9.2 MG/DL (8.8-10.2); CARBON DIOXIDE LEVEL 29 MEQ/L (21-32); CHLORIDE LEVEL 105 MEQ/L (98-107); CREATININE FOR GFR 1.19 MG/DL (0.70-1.30); GLOMERULAR FILTRATION RATE > 60.0 (>49); GLUCOSE, FASTING 138 MG/DL (70-100); MAGNESIUM LEVEL 1.9 MG/DL (1.8-2.4); POTASSIUM SERUM 4.3 MEQ/L (3.5-5.1); SODIUM LEVEL 139 MEQ/L (136-145); TOTAL PROTEIN 6.4 GM/DL (6.4-8.2)
[2021-12-06] MEDS: INSULIN LISPRO (NovoLOG) PER UNIT SC SCH ×3 (08:18→17:11)
[2021-12-06] MEDS: MIRALAX *UNIT DOSE* 17GM PACKET PO PRN (08:19)
[2021-12-06] MEDS: ANALGESIC BALM CRM 3OZ TOP SCH ×4 (08:19→21:30)
[2021-12-06] MEDS: LEVEMIR (INSULIN DETEMIR) 1 UNITS/0.01ML SC SCH ×2 (08:19→21:28)
[2021-12-06] MEDS: CLOPIDOGREL 75 MG TAB PO SCH (08:20)
[2021-12-06] MEDS: PREGABALIN 50 MG CAP (LYRICA) PO SCH ×2 (08:20→21:29)
[2021-12-06] MEDS: FINASTERIDE 5MG TAB PO SCH (08:20)
[2021-12-06] MEDS: EZETIMIBE 10MG TABLET (ZETIA) PO SCH (08:20)
[2021-12-06] MEDS: SENOKOT S TAB PO SCH ×2 (08:20→21:29)
[2021-12-06] MEDS: BENZTROPINE 1 MG TAB PO SCH ×3 (08:21→21:29)
[2021-12-06] MEDS: DULoxetine 30MG CAPSULE (CYMBALTA) PO SCH (08:21)
[2021-12-06] MEDS: PANTOPRAZOLE 40MG TAB (PROTONIX) PO SCH (08:21)
[2021-12-06] MEDS ORDERED: metOLazone 5 MG TAB PO ONE (08:30)
[2021-12-06] MEDS ORDERED: FUROSEMIDE 40 MG TAB PO ONE (09:00)
[2021-12-06 17:20] LABS: CALCIUM LEVEL 9.5 MG/DL (8.8-10.2); CREATININE FOR GFR 1.31 MG/DL (0.70-1.30); GLOMERULAR FILTRATION RATE 58.5 (>49); MAGNESIUM LEVEL 1.9 MG/DL (1.8-2.4); POTASSIUM SERUM 4.1 MEQ/L (3.5-5.1)
[2021-12-06] MEDS: ATORVASTATIN 20 MG TAB PO SCH (21:29)
[2021-12-07] MEDS: LEVOTHYROXINE 100MCG TABLET (0.1MG) PO SCH (05:57)
[2021-12-07 06:00] VITALS: BP 160/71
[2021-12-07 06:28] LABS: CALCIUM LEVEL 9.4 MG/DL (8.8-10.2); CREATININE FOR GFR 1.28 MG/DL (0.70-1.30); MAGNESIUM LEVEL 1.9 MG/DL (1.8-2.4); POTASSIUM SERUM 3.9 MEQ/L (3.5-5.1)
[2021-12-07] MEDS: LEVEMIR (INSULIN DETEMIR) 1 UNITS/0.01ML SC SCH ×2 (09:22→20:49)
[2021-12-07] MEDS: PREGABALIN 50 MG CAP (LYRICA) PO SCH ×2 (09:23→20:49)
[2021-12-07] MEDS: CLOPIDOGREL 75 MG TAB PO SCH (09:23)
[2021-12-07] MEDS: INSULIN LISPRO (NovoLOG) PER UNIT SC SCH ×3 (09:23→16:30)
[2021-12-07] MEDS: PANTOPRAZOLE 40MG TAB (PROTONIX) PO SCH (09:23)
[2021-12-07] MEDS: EZETIMIBE 10MG TABLET (ZETIA) PO SCH (09:23)
[2021-12-07] MEDS: FINASTERIDE 5MG TAB PO SCH (09:23)
[2021-12-07] MEDS: SENOKOT S TAB PO SCH ×2 (09:24→20:50)
[2021-12-07] MEDS: DULoxetine 30MG CAPSULE (CYMBALTA) PO SCH (09:24)
[2021-12-07] MEDS: BENZTROPINE 1 MG TAB PO SCH ×3 (09:24→20:50)
[2021-12-07] MEDS: ANALGESIC BALM CRM 3OZ TOP SCH ×4 (09:24→20:49)
[2021-12-07] MEDS ORDERED: MECL-86 PO (15:05)
[2021-12-07] MEDS ORDERED: TRAM50TA2 PO (15:05)
[2021-12-07] MEDS ORDERED: SENN-52 PO (15:05)
[2021-12-07] MEDS ORDERED: FINA5TAB2 PO (15:07)
[2021-12-07] MEDS: ATORVASTATIN 20 MG TAB PO SCH (20:49)
[2021-12-07 21:00] VITALS: BP 150/70
[2021-12-08] MEDS: MOM 30ML SUSPENSION UDC PO PRN (06:14)
[2021-12-08] MEDS: LEVOTHYROXINE 100MCG TABLET (0.1MG) PO SCH (06:14)
[2021-12-08 06:28] VITALS: BP 157/72
[2021-12-08 06:42] LABS: CALCIUM LEVEL 9.5 MG/DL (8.8-10.2); CREATININE FOR GFR 1.35 MG/DL (0.70-1.30); GLOMERULAR FILTRATION RATE 56.5 (>49); MAGNESIUM LEVEL 1.8 MG/DL (1.8-2.4); POTASSIUM SERUM 4.3 MEQ/L (3.5-5.1)
[2021-12-08] MEDS: MIRALAX *UNIT DOSE* 17GM PACKET PO PRN (10:29)
[2021-12-08] MEDS: EZETIMIBE 10MG TABLET (ZETIA) PO SCH (10:29)
[2021-12-08] MEDS: traMADol 50 MG TAB PO PRN ×2 (10:29→17:09)
[2021-12-08] MEDS: PREGABALIN 50 MG CAP (LYRICA) PO SCH ×2 (10:29→21:07)
[2021-12-08] MEDS: CLOPIDOGREL 75 MG TAB PO SCH (10:30)
[2021-12-08] MEDS: INSULIN LISPRO (NovoLOG) PER UNIT SC SCH ×3 (10:30→17:08)
[2021-12-08] MEDS: DULoxetine 30MG CAPSULE (CYMBALTA) PO SCH (10:30)
[2021-12-08] MEDS: LEVEMIR (INSULIN DETEMIR) 1 UNITS/0.01ML SC SCH ×2 (10:30→21:08)
[2021-12-08] MEDS: FINASTERIDE 5MG TAB PO SCH (10:30)
[2021-12-08] MEDS: PANTOPRAZOLE 40MG TAB (PROTONIX) PO SCH (10:30)
[2021-12-08] MEDS: BENZTROPINE 1 MG TAB PO SCH ×3 (10:30→21:07)
[2021-12-08] MEDS: ANALGESIC BALM CRM 3OZ TOP SCH ×4 (10:31→21:08)
[2021-12-08] MEDS: SENOKOT S TAB PO SCH ×2 (10:31→21:08)
[2021-12-08] MEDS: ATORVASTATIN 20 MG TAB PO SCH (21:07)
[2021-12-09 04:55] VITALS: BP 162/84
[2021-12-09] MEDS: LEVOTHYROXINE 100MCG TABLET (0.1MG) PO SCH (06:05)
[2021-12-09 06:16] LABS: CREATININE FOR GFR 1.6 MG/DL (0.70-1.30); GLOMERULAR FILTRATION RATE 46.4 (>49); POTASSIUM SERUM 4.2 MEQ/L (3.5-5.1)
[2021-12-09 06:17] LABS: CALCIUM LEVEL 9.6 MG/DL (8.8-10.2); MAGNESIUM LEVEL 1.8 MG/DL (1.8-2.4)
[2021-12-09 07:00] VITALS: BP 132/60
[2021-12-09] MEDS: INSULIN LISPRO (NovoLOG) PER UNIT SC SCH ×2 (07:30→12:45)
[2021-12-09] MEDS: DULoxetine 30MG CAPSULE (CYMBALTA) PO SCH (08:23)
[2021-12-09] MEDS: FINASTERIDE 5MG TAB PO SCH (08:24)
[2021-12-09] MEDS: CLOPIDOGREL 75 MG TAB PO SCH (08:24)
[2021-12-09] MEDS: SENOKOT S TAB PO SCH (08:24)
[2021-12-09] MEDS: BENZTROPINE 1 MG TAB PO SCH (08:24)
[2021-12-09] MEDS: PANTOPRAZOLE 40MG TAB (PROTONIX) PO SCH (08:24)
[2021-12-09] MEDS: LEVEMIR (INSULIN DETEMIR) 1 UNITS/0.01ML SC SCH (08:24)
[2021-12-09] MEDS: ANALGESIC BALM CRM 3OZ TOP SCH (08:25)
[2021-12-09] MEDS: PREGABALIN 50 MG CAP (LYRICA) PO SCH (08:39)
[2021-12-09] MEDS: traMADol 50 MG TAB PO PRN (08:40)
[2021-12-09] MEDS: EZETIMIBE 10MG TABLET (ZETIA) PO SCH (08:40)
[2021-12-09] MEDS ORDERED: CYMB1CAP5 PO (11:53)
== END 2021-12-09 14:20 | DRG 92 ==
LOC: EDBD 01:15 → M ED 01:15 → M ED INP 06:49 → ENRESERV 11:51 → M PCU 13:57 → M MSPAV 11-30 17:17
PROVIDERS: ADMIT Internal Medicine; ATTEND Internal Medicine
DX: G92.8 Other toxic encephalopathy (principal); N17.9 Acute kidney failure, unspecified; Z68.41 Body mass index [BMI] 40.0-44.9, adult; E87.2 Acidosis; S80.01XA Contusion of right knee, initial encounter; E11.22 Type 2 diabetes mellitus with diabetic chronic kidney disease; Z79.4 Long term (current) use of insulin; E66.01 Morbid (severe) obesity due to excess calories; E03.9 Hypothyroidism, unspecified; I12.9 Hypertensive chronic kidney disease with stage 1 through stage 4 chronic kidney disease, or unspecified chronic kidney disease; K21.9 Gastro-esophageal reflux disease without esophagitis; N18.30 Chronic kidney disease, stage 3 unspecified; R29.6 Repeated falls; I95.1 Orthostatic hypotension; E78.5 Hyperlipidemia, unspecified; I25.10 Atherosclerotic heart disease of native coronary artery without angina pectoris; G47.30 Sleep apnea, unspecified; R00.1 Bradycardia, unspecified; W18.30XA Fall on same level, unspecified, initial encounter; Y92.009 Unspecified place in unspecified non-institutional (private) residence as the place of occurrence of the external cause; I71.4 Abdominal aortic aneurysm, without rupture; I25.2 Old myocardial infarction; N40.0 Benign prostatic hyperplasia without lower urinary tract symptoms; F41.9 Anxiety disorder, unspecified; F32.A Depression, unspecified; Z95.2 Presence of prosthetic heart valve; E87.5 Hyperkalemia; Z79.899 Other long term (current) drug therapy; Z91.013 Allergy to seafood; Z88.8 Allergy status to other drugs, medicaments and biological substances; Z88.0 Allergy status to penicillin; Z88.2 Allergy status to sulfonamides; Z88.6 Allergy status to analgesic agent

== ENCOUNTER → 2022-03-02 | Outpatient (CLI) | payer MEDICARE, OTHER ==
[~2022-03-02] MED LIST changes: +ACET-683 PO; +BENZ-52 PO; +CYMB1CAP5 PO; +FINA5TAB2 PO; +FURO20TA2 PO; +KETO2CR TOP; +LATU120T PO; +LEVO200T4 PO; +MECL-86 PO; +METO1TAB7 PO; +POTA-150 PO; +QUET300T2 PO; +SEMA1PEN2 SQ; +SENN-52 PO; +TRAM50TA2 PO
== END ==
LOC: M SOG 16:05
PROVIDERS: ATTEND Orthopaedic Surgery Hand Surgery
DX: M17.11 Unilateral primary osteoarthritis, right knee (principal)

== ENCOUNTER 2022-03-04 15:42 | Inpatient (IN) | payer MEDICARE, OTHER ==
[~2022-03-04] VITALS: Ht 170.2 cm; Wt 121.5 kg
[~2022-03-04 15:42] MED LIST changes: -KETO2CR TOP; -METO1TAB7 PO; -QUET300T2 PO
[2022-03-04] MEDS ORDERED: QUET300T2 PO (15:57)
[2022-03-04 17:40] LABS: BASO % 0.4 % (0.0-1.0); EOS # 0.2 10^3/uL (0.0-0.5); EOS % 2.5 % (0.0-3.0); HEMATOCRIT 38.4 % (42.0-52.0); HEMOGLOBIN 12.1 g/dl (13.5-17.5); LYMPH # 0.9 10^3/uL (1.5-5.0); LYMPH % 13.9 % (24.0-44.0); MEAN CORPUSCULAR HEMOGLOBIN 27.4 pg (27.0-33.0); MEAN CORPUSCULAR HGB CONC 31.5 g/dl (32.0-36.5); MEAN CORPUSCULAR VOLUME 86.9 fl (80.0-96.0); MONO # 0.5 10^3/uL (0.0-0.8); NEUTROPHILS # 5.1 10^3/uL (1.5-8.5); NEUTROPHILS % 75.8 % (36.0-66.0); PLATELET COUNT, AUTOMATED 288 10^3/uL (150-450); RED BLOOD COUNT 4.42 10^6/uL (4.30-6.10); WHITE BLOOD COUNT 6.7 10^3/uL (4.0-10.0)
[2022-03-04 18:13] LABS: ALBUMIN 3.2 GM/DL (3.2-5.2); BILIRUBIN,TOTAL 0.6 MG/DL (0.2-1.0); CALCIUM LEVEL 8.9 MG/DL (8.8-10.2); CREATININE FOR GFR 1.39 MG/DL (0.70-1.30); GLOMERULAR FILTRATION RATE 54.6 (>49); TOTAL PROTEIN 6.8 GM/DL (6.4-8.2)
[2022-03-04 20:40] LABS: CK-MB VALUE MASS < 1.0 NG/ML (<3.6); CPK CREATINE PHOSPHOKINASE 72 U/L (39-308); MB/CK RELATIVE INDEX 1.39 (< OR =4)
[2022-03-04] MEDS ORDERED: GLUCOSE 4GM CHEW TABLET PO PRN (20:55)
[2022-03-04] MEDS ORDERED: GLUCAGON INJ 1MG VIAL SC PRN (20:55)
[2022-03-04] MEDS ORDERED: DEXTROSE 50% 50 ML SYRINGE IV PRN (20:55)
[2022-03-04] MEDS ORDERED: QUEtiapine FUMARATE 100 MG TAB PO SCH (21:00)
[2022-03-04] MEDS: INSULIN LISPRO (NovoLOG) PER UNIT SC SCH (21:00)
[2022-03-04 21:20] LABS: FREE T4 0.73 NG/DL (0.76-1.46); THYROID STIMULATING HORMONE 1.36 uIU/ML (0.358-3.740)
[2022-03-04 21:47] LABS: C REACTIVE PROTEIN QUANTITATIV 5.27 MG/DL (0.00-0.30); MAGNESIUM LEVEL 1.8 MG/DL (1.8-2.4); URIC ACID 8.8 MG/DL (3.5-7.2)
[2022-03-04 22:05] LABS: MB/CK RELATIVE INDEX 1.35 (< OR =4)
[2022-03-04] MEDS ORDERED: SENN-52 PO (22:14)
[2022-03-04] MEDS ORDERED: TRAM50TA2 PO (22:14)
[2022-03-04] MEDS ORDERED: MECL-86 PO (22:14)
[2022-03-04] MEDS ORDERED: LATU80TA2 PO (22:14)
[2022-03-04] MEDS ORDERED: METO1TAB7 PO (22:14)
[2022-03-04] MEDS ORDERED: FINA5TAB2 PO (22:14)
[2022-03-04] MEDS ORDERED: KETO2CR TOP (22:14)
[2022-03-04] MEDS ORDERED: CYMB1CAP5 PO (22:14)
[2022-03-04] MEDS ORDERED: HOME MED LIST COMPLETE! XX SCH (22:15)
[2022-03-04 22:18] LABS: ERYTHROCYTE SEDIMENTATION RATE 45 mm/hr (0-20)
[2022-03-04] MEDS ORDERED: SENOKOT S TAB PO PRN (23:35)
[2022-03-04] MEDS ORDERED: **hydrALAZINE** 10 MG TAB PO PRN (23:40)
[2022-03-04 23:50] LABS: CK-MB VALUE MASS < 1.0 NG/ML (<3.6); CPK CREATINE PHOSPHOKINASE 74 U/L (39-308); MB/CK RELATIVE INDEX 1.35 (< OR =4)
[2022-03-05 00:42] VITALS: BP 156/61
[2022-03-05] MEDS: NS 1,000 ML IV SCH ×3 (01:13→18:00)
[2022-03-05] MEDS: traMADol 50 MG TAB PO PRN (01:14)
[2022-03-05] MEDS: NYSTATIN 100,000 UNITS/GM TOPICAL PWD 15 GM TOP SCH ×3 (01:14→21:19)
[2022-03-05 03:08] LABS: HEMATOCRIT 36.2 % (42.0-52.0); HEMOGLOBIN 11.5 g/dl (13.5-17.5); MEAN CORPUSCULAR HEMOGLOBIN 27.3 pg (27.0-33.0); MEAN CORPUSCULAR HGB CONC 31.8 g/dl (32.0-36.5); PLATELET COUNT, AUTOMATED 269 10^3/uL (150-450); RED BLOOD COUNT 4.21 10^6/uL (4.30-6.10); WHITE BLOOD COUNT 5.9 10^3/uL (4.0-10.0)
[2022-03-05 03:52] LABS: ALBUMIN 2.8 GM/DL (3.2-5.2); BILIRUBIN,TOTAL 0.4 MG/DL (0.2-1.0); CALCIUM LEVEL 8.3 MG/DL (8.8-10.2); CREATININE FOR GFR 1.32 MG/DL (0.70-1.30); GLOMERULAR FILTRATION RATE 57.9 (>49); MAGNESIUM LEVEL 1.8 MG/DL (1.8-2.4); TOTAL PROTEIN 6.2 GM/DL (6.4-8.2)
[2022-03-05 03:53] LABS: INR 0.97; PROTHROMBIN TIME 13.1 SECONDS (12.5-14.5)
[2022-03-05 04:50] VITALS: BP 118/67
[2022-03-05 05:19] VITALS: BP_SYST 118; BP_SYST 136; BP_DIAS 67; BP_DIAS 77
[2022-03-05] MEDS: LEVOTHYROXINE 100MCG TABLET (0.1MG) PO SCH (06:13)
[2022-03-05] MEDS: HEPARIN SOD (PORCINE) 5000UNITS/ML 1ML VIAL/SYRINGE SQ SCH ×3 (06:14→21:18)
[2022-03-05] MEDS: INSULIN LISPRO (NovoLOG) PER UNIT SC SCH ×4 (07:30→20:34)
[2022-03-05] MEDS ORDERED: MECLIZINE 25 MG TABLET PO PRN (07:45)
[2022-03-05] MEDS ORDERED: HEPARIN SOD (PORCINE) 5000UNITS/ML 1ML VIAL/SYRINGE SQ SCH (09:00)
[2022-03-05] MEDS ORDERED: LEVEMIR (INSULIN DETEMIR) 1 UNITS/0.01ML SC SCH (09:00)
[2022-03-05] MEDS: PREGABALIN 50 MG CAP (LYRICA) PO SCH ×2 (09:18→13:47)
[2022-03-05] MEDS: ASCORBIC ACID 250 MG TAB PO SCH (09:18)
[2022-03-05] MEDS: EZETIMIBE 10MG TABLET (ZETIA) PO SCH (09:18)
[2022-03-05] MEDS: FLUTICASONE PROP 0.05% NASAL SPRAY 16 GM (FLONASE) NARES SCH (09:18)
[2022-03-05] MEDS: MULTIVITAMINS/MINERALS THERAP 1 TAB PO SCH (09:18)
[2022-03-05] MEDS: BENZTROPINE 1 MG TAB PO SCH ×3 (09:18→21:18)
[2022-03-05] MEDS: CLOPIDOGREL 75 MG TAB PO SCH (09:18)
[2022-03-05] MEDS: DULoxetine 30MG CAPSULE (CYMBALTA) PO SCH (09:18)
[2022-03-05] MEDS: FINASTERIDE 5MG TAB PO SCH (09:18)
[2022-03-05] MEDS: METOPROLOL SUCC *XL* 25MG TAB (TopROL *XL*) PO SCH (09:19)
[2022-03-05] MEDS: PANTOPRAZOLE 40MG TAB (PROTONIX) PO SCH (09:19)
[2022-03-05 14:00] VITALS: BP 137/73
[2022-03-05] MEDS: LURASIDONE HCL 40MG TAB (LATUDA) PO SCH (17:09)
[2022-03-05 17:24] VITALS: BP_SYST 132; BP_SYST 143; BP_SYST 144; BP_DIAS 71; BP_DIAS 72; BP_DIAS 73
[2022-03-05 20:45] VITALS: BP 134/50
[2022-03-05] MEDS: QUEtiapine FUMARATE 100 MG TAB PO SCH (21:18)
[2022-03-05] MEDS: ATORVASTATIN 20 MG TAB PO SCH (21:18)
[2022-03-06] MEDS: NS 1,000 ML IV SCH ×2 (01:23→11:18)
[2022-03-06] MEDS: LEVOTHYROXINE 100MCG TABLET (0.1MG) PO SCH (05:36)
[2022-03-06] MEDS: HEPARIN SOD (PORCINE) 5000UNITS/ML 1ML VIAL/SYRINGE SQ SCH ×3 (05:36→21:43)
[2022-03-06 05:52] VITALS: BP_SYST 138; BP_SYST 140; BP_SYST 149; BP_SYST 150; BP_DIAS 123; BP_DIAS 62; BP_DIAS 66; BP_DIAS 68
[2022-03-06 06:12] LABS: HEMATOCRIT 35.5 % (42.0-52.0); HEMOGLOBIN 11.2 g/dl (13.5-17.5); MEAN CORPUSCULAR HEMOGLOBIN 27.5 pg (27.0-33.0); MEAN CORPUSCULAR HGB CONC 31.5 g/dl (32.0-36.5); MEAN CORPUSCULAR VOLUME 87.2 fl (80.0-96.0); PLATELET COUNT, AUTOMATED 258 10^3/uL (150-450); RED BLOOD COUNT 4.07 10^6/uL (4.30-6.10); WHITE BLOOD COUNT 6.1 10^3/uL (4.0-10.0)
[2022-03-06] MEDS: INSULIN LISPRO (NovoLOG) PER UNIT SC SCH ×4 (07:30→21:00)
[2022-03-06 07:55] LABS: ALBUMIN 2.6 GM/DL (3.2-5.2); ALT/SGPT 24 U/L (12-78); BILIRUBIN,TOTAL 0.4 MG/DL (0.2-1.0); BLOOD UREA NITROGEN 15 MG/DL (7-18); CALCIUM LEVEL 8.4 MG/DL (8.8-10.2); CARBON DIOXIDE LEVEL 27 MEQ/L (21-32); CHLORIDE LEVEL 111 MEQ/L (98-107); CREATININE FOR GFR 1.16 MG/DL (0.70-1.30); GLOMERULAR FILTRATION RATE > 60.0 (>49); GLUCOSE, FASTING 123 MG/DL (70-100); POTASSIUM SERUM 3.9 MEQ/L (3.5-5.1); SODIUM LEVEL 143 MEQ/L (136-145); TOTAL PROTEIN 5.8 GM/DL (6.4-8.2)
[2022-03-06] MEDS: ASCORBIC ACID 250 MG TAB PO SCH (08:52)
[2022-03-06] MEDS: DULoxetine 30MG CAPSULE (CYMBALTA) PO SCH (08:52)
[2022-03-06] MEDS: METOPROLOL SUCC *XL* 25MG TAB (TopROL *XL*) PO SCH (08:52)
[2022-03-06] MEDS: PREGABALIN 50 MG CAP (LYRICA) PO SCH ×2 (08:52→13:07)
[2022-03-06] MEDS: PANTOPRAZOLE 40MG TAB (PROTONIX) PO SCH (08:52)
[2022-03-06] MEDS: EZETIMIBE 10MG TABLET (ZETIA) PO SCH (08:52)
[2022-03-06] MEDS: FINASTERIDE 5MG TAB PO SCH (08:52)
[2022-03-06] MEDS: TAMSULOSIN 0.4 MG CAP PO SCH (08:52)
[2022-03-06] MEDS: CLOPIDOGREL 75 MG TAB PO SCH (08:52)
[2022-03-06] MEDS: BENZTROPINE 1 MG TAB PO SCH ×3 (08:52→21:43)
[2022-03-06] MEDS: MULTIVITAMINS/MINERALS THERAP 1 TAB PO SCH (08:52)
[2022-03-06] MEDS: NYSTATIN 100,000 UNITS/GM TOPICAL PWD 15 GM TOP SCH ×2 (08:53→21:43)
[2022-03-06] MEDS: FLUTICASONE PROP 0.05% NASAL SPRAY 16 GM (FLONASE) NARES SCH (08:53)
[2022-03-06 15:00] VITALS: BP 139/69
[2022-03-06] MEDS: traMADol 50 MG TAB PO PRN (17:32)
[2022-03-06] MEDS: LURASIDONE HCL 40MG TAB (LATUDA) PO SCH (17:32)
[2022-03-06] MEDS: ATORVASTATIN 20 MG TAB PO SCH (21:43)
[2022-03-06] MEDS: QUEtiapine FUMARATE 100 MG TAB PO SCH (21:43)
[2022-03-07 05:24] VITALS: BP 142/86
[2022-03-07] MEDS: LEVOTHYROXINE 100MCG TABLET (0.1MG) PO SCH (05:48)
[2022-03-07] MEDS: HEPARIN SOD (PORCINE) 5000UNITS/ML 1ML VIAL/SYRINGE SQ SCH ×3 (05:49→21:43)
[2022-03-07 06:07] LABS: HEMATOCRIT 34.5 % (42.0-52.0); HEMOGLOBIN 11.7 g/dl (13.5-17.5); MEAN CORPUSCULAR HEMOGLOBIN 28.9 pg (27.0-33.0); MEAN CORPUSCULAR HGB CONC 33.9 g/dl (32.0-36.5); MEAN CORPUSCULAR VOLUME 85.2 fl (80.0-96.0); PLATELET COUNT, AUTOMATED 281 10^3/uL (150-450); RED BLOOD COUNT 4.05 10^6/uL (4.30-6.10); WHITE BLOOD COUNT 5.9 10^3/uL (4.0-10.0)
[2022-03-07 06:41] LABS: ALBUMIN 2.8 GM/DL (3.2-5.2); ALT/SGPT 22 U/L (12-78); BILIRUBIN,TOTAL 0.5 MG/DL (0.2-1.0); BLOOD UREA NITROGEN 13 MG/DL (7-18); CARBON DIOXIDE LEVEL 30 MEQ/L (21-32); CHLORIDE LEVEL 108 MEQ/L (98-107); CREATININE FOR GFR 1.17 MG/DL (0.70-1.30); GLOMERULAR FILTRATION RATE > 60.0 (>49); GLUCOSE, FASTING 121 MG/DL (70-100); SODIUM LEVEL 141 MEQ/L (136-145)
[2022-03-07] MEDS: INSULIN LISPRO (NovoLOG) PER UNIT SC SCH ×4 (08:11→21:00)
[2022-03-07] MEDS: ACETAMINOPHEN TAB 650MG DOSE (2X325MG) PO PRN ×2 (08:16→12:29)
[2022-03-07 08:56] VITALS: BP 142/57
[2022-03-07] MEDS: FLUTICASONE PROP 0.05% NASAL SPRAY 16 GM (FLONASE) NARES SCH ×2 (09:00→10:27)
[2022-03-07] MEDS: ASCORBIC ACID 250 MG TAB PO SCH (09:00)
[2022-03-07] MEDS: PREGABALIN 50 MG CAP (LYRICA) PO SCH ×2 (10:23→12:29)
[2022-03-07] MEDS: CLOPIDOGREL 75 MG TAB PO SCH (10:24)
[2022-03-07] MEDS: TAMSULOSIN 0.4 MG CAP PO SCH (10:25)
[2022-03-07] MEDS: EZETIMIBE 10MG TABLET (ZETIA) PO SCH (10:25)
[2022-03-07] MEDS: FINASTERIDE 5MG TAB PO SCH (10:25)
[2022-03-07] MEDS: MULTIVITAMINS/MINERALS THERAP 1 TAB PO SCH (10:25)
[2022-03-07] MEDS: DULoxetine 30MG CAPSULE (CYMBALTA) PO SCH (10:26)
[2022-03-07] MEDS: METOPROLOL SUCC *XL* 25MG TAB (TopROL *XL*) PO SCH (10:27)
[2022-03-07] MEDS: PANTOPRAZOLE 40MG TAB (PROTONIX) PO SCH (10:27)
[2022-03-07] MEDS: BENZTROPINE 1 MG TAB PO SCH ×3 (10:27→21:43)
[2022-03-07] MEDS: NYSTATIN 100,000 UNITS/GM TOPICAL PWD 15 GM TOP SCH ×2 (10:28→21:43)
[2022-03-07 15:00] VITALS: BP 143/59
[2022-03-07] MEDS: LURASIDONE HCL 40MG TAB (LATUDA) PO SCH (16:58)
[2022-03-07] MEDS: ATORVASTATIN 20 MG TAB PO SCH (21:43)
[2022-03-07] MEDS: QUEtiapine FUMARATE 100 MG TAB PO SCH (21:43)
[2022-03-07] MEDS: traMADol 50 MG TAB PO PRN (23:17)
[2022-03-08 05:00] VITALS: BP 172/76
[2022-03-08 05:23] VITALS: BP 188/78
[2022-03-08] MEDS: LEVOTHYROXINE 100MCG TABLET (0.1MG) PO SCH (05:26)
[2022-03-08] MEDS: HEPARIN SOD (PORCINE) 5000UNITS/ML 1ML VIAL/SYRINGE SQ SCH ×3 (05:38→22:42)
[2022-03-08 06:34] LABS: HEMOGLOBIN 11.4 g/dl (13.5-17.5); MEAN CORPUSCULAR HEMOGLOBIN 27.9 pg (27.0-33.0); MEAN CORPUSCULAR HGB CONC 32.6 g/dl (32.0-36.5); MEAN CORPUSCULAR VOLUME 85.6 fl (80.0-96.0); PLATELET COUNT, AUTOMATED 264 10^3/uL (150-450); RED BLOOD COUNT 4.09 10^6/uL (4.30-6.10); WHITE BLOOD COUNT 6.7 10^3/uL (4.0-10.0)
[2022-03-08 06:46] VITALS: BP 190/82
[2022-03-08 07:17] LABS: ALBUMIN 2.8 GM/DL (3.2-5.2); BILIRUBIN,TOTAL 0.4 MG/DL (0.2-1.0); CREATININE FOR GFR 1.35 MG/DL (0.70-1.30); GLOMERULAR FILTRATION RATE 56.5 (>49); POTASSIUM SERUM 3.9 MEQ/L (3.5-5.1); TOTAL PROTEIN 6.3 GM/DL (6.4-8.2)
[2022-03-08] MEDS: METOPROLOL SUCC *XL* 25MG TAB (TopROL *XL*) PO SCH (07:37)
[2022-03-08] MEDS ORDERED: ENTER DRUG NAME HERE (PATIENT'S OWN MED) SC SCH (09:00)
[2022-03-08 09:04] VITALS: BP 150/64
[2022-03-08] MEDS: INSULIN LISPRO (NovoLOG) PER UNIT SC SCH ×4 (09:07→21:00)
[2022-03-08] MEDS: DULoxetine 30MG CAPSULE (CYMBALTA) PO SCH (09:08)
[2022-03-08] MEDS: PREGABALIN 50 MG CAP (LYRICA) PO SCH ×2 (09:08→13:14)
[2022-03-08] MEDS: MULTIVITAMINS/MINERALS THERAP 1 TAB PO SCH (09:08)
[2022-03-08] MEDS: ASCORBIC ACID 250 MG TAB PO SCH (09:08)
[2022-03-08] MEDS: TAMSULOSIN 0.4 MG CAP PO SCH (09:08)
[2022-03-08] MEDS: CLOPIDOGREL 75 MG TAB PO SCH (09:08)
[2022-03-08] MEDS: FINASTERIDE 5MG TAB PO SCH (09:08)
[2022-03-08] MEDS: EZETIMIBE 10MG TABLET (ZETIA) PO SCH (09:08)
[2022-03-08] MEDS: BENZTROPINE 1 MG TAB PO SCH ×3 (09:08→22:44)
[2022-03-08] MEDS: PANTOPRAZOLE 40MG TAB (PROTONIX) PO SCH (09:08)
[2022-03-08] MEDS: **hydrALAZINE** 10 MG TAB PO ONE ×2 (09:09→09:48)
[2022-03-08] MEDS: NYSTATIN 100,000 UNITS/GM TOPICAL PWD 15 GM TOP SCH ×2 (09:09→22:44)
[2022-03-08] MEDS: FLUTICASONE PROP 0.05% NASAL SPRAY 16 GM (FLONASE) NARES SCH (09:09)
[2022-03-08] MEDS: LURASIDONE HCL 40MG TAB (LATUDA) PO SCH (17:30)
[2022-03-08] MEDS: ATORVASTATIN 20 MG TAB PO SCH (22:43)
[2022-03-08] MEDS: QUEtiapine FUMARATE 100 MG TAB PO SCH (22:43)
[2022-03-09] MEDS: HEPARIN SOD (PORCINE) 5000UNITS/ML 1ML VIAL/SYRINGE SQ SCH ×3 (05:30→20:53)
[2022-03-09] MEDS: LEVOTHYROXINE 100MCG TABLET (0.1MG) PO SCH (05:31)
[2022-03-09 05:48] LABS: HEMATOCRIT 35.9 % (42.0-52.0); HEMOGLOBIN 11.7 g/dl (13.5-17.5); MEAN CORPUSCULAR HEMOGLOBIN 27.5 pg (27.0-33.0); MEAN CORPUSCULAR HGB CONC 32.6 g/dl (32.0-36.5); MEAN CORPUSCULAR VOLUME 84.3 fl (80.0-96.0); PLATELET COUNT, AUTOMATED 245 10^3/uL (150-450); RED BLOOD COUNT 4.26 10^6/uL (4.30-6.10); WHITE BLOOD COUNT 5.5 10^3/uL (4.0-10.0)
[2022-03-09 06:00] VITALS: BP 139/71
[2022-03-09 06:26] LABS: ALBUMIN 2.9 GM/DL (3.2-5.2); BILIRUBIN,TOTAL 0.5 MG/DL (0.2-1.0); CALCIUM LEVEL 9.2 MG/DL (8.8-10.2); CREATININE FOR GFR 1.44 MG/DL (0.70-1.30); GLOMERULAR FILTRATION RATE 52.4 (>49); POTASSIUM SERUM 3.8 MEQ/L (3.5-5.1); TOTAL PROTEIN 6.3 GM/DL (6.4-8.2)
[2022-03-09] MEDS: INSULIN LISPRO (NovoLOG) PER UNIT SC SCH ×4 (08:39→20:44)
[2022-03-09] MEDS: MULTIVITAMINS/MINERALS THERAP 1 TAB PO SCH (08:41)
[2022-03-09] MEDS: PANTOPRAZOLE 40MG TAB (PROTONIX) PO SCH (08:41)
[2022-03-09] MEDS: BENZTROPINE 1 MG TAB PO SCH ×3 (08:41→20:52)
[2022-03-09] MEDS: ASCORBIC ACID 250 MG TAB PO SCH (08:41)
[2022-03-09] MEDS: PREGABALIN 50 MG CAP (LYRICA) PO SCH ×2 (08:41→12:10)
[2022-03-09] MEDS: CLOPIDOGREL 75 MG TAB PO SCH (08:41)
[2022-03-09] MEDS: FINASTERIDE 5MG TAB PO SCH (08:41)
[2022-03-09] MEDS: DULoxetine 30MG CAPSULE (CYMBALTA) PO SCH (08:41)
[2022-03-09] MEDS: EZETIMIBE 10MG TABLET (ZETIA) PO SCH (08:41)
[2022-03-09] MEDS: METOPROLOL SUCC *XL* 25MG TAB (TopROL *XL*) PO SCH (08:42)
[2022-03-09] MEDS: TAMSULOSIN 0.4 MG CAP PO SCH (08:42)
[2022-03-09] MEDS: NYSTATIN 100,000 UNITS/GM TOPICAL PWD 15 GM TOP SCH ×2 (08:43→20:52)
[2022-03-09] MEDS: FLUTICASONE PROP 0.05% NASAL SPRAY 16 GM (FLONASE) NARES SCH (08:43)
[2022-03-09] MEDS: LURASIDONE HCL 40MG TAB (LATUDA) PO SCH (17:14)
[2022-03-09] MEDS: QUEtiapine FUMARATE 100 MG TAB PO SCH (20:52)
[2022-03-09] MEDS: ATORVASTATIN 20 MG TAB PO SCH (20:52)
[2022-03-10] MEDS: LEVOTHYROXINE 100MCG TABLET (0.1MG) PO SCH (05:06)
[2022-03-10] MEDS: HEPARIN SOD (PORCINE) 5000UNITS/ML 1ML VIAL/SYRINGE SQ SCH ×3 (05:07→21:13)
[2022-03-10 06:00] VITALS: BP 155/72
[2022-03-10 06:04] LABS: HEMATOCRIT 37.7 % (42.0-52.0); HEMOGLOBIN 12.1 g/dl (13.5-17.5); MEAN CORPUSCULAR HEMOGLOBIN 27.4 pg (27.0-33.0); MEAN CORPUSCULAR HGB CONC 32.1 g/dl (32.0-36.5); MEAN CORPUSCULAR VOLUME 85.3 fl (80.0-96.0); PLATELET COUNT, AUTOMATED 272 10^3/uL (150-450); RED BLOOD COUNT 4.42 10^6/uL (4.30-6.10); WHITE BLOOD COUNT 6.5 10^3/uL (4.0-10.0)
[2022-03-10 06:45] LABS: ALBUMIN 2.9 GM/DL (3.2-5.2); BILIRUBIN,TOTAL 0.7 MG/DL (0.2-1.0); CREATININE FOR GFR 1.28 MG/DL (0.70-1.30); POTASSIUM SERUM 3.8 MEQ/L (3.5-5.1); TOTAL PROTEIN 6.3 GM/DL (6.4-8.2)
[2022-03-10 07:35] VITALS: BP 125/84
[2022-03-10] MEDS: FINASTERIDE 5MG TAB PO SCH (08:19)
[2022-03-10] MEDS: INSULIN LISPRO (NovoLOG) PER UNIT SC SCH ×4 (08:19→20:57)
[2022-03-10] MEDS: DULoxetine 30MG CAPSULE (CYMBALTA) PO SCH (08:20)
[2022-03-10] MEDS: ASCORBIC ACID 250 MG TAB PO SCH (08:20)
[2022-03-10] MEDS: TAMSULOSIN 0.4 MG CAP PO SCH ×2 (08:20→08:32)
[2022-03-10] MEDS: CLOPIDOGREL 75 MG TAB PO SCH (08:20)
[2022-03-10] MEDS: MULTIVITAMINS/MINERALS THERAP 1 TAB PO SCH (08:20)
[2022-03-10] MEDS: PANTOPRAZOLE 40MG TAB (PROTONIX) PO SCH (08:21)
[2022-03-10] MEDS: METOPROLOL SUCC *XL* 25MG TAB (TopROL *XL*) PO SCH (08:24)
[2022-03-10] MEDS: NYSTATIN 100,000 UNITS/GM TOPICAL PWD 15 GM TOP SCH ×2 (08:25→21:13)
[2022-03-10] MEDS: FLUTICASONE PROP 0.05% NASAL SPRAY 16 GM (FLONASE) NARES SCH ×2 (08:26→08:38)
[2022-03-10] MEDS: PREGABALIN 50 MG CAP (LYRICA) PO SCH ×2 (08:37→12:42)
[2022-03-10] MEDS: BENZTROPINE 1 MG TAB PO SCH ×3 (08:37→21:13)
[2022-03-10] MEDS: EZETIMIBE 10MG TABLET (ZETIA) PO SCH (08:37)
[2022-03-10 10:47] VITALS: BP 155/78
[2022-03-10] MEDS ORDERED: PREGABALIN 75 MG CAP(LYRICA) PO ONE (11:35)
[2022-03-10] MEDS ORDERED: PREGABALIN 50 MG CAP (LYRICA) PO ONE (12:35)
[2022-03-10] MEDS: ACETAMINOPHEN TAB 650MG DOSE (2X325MG) PO PRN (13:41)
[2022-03-10] MEDS: LURASIDONE HCL 40MG TAB (LATUDA) PO SCH (17:28)
[2022-03-10] MEDS: QUEtiapine FUMARATE 100 MG TAB PO SCH (21:13)
[2022-03-10] MEDS: ATORVASTATIN 20 MG TAB PO SCH (21:13)
[2022-03-11] MEDS: LEVOTHYROXINE 100MCG TABLET (0.1MG) PO SCH (05:09)
[2022-03-11] MEDS: HEPARIN SOD (PORCINE) 5000UNITS/ML 1ML VIAL/SYRINGE SQ SCH ×3 (05:10→20:42)
[2022-03-11 06:00] VITALS: BP 173/73
[2022-03-11 06:58] VITALS: BP 157/70
[2022-03-11] MEDS: EZETIMIBE 10MG TABLET (ZETIA) PO SCH (08:10)
[2022-03-11] MEDS: NYSTATIN 100,000 UNITS/GM TOPICAL PWD 15 GM TOP SCH ×2 (08:10→20:42)
[2022-03-11] MEDS: BENZTROPINE 1 MG TAB PO SCH ×3 (08:10→20:41)
[2022-03-11] MEDS: CLOPIDOGREL 75 MG TAB PO SCH (08:10)
[2022-03-11] MEDS: FLUTICASONE PROP 0.05% NASAL SPRAY 16 GM (FLONASE) NARES SCH (08:10)
[2022-03-11] MEDS: FINASTERIDE 5MG TAB PO SCH (08:11)
[2022-03-11] MEDS: PANTOPRAZOLE 40MG TAB (PROTONIX) PO SCH (08:11)
[2022-03-11] MEDS: PREGABALIN 50 MG CAP (LYRICA) PO SCH ×2 (08:11→13:07)
[2022-03-11] MEDS: DULoxetine 30MG CAPSULE (CYMBALTA) PO SCH (08:11)
[2022-03-11] MEDS: MULTIVITAMINS/MINERALS THERAP 1 TAB PO SCH (08:11)
[2022-03-11] MEDS: ASCORBIC ACID 250 MG TAB PO SCH (08:11)
[2022-03-11] MEDS: TAMSULOSIN 0.4 MG CAP PO SCH (08:11)
[2022-03-11] MEDS: INSULIN LISPRO (NovoLOG) PER UNIT SC SCH ×4 (08:12→20:41)
[2022-03-11] MEDS: METOPROLOL SUCC *XL* 25MG TAB (TopROL *XL*) PO SCH (08:14)
[2022-03-11] MEDS: ACETAMINOPHEN TAB 650MG DOSE (2X325MG) PO PRN (10:56)
[2022-03-11 13:54] VITALS: BP 148/78
[2022-03-11] MEDS: LURASIDONE HCL 40MG TAB (LATUDA) PO SCH (17:06)
[2022-03-11] MEDS: QUEtiapine FUMARATE 100 MG TAB PO SCH (20:41)
[2022-03-11] MEDS: ATORVASTATIN 20 MG TAB PO SCH (20:41)
[2022-03-12 05:13] VITALS: BP 157/74
[2022-03-12] MEDS: LEVOTHYROXINE 100MCG TABLET (0.1MG) PO SCH (05:29)
[2022-03-12] MEDS: HEPARIN SOD (PORCINE) 5000UNITS/ML 1ML VIAL/SYRINGE SQ SCH ×2 (05:30→13:13)
[2022-03-12] MEDS: INSULIN LISPRO (NovoLOG) PER UNIT SC SCH ×2 (08:41→13:13)
[2022-03-12] MEDS: TAMSULOSIN 0.4 MG CAP PO SCH (08:42)
[2022-03-12] MEDS: DULoxetine 30MG CAPSULE (CYMBALTA) PO SCH (08:42)
[2022-03-12] MEDS: ASCORBIC ACID 250 MG TAB PO SCH (08:42)
[2022-03-12] MEDS: PANTOPRAZOLE 40MG TAB (PROTONIX) PO SCH (08:42)
[2022-03-12] MEDS: BENZTROPINE 1 MG TAB PO SCH (08:42)
[2022-03-12] MEDS: PREGABALIN 50 MG CAP (LYRICA) PO SCH ×2 (08:42→13:12)
[2022-03-12] MEDS: NYSTATIN 100,000 UNITS/GM TOPICAL PWD 15 GM TOP SCH (08:42)
[2022-03-12] MEDS: EZETIMIBE 10MG TABLET (ZETIA) PO SCH (08:42)
[2022-03-12] MEDS: MULTIVITAMINS/MINERALS THERAP 1 TAB PO SCH (08:42)
[2022-03-12] MEDS: CLOPIDOGREL 75 MG TAB PO SCH (08:42)
[2022-03-12] MEDS: FLUTICASONE PROP 0.05% NASAL SPRAY 16 GM (FLONASE) NARES SCH (08:44)
[2022-03-12] MEDS: FINASTERIDE 5MG TAB PO SCH (08:45)
[2022-03-12 09:01] VITALS: BP 137/68
[2022-03-12] MEDS: METOPROLOL SUCC *XL* 25MG TAB (TopROL *XL*) PO SCH (09:01)
[2022-03-12] MEDS: traMADol 50 MG TAB PO PRN (09:01)
[2022-03-12 09:03] VITALS: BP 137/60
[2022-03-12] MEDS ORDERED: FLOM0.4C39 PO (09:49)
[2022-03-12] MEDS ORDERED: QUET100T2 PO (09:52)
[2022-03-12] MEDS ORDERED: MIRA3350 PO (10:23)
== END 2022-03-12 14:25 | disposition home or self-care (01) | DRG 92 ==
LOC: M ED 15:42 → M ED INP 15:43 → ENRESERV 23:06 → M MSPAV 23:49 → OBSVTOIN 03-05 10:20
PROVIDERS: ADMIT Internal Medicine; ATTEND Student in an Organized Health Care Education/Training Program
DX: R26.9 Unspecified abnormalities of gait and mobility (principal); Z68.41 Body mass index [BMI] 40.0-44.9, adult; M62.81 Muscle weakness (generalized); R42 Dizziness and giddiness; E11.22 Type 2 diabetes mellitus with diabetic chronic kidney disease; J44.9 Chronic obstructive pulmonary disease, unspecified; E03.9 Hypothyroidism, unspecified; E66.01 Morbid (severe) obesity due to excess calories; I12.9 Hypertensive chronic kidney disease with stage 1 through stage 4 chronic kidney disease, or unspecified chronic kidney disease; N18.30 Chronic kidney disease, stage 3 unspecified; I25.10 Atherosclerotic heart disease of native coronary artery without angina pectoris; I25.2 Old myocardial infarction; K21.9 Gastro-esophageal reflux disease without esophagitis; E78.5 Hyperlipidemia, unspecified; R53.81 Other malaise; R33.9 Retention of urine, unspecified; R13.10 Dysphagia, unspecified; N40.0 Benign prostatic hyperplasia without lower urinary tract symptoms; I87.8 Other specified disorders of veins; F31.9 Bipolar disorder, unspecified; F41.9 Anxiety disorder, unspecified; K59.00 Constipation, unspecified; G89.29 Other chronic pain; Z79.4 Long term (current) use of insulin; D64.9 Anemia, unspecified; Z79.899 Other long term (current) drug therapy; Z91.013 Allergy to seafood; Z88.0 Allergy status to penicillin; Z88.2 Allergy status to sulfonamides; Z88.6 Allergy status to analgesic agent; Z88.8 Allergy status to other drugs, medicaments and biological substances; Z95.2 Presence of prosthetic heart valve; Z98.41 Cataract extraction status, right eye; Z98.42 Cataract extraction status, left eye

== ENCOUNTER 2022-04-14 16:10 | Inpatient (IN) | payer OTHER, MEDICARE ==
[~2022-04-14] VITALS: Ht 170.2 cm; Wt 121.4 kg
[~2022-04-14 16:10] MED LIST changes: +KETO2CR TOP; +METO1TAB7 PO; +MIRA3350 PO; +QUET100T2 PO; +QUET300T2 PO; +SEMA1PEN2 SC; -SEMA1PEN2 SQ
[2022-04-14 19:52] LABS: BASO % 0.5 % (0.0-1.0); EOS # 0.3 10^3/uL (0.0-0.5); EOS % 4.2 % (0.0-3.0); HEMATOCRIT 37.3 % (42.0-52.0); HEMOGLOBIN 11.8 g/dl (13.5-17.5); LYMPH # 1.4 10^3/uL (1.5-5.0); LYMPH % 19.3 % (24.0-44.0); MEAN CORPUSCULAR HEMOGLOBIN 27.6 pg (27.0-33.0); MEAN CORPUSCULAR HGB CONC 31.6 g/dl (32.0-36.5); MEAN CORPUSCULAR VOLUME 87.1 fl (80.0-96.0); MONO # 0.5 10^3/uL (0.0-0.8); MONO % 6.1 % (2.0-8.0); NEUTROPHILS # 5.1 10^3/uL (1.5-8.5); NEUTROPHILS % 69.5 % (36.0-66.0); PLATELET COUNT, AUTOMATED 297 10^3/uL (150-450); RED BLOOD COUNT 4.28 10^6/uL (4.30-6.10); WHITE BLOOD COUNT 7.3 10^3/uL (4.0-10.0)
[2022-04-14 20:17] LABS: CHLORIDE LEVEL 100 MMOL/L (98-107); POTASSIUM SERUM 3.5 MMOL/L (3.5-5.1); SODIUM LEVEL 141 MMOL/L (136-145)
[2022-04-14 20:18] LABS: CARBON DIOXIDE LEVEL 31 MMOL/L (20-31)
[2022-04-14 20:23] LABS: BLOOD UREA NITROGEN 23 MG/DL (9-23)
[2022-04-14 20:24] LABS: ALBUMIN 3.3 G/DL (3.2-5.2); CALCIUM LEVEL 8.8 MG/DL (8.3-10.6); GLUCOSE, FASTING 156 MG/DL (74-106)
[2022-04-14 20:26] LABS: CREATININE FOR GFR 1.27 MG/DL (0.70-1.30); GLOMERULAR FILTRATION RATE > 60.0 (>49)
[2022-04-14 20:30] LABS: ALKALINE PHOSPHATASE 114 U/L (46-116); LIPASE 17 U/L (12-53)
[2022-04-14 20:31] LABS: AST/SGOT 18 U/L (<34)
[2022-04-14 20:32] LABS: ALT/SGPT 20 U/L (7.0-40); BILIRUBIN,DIRECT 0.2 MG/DL (<0.4); BILIRUBIN,TOTAL 0.5 MG/DL (0.3-1.2); TOTAL PROTEIN 6.8 G/DL (5.7-8.2)
[2022-04-14] MEDS ORDERED: QUEtiapine FUMARATE 50MG TAB PO SCH (21:00)
[2022-04-14 21:17] LABS: RSV AMPLIFICATION NEGATIVE (NEGATIVE)
[2022-04-14] MEDS ORDERED: FURO40TA2 PO (23:46)
[2022-04-14] MEDS ORDERED: QUET300T2 PO (23:46)
[2022-04-14] MEDS ORDERED: XARE20TA PO (23:46)
[2022-04-14] MEDS ORDERED: DICL20GE TOP (23:46)
[2022-04-14] MEDS ORDERED: VITA100093 PO (23:46)
[2022-04-14] MEDS ORDERED: PREG25CA2 PO (23:46)
[2022-04-14] MEDS ORDERED: HOME MED LIST COMPLETE! XX SCH (23:50)
[2022-04-15] MEDS ORDERED: DEXTROSE 50% 50 ML SYRINGE IV PRN (01:35)
[2022-04-15] MEDS ORDERED: GLUCAGON INJ 1MG VIAL SC PRN (01:35)
[2022-04-15] MEDS ORDERED: GLUCOSE 4GM CHEW TABLET PO PRN (01:35)
[2022-04-15] MEDS: LEVOTHYROXINE 100MCG TABLET (0.1MG) PO SCH (06:25)
[2022-04-15] MEDS: INSULIN LISPRO (NovoLOG) PER UNIT SC SCH ×4 (08:42→20:34)
[2022-04-15] MEDS: CLOPIDOGREL 75 MG TAB PO SCH (08:42)
[2022-04-15] MEDS: FUROSEMIDE 40 MG TAB PO SCH (08:42)
[2022-04-15] MEDS: BENZTROPINE 1 MG TAB PO SCH ×3 (08:42→21:58)
[2022-04-15] MEDS: ASCORBIC ACID 250 MG TAB PO SCH (08:43)
[2022-04-15] MEDS: PREGABALIN 25 MG CAP (LYRICA) PO SCH ×2 (08:43→20:56)
[2022-04-15] MEDS: VITAMIN D 1,000 INTERNATIONAL UNITS TABLET PO SCH (08:43)
[2022-04-15] MEDS: PANTOPRAZOLE 40MG TAB (PROTONIX) PO SCH (08:43)
[2022-04-15] MEDS: METOPROLOL SUCC *XL* 25MG TAB (TopROL *XL*) PO SCH (08:43)
[2022-04-15] MEDS: DULoxetine 30MG CAPSULE (CYMBALTA) PO SCH (08:43)
[2022-04-15] MEDS: MULTIVITAMINS/MINERALS THERAP 1 TAB PO SCH (08:43)
[2022-04-15] MEDS ORDERED: LEVEMIR (INSULIN DETEMIR) 1 UNITS/0.01ML SC SCH (09:00)
[2022-04-15 09:30] LABS: BASO # 0.1 10^3/uL (0.0-0.2); BASO % 0.7 % (0.0-1.0); EOS # 0.3 10^3/uL (0.0-0.5); EOS % 4.5 % (0.0-3.0); HEMOGLOBIN 11.7 g/dl (13.5-17.5); LYMPH # 1.2 10^3/uL (1.5-5.0); LYMPH % 16.9 % (24.0-44.0); MEAN CORPUSCULAR HEMOGLOBIN 27.8 pg (27.0-33.0); MEAN CORPUSCULAR HGB CONC 32.5 g/dl (32.0-36.5); MEAN CORPUSCULAR VOLUME 85.5 fl (80.0-96.0); MONO # 0.4 10^3/uL (0.0-0.8); MONO % 5.8 % (2.0-8.0); NEUTROPHILS # 5.2 10^3/uL (1.5-8.5); NEUTROPHILS % 71.8 % (36.0-66.0); PLATELET COUNT, AUTOMATED 291 10^3/uL (150-450); RED BLOOD COUNT 4.21 10^6/uL (4.30-6.10); WHITE BLOOD COUNT 7.2 10^3/uL (4.0-10.0)
[2022-04-15 10:42] LABS: MAGNESIUM LEVEL 1.9 MG/DL (1.8-2.4)
[2022-04-15 10:50] LABS: ALBUMIN 3.3 G/DL (3.2-5.2); ALKALINE PHOSPHATASE 112 U/L (46-116); ALT/SGPT 18 U/L (7.0-40); AST/SGOT 19 U/L (<34); BILIRUBIN,TOTAL 0.8 MG/DL (0.3-1.2); BLOOD UREA NITROGEN 18 MG/DL (9-23); CALCIUM LEVEL 8.4 MG/DL (8.3-10.6); CARBON DIOXIDE LEVEL 29 MMOL/L (20-31); CHLORIDE LEVEL 103 MMOL/L (98-107); CREATININE FOR GFR 1.19 MG/DL (0.70-1.30); GLOMERULAR FILTRATION RATE > 60.0 (>49); GLUCOSE, FASTING 160 MG/DL (74-106); POTASSIUM SERUM 3.8 MMOL/L (3.5-5.1); SODIUM LEVEL 141 MMOL/L (136-145); TOTAL PROTEIN 6.6 G/DL (5.7-8.2)
[2022-04-15 11:11] LABS: HEMOGLOBIN A1c 6.8 % (4.0-6.0)
[2022-04-15 11:49] LABS: ERYTHROCYTE SEDIMENTATION RATE 43 mm/hr (0-20)
[2022-04-15] MEDS ORDERED: amLODIPine 5 MG TAB PO ONE (14:00)
[2022-04-15] MEDS: ACETAMINOPHEN 500 MG TAB PO PRN (15:18)
[2022-04-15 16:40] VITALS: BP 166/73
[2022-04-15] MEDS ORDERED: LURASIDONE HCL 40MG TAB (LATUDA) PO SCH (18:00)
[2022-04-15] MEDS: RIVAROXABAN 20MG TAB (XARELTO) PO SCH (18:48)
[2022-04-15] MEDS: ATORVASTATIN 20 MG TAB PO SCH (20:56)
[2022-04-15] MEDS: FINASTERIDE 5MG TAB PO SCH (20:56)
[2022-04-15] MEDS: QUEtiapine FUMARATE 100 MG TAB PO SCH (20:56)
[2022-04-15] MEDS: EZETIMIBE 10MG TABLET (ZETIA) PO SCH (20:56)
[2022-04-15] MEDS: traMADol 50 MG TAB PO PRN (20:58)
[2022-04-15 22:00] VITALS: BP 158/77
[2022-04-15 22:55] VITALS: BP_SYST 158; BP_SYST 162; BP_SYST 174; BP_DIAS 74; BP_DIAS 78
[2022-04-16 05:12] VITALS: BP 171/71
[2022-04-16] MEDS: LEVOTHYROXINE 100MCG TABLET (0.1MG) PO SCH (06:12)
[2022-04-16 06:20] LABS: HEMATOCRIT 36.7 % (42.0-52.0); MEAN CORPUSCULAR HGB CONC 32.7 g/dl (32.0-36.5); MEAN CORPUSCULAR VOLUME 85.7 fl (80.0-96.0); PLATELET COUNT, AUTOMATED 284 10^3/uL (150-450); RED BLOOD COUNT 4.28 10^6/uL (4.30-6.10); WHITE BLOOD COUNT 7.1 10^3/uL (4.0-10.0)
[2022-04-16 06:30] VITALS: BP_SYST 146; BP_SYST 158; BP_SYST 160; BP_DIAS 72; BP_DIAS 78; BP_DIAS 82
[2022-04-16 06:42] LABS: MAGNESIUM LEVEL 1.9 MG/DL (1.8-2.4)
[2022-04-16 06:44] LABS: BLOOD UREA NITROGEN 18 MG/DL (9-23); CARBON DIOXIDE LEVEL 28 MMOL/L (20-31); CHLORIDE LEVEL 102 MMOL/L (98-107); CREATININE FOR GFR 1.25 MG/DL (0.70-1.30); GLOMERULAR FILTRATION RATE > 60.0 (>49); GLUCOSE, FASTING 167 MG/DL (74-106); PHOSPHORUS LEVEL 3.6 MG/DL (2.4-5.1); POTASSIUM SERUM 3.4 MMOL/L (3.5-5.1); SODIUM LEVEL 141 MMOL/L (136-145)
[2022-04-16] MEDS ORDERED: POTASSIUM CHLORIDE 10MEQ SR TABLET PO ONE (07:30)
[2022-04-16] MEDS: PREGABALIN 25 MG CAP (LYRICA) PO SCH ×2 (09:00→19:52)
[2022-04-16] MEDS: ASCORBIC ACID 250 MG TAB PO SCH (09:01)
[2022-04-16] MEDS: DULoxetine 30MG CAPSULE (CYMBALTA) PO SCH (09:01)
[2022-04-16] MEDS: INSULIN LISPRO (NovoLOG) PER UNIT SC SCH ×4 (09:01→20:57)
[2022-04-16] MEDS: BENZTROPINE 1 MG TAB PO SCH ×3 (09:01→19:52)
[2022-04-16] MEDS: CLOPIDOGREL 75 MG TAB PO SCH (09:01)
[2022-04-16] MEDS: VITAMIN D 1,000 INTERNATIONAL UNITS TABLET PO SCH (09:01)
[2022-04-16] MEDS: MULTIVITAMINS/MINERALS THERAP 1 TAB PO SCH (09:01)
[2022-04-16] MEDS: PANTOPRAZOLE 40MG TAB (PROTONIX) PO SCH (09:02)
[2022-04-16] MEDS: FUROSEMIDE 40 MG TAB PO SCH (09:02)
[2022-04-16] MEDS: amLODIPine 5 MG TAB PO SCH (09:03)
[2022-04-16] MEDS: METOPROLOL SUCC *XL* 25MG TAB (TopROL *XL*) PO SCH (09:03)
[2022-04-16 16:30] VITALS: BP_SYST 118; BP_SYST 126; BP_SYST 167; BP_DIAS 53; BP_DIAS 76; BP_DIAS 95
[2022-04-16] MEDS: ACETAMINOPHEN 500 MG TAB PO PRN (17:45)
[2022-04-16] MEDS: RIVAROXABAN 20MG TAB (XARELTO) PO SCH (17:45)
[2022-04-16] MEDS: LURASIDONE 20 MG TAB (LATUDA) PO SCH (17:45)
[2022-04-16] MEDS: QUEtiapine FUMARATE 100 MG TAB PO SCH (19:52)
[2022-04-16] MEDS: EZETIMIBE 10MG TABLET (ZETIA) PO SCH (19:52)
[2022-04-16] MEDS: SENOKOT S TAB PO PRN (19:52)
[2022-04-16] MEDS: ATORVASTATIN 20 MG TAB PO SCH (19:52)
[2022-04-16] MEDS: FINASTERIDE 5MG TAB PO SCH (19:52)
[2022-04-16] MEDS: traMADol 50 MG TAB PO PRN (19:53)
[2022-04-16 20:00] VITALS: BP 157/71
[2022-04-16 20:05] VITALS: BP_SYST 141; BP_SYST 155; BP_SYST 158; BP_DIAS 63; BP_DIAS 65
[2022-04-17] VITALS (8 sets, daily range): BP systolic 121–178; BP diastolic 62–92
[2022-04-17] MEDS: LEVOTHYROXINE 100MCG TABLET (0.1MG) PO SCH (05:23)
[2022-04-17] MEDS ORDERED: NS 1,000 ML IV SCH (05:50)
[2022-04-17 06:30] LABS: MAGNESIUM LEVEL 1.8 MG/DL (1.8-2.4)
[2022-04-17 06:31] LABS: CALCIUM LEVEL 9.5 MG/DL (8.3-10.6); CREATININE FOR GFR 1.31 MG/DL (0.70-1.30); GLOMERULAR FILTRATION RATE 58.5 (>49); PHOSPHORUS LEVEL 4.3 MG/DL (2.4-5.1); POTASSIUM SERUM 3.8 MMOL/L (3.5-5.1)
[2022-04-17] MEDS: INSULIN LISPRO (NovoLOG) PER UNIT SC SCH ×4 (08:19→20:12)
[2022-04-17] MEDS: METOPROLOL SUCC *XL* 25MG TAB (TopROL *XL*) PO SCH (09:32)
[2022-04-17] MEDS: ACETAMINOPHEN 500 MG TAB PO PRN ×2 (09:34→16:04)
[2022-04-17] MEDS: VITAMIN D 1,000 INTERNATIONAL UNITS TABLET PO SCH (09:35)
[2022-04-17] MEDS: DULoxetine 30MG CAPSULE (CYMBALTA) PO SCH (09:35)
[2022-04-17] MEDS: MULTIVITAMINS/MINERALS THERAP 1 TAB PO SCH (09:35)
[2022-04-17] MEDS: CLOPIDOGREL 75 MG TAB PO SCH (09:35)
[2022-04-17] MEDS: ASCORBIC ACID 250 MG TAB PO SCH (09:36)
[2022-04-17] MEDS: PANTOPRAZOLE 40MG TAB (PROTONIX) PO SCH (09:36)
[2022-04-17] MEDS: BENZTROPINE 1 MG TAB PO SCH ×3 (09:36→20:22)
[2022-04-17] MEDS: FUROSEMIDE 40 MG TAB PO SCH (09:36)
[2022-04-17] MEDS: amLODIPine 5 MG TAB PO SCH (09:36)
[2022-04-17] MEDS: SENOKOT S TAB PO PRN ×2 (09:37→20:33)
[2022-04-17] MEDS: PREGABALIN 25 MG CAP (LYRICA) PO SCH ×2 (09:37→20:22)
[2022-04-17] MEDS ORDERED: MAGNESIUM OXIDE 400MG TAB (MAG-OX) PO ONE (14:30)
[2022-04-17] MEDS ORDERED: POTASSIUM CHLORIDE 10MEQ SR TABLET PO ONE (15:00)
[2022-04-17] MEDS ORDERED: NS 500 ML IV ONE (15:20)
[2022-04-17] MEDS: RIVAROXABAN 20MG TAB (XARELTO) PO SCH (17:43)
[2022-04-17] MEDS: LURASIDONE 20 MG TAB (LATUDA) PO SCH (17:43)
[2022-04-17] MEDS: ATORVASTATIN 20 MG TAB PO SCH (20:21)
[2022-04-17] MEDS: traMADol 50 MG TAB PO PRN (20:21)
[2022-04-17] MEDS: EZETIMIBE 10MG TABLET (ZETIA) PO SCH (20:22)
[2022-04-17] MEDS: FINASTERIDE 5MG TAB PO SCH (20:22)
[2022-04-17] MEDS: QUEtiapine FUMARATE 100 MG TAB PO SCH (20:22)
[2022-04-18] MEDS: LEVOTHYROXINE 100MCG TABLET (0.1MG) PO SCH (05:56)
[2022-04-18 06:24] VITALS: BP_SYST 122; BP_SYST 158; BP_SYST 164; BP_DIAS 66; BP_DIAS 74; BP_DIAS 80
[2022-04-18 07:30] LABS: MAGNESIUM LEVEL 1.9 MG/DL (1.8-2.4)
[2022-04-18 07:32] LABS: BLOOD UREA NITROGEN 20 MG/DL (9-23); CALCIUM LEVEL 9.3 MG/DL (8.3-10.6); CARBON DIOXIDE LEVEL 28 MMOL/L (20-31); CHLORIDE LEVEL 100 MMOL/L (98-107); CREATININE FOR GFR 1.21 MG/DL (0.70-1.30); GLOMERULAR FILTRATION RATE > 60.0 (>49); GLUCOSE, FASTING 174 MG/DL (74-106); PHOSPHORUS LEVEL 4.2 MG/DL (2.4-5.1); POTASSIUM SERUM 3.9 MMOL/L (3.5-5.1); SODIUM LEVEL 139 MMOL/L (136-145)
[2022-04-18] MEDS: ASCORBIC ACID 250 MG TAB PO SCH (08:13)
[2022-04-18] MEDS: PREGABALIN 25 MG CAP (LYRICA) PO SCH ×2 (08:13→20:08)
[2022-04-18] MEDS: VITAMIN D 1,000 INTERNATIONAL UNITS TABLET PO SCH (08:13)
[2022-04-18] MEDS: MULTIVITAMINS/MINERALS THERAP 1 TAB PO SCH (08:13)
[2022-04-18] MEDS: BENZTROPINE 1 MG TAB PO SCH ×3 (08:13→20:07)
[2022-04-18] MEDS: PANTOPRAZOLE 40MG TAB (PROTONIX) PO SCH (08:13)
[2022-04-18] MEDS: INSULIN LISPRO (NovoLOG) PER UNIT SC SCH ×4 (08:13→20:08)
[2022-04-18] MEDS: DULoxetine 30MG CAPSULE (CYMBALTA) PO SCH (08:13)
[2022-04-18] MEDS: CLOPIDOGREL 75 MG TAB PO SCH (08:13)
[2022-04-18] MEDS: METOPROLOL SUCC *XL* 25MG TAB (TopROL *XL*) PO SCH (08:14)
[2022-04-18 14:00] VITALS: BP 150/64
[2022-04-18] MEDS: ACETAMINOPHEN 500 MG TAB PO PRN (15:41)
[2022-04-18 16:23] VITALS: BP_SYST 128; BP_SYST 139; BP_SYST 144; BP_DIAS 56; BP_DIAS 66; BP_DIAS 73
[2022-04-18] MEDS: RIVAROXABAN 20MG TAB (XARELTO) PO SCH (17:34)
[2022-04-18] MEDS: LURASIDONE 20 MG TAB (LATUDA) PO SCH (17:34)
[2022-04-18] MEDS: traMADol 50 MG TAB PO PRN (20:07)
[2022-04-18] MEDS: QUEtiapine FUMARATE 100 MG TAB PO SCH (20:07)
[2022-04-18] MEDS: ATORVASTATIN 20 MG TAB PO SCH (20:08)
[2022-04-18] MEDS: EZETIMIBE 10MG TABLET (ZETIA) PO SCH (20:08)
[2022-04-18] MEDS: FINASTERIDE 5MG TAB PO SCH (20:08)
[2022-04-18 20:17] VITALS: BP 151/54
[2022-04-19] MEDS: LEVOTHYROXINE 100MCG TABLET (0.1MG) PO SCH (05:26)
[2022-04-19 05:55] VITALS: BP 147/63
[2022-04-19] MEDS: ASCORBIC ACID 250 MG TAB PO SCH (08:11)
[2022-04-19] MEDS: INSULIN LISPRO (NovoLOG) PER UNIT SC SCH ×2 (08:11→11:49)
[2022-04-19 08:12] VITALS: BP 153/63
[2022-04-19] MEDS: ACETAMINOPHEN 500 MG TAB PO PRN (08:12)
[2022-04-19] MEDS: DULoxetine 30MG CAPSULE (CYMBALTA) PO SCH (08:12)
[2022-04-19] MEDS: MULTIVITAMINS/MINERALS THERAP 1 TAB PO SCH (08:12)
[2022-04-19] MEDS: VITAMIN D 1,000 INTERNATIONAL UNITS TABLET PO SCH (08:12)
[2022-04-19] MEDS: METOPROLOL SUCC *XL* 25MG TAB (TopROL *XL*) PO SCH (08:12)
[2022-04-19] MEDS: CLOPIDOGREL 75 MG TAB PO SCH (08:12)
[2022-04-19] MEDS: PANTOPRAZOLE 40MG TAB (PROTONIX) PO SCH (08:12)
[2022-04-19] MEDS: PREGABALIN 25 MG CAP (LYRICA) PO SCH (08:12)
[2022-04-19] MEDS: BENZTROPINE 1 MG TAB PO SCH (08:13)
[2022-04-19] MEDS ORDERED: QUET100T2 PO ×2 (10:23→10:26)
[2022-04-19] MEDS ORDERED: LATU1TAB PO (10:23)
[2022-04-19] MEDS ORDERED: SERO1TAB2 PO (10:25)
[2022-04-19] MEDS ORDERED: FURO20TA2 PO (10:35)
== END 2022-04-19 15:22 | disposition home health service (06) | DRG 556 ==
LOC: M ED 16:10 → EDBD 16:10 → M ED INP 23:55 → OBSVTOIN 04-15 06:43 → ENRESERV 04-15 14:47 → M MSPAV 04-15 16:40
PROVIDERS: ADMIT Family Medicine; ATTEND Internal Medicine
DX: R26.2 Difficulty in walking, not elsewhere classified (principal); E66.01 Morbid (severe) obesity due to excess calories; N18.9 Chronic kidney disease, unspecified; E11.22 Type 2 diabetes mellitus with diabetic chronic kidney disease; D64.9 Anemia, unspecified; I12.9 Hypertensive chronic kidney disease with stage 1 through stage 4 chronic kidney disease, or unspecified chronic kidney disease; E78.5 Hyperlipidemia, unspecified; I25.10 Atherosclerotic heart disease of native coronary artery without angina pectoris; E03.9 Hypothyroidism, unspecified; K21.9 Gastro-esophageal reflux disease without esophagitis; J44.9 Chronic obstructive pulmonary disease, unspecified; I25.2 Old myocardial infarction; F41.9 Anxiety disorder, unspecified; F32.A Depression, unspecified; Z86.718 Personal history of other venous thrombosis and embolism; I95.1 Orthostatic hypotension; Z79.899 Other long term (current) drug therapy; Z79.4 Long term (current) use of insulin; Z91.013 Allergy to seafood; Z88.0 Allergy status to penicillin; Z88.2 Allergy status to sulfonamides; Z88.6 Allergy status to analgesic agent; I87.8 Other specified disorders of veins; Z95.2 Presence of prosthetic heart valve; Z98.41 Cataract extraction status, right eye; Z98.42 Cataract extraction status, left eye

== ENCOUNTER 2022-09-21 16:21 | Inpatient (IN) | payer OTHER, MEDICARE ==
[~2022-09-21] VITALS: Ht 170.2 cm; Wt 125.6 kg
[~2022-09-21 16:21] MED LIST changes: -BENZ-52 PO; +BENZ1TAB5 PO; +DICL20GE TOP; +LATU1TAB PO; +PREG25CA2 PO; +SERO1TAB2 PO; +VITA100093 PO
[2022-09-21] MEDS ORDERED: traMADol 50 MG TAB PO ONE (17:30)
[2022-09-21 18:43] LABS: BASO # 0.1 10^3/uL (0.0-0.2); BASO % 0.7 % (0.0-1.0); EOS # 0.8 10^3/uL (0.0-0.5); EOS % 7.9 % (0.0-3.0); HEMATOCRIT 32.6 % (42.0-52.0); HEMOGLOBIN 10.7 g/dl (13.5-17.5); LYMPH # 1.1 10^3/uL (1.5-5.0); LYMPH % 10.7 % (24.0-44.0); MEAN CORPUSCULAR HEMOGLOBIN 30.6 pg (27.0-33.0); MEAN CORPUSCULAR HGB CONC 32.8 g/dl (32.0-36.5); MEAN CORPUSCULAR VOLUME 93.1 fl (80.0-96.0); MONO # 0.6 10^3/uL (0.0-0.8); MONO % 6.4 % (2.0-8.0); NEUTROPHILS # 7.4 10^3/uL (1.5-8.5); NEUTROPHILS % 73.7 % (36.0-66.0); PLATELET COUNT, AUTOMATED 284 10^3/uL (150-450); WHITE BLOOD COUNT 10.1 10^3/uL (4.0-10.0)
[2022-09-21 18:55] LABS: INR 1.26; PROTHROMBIN TIME 16.1 SECONDS (12.5-14.5)
[2022-09-21 18:56] LABS: PARTIAL THROMBOPLASTIN TIME 34.8 SECONDS (24.8-34.2)
[2022-09-21] MEDS ORDERED: ACETAMINOPHEN 500 MG TAB PO ONE (20:25)
[2022-09-21 22:52] LABS: BLOOD UREA NITROGEN 13 MG/DL (9-23); CARBON DIOXIDE LEVEL 23 MMOL/L (20-31); CHLORIDE LEVEL 113 MMOL/L (98-107); CREATININE FOR GFR 0.99 MG/DL (0.70-1.30); GLOMERULAR FILTRATION RATE > 60.0 (>49); GLUCOSE, FASTING 111 MG/DL (74-106); POTASSIUM SERUM 3.2 MMOL/L (3.5-5.1); SODIUM LEVEL 140 MMOL/L (136-145)
[2022-09-21 23:05] LABS: RSV AMPLIFICATION NEGATIVE (NEGATIVE)
[2022-09-21] MEDS ORDERED: ACETAMINOPHEN TAB 650MG DOSE (2X325MG) PO PRN (23:30)
[2022-09-21 23:53] LABS: PTH INTACT 45.4 PG/ML (18.5-88.0)
[2022-09-22] MEDS ORDERED: SEMA2PEN SQ (00:02)
[2022-09-22] MEDS ORDERED: LISI20TA33 PO (00:02)
[2022-09-22] MEDS ORDERED: FURO20TA2 PO (00:02)
[2022-09-22] MEDS ORDERED: QUET100T2 PO (00:02)
[2022-09-22] MEDS ORDERED: LATU1TAB PO (00:02)
[2022-09-22] MEDS ORDERED: HOME MED LIST COMPLETE! XX SCH (00:05)
[2022-09-22 00:07] LABS: ALBUMIN 2.3 G/DL (3.2-5.2); ALKALINE PHOSPHATASE 77 U/L (46-116); ALT/SGPT 16 U/L (7.0-40); AST/SGOT 14 U/L (<34); BILIRUBIN,DIRECT 0.1 MG/DL (<0.4); BILIRUBIN,TOTAL 0.3 MG/DL (0.3-1.2); FREE T4 0.65 NG/DL (0.89-1.76); MAGNESIUM LEVEL 1.4 MG/DL (1.8-2.4); THYROID STIMULATING HORMONE 10.708 uIU/ML (0.55-4.78); TOTAL 25(OH) VITAMIN D 39.9 NG/ML (20.0-100.0); TOTAL PROTEIN 4.9 G/DL (5.7-8.2)
[2022-09-22 00:54] LABS: VENOUS BASE EXCESS -0.3 (-2.0-2.0); VENOUS HCO3 24.6 MMOL/L (23.0-27.0); VENOUS O2 SATURATION 72.8 % (60.0-80.0); VENOUS PARTIAL PRESSURE CO2 41.1 mmHg (38.0-50.0); VENOUS PARTIAL PRESSURE O2 38.2 mmHg (30.0-50.0); VENOUS PH 7.395 UNITS (7.330-7.430); VENOUS STANDARD HCO3 23.8 MMOL/L; VENOUS TOTAL CO2 25.9 MMOL/L (24.0-28.0)
[2022-09-22 01:09] VITALS: BP 139/73
[2022-09-22] MEDS ORDERED: GLUCOSE 4GM CHEW TABLET PO PRN (01:30)
[2022-09-22] MEDS ORDERED: DEXTROSE 50% 50ML SYRINGE IV PRN (01:30)
[2022-09-22] MEDS ORDERED: SENOKOT S TAB PO PRN (01:30)
[2022-09-22] MEDS ORDERED: GLUCAGON INJ 1MG VIAL SC PRN (01:30)
[2022-09-22] MEDS ORDERED: POTASSIUM CHLORIDE 10MEQ SR TABLET PO ONE (01:55)
[2022-09-22] MEDS: traMADol 50 MG TAB PO PRN ×2 (02:00→17:56)
[2022-09-22] MEDS: MAG SULF 1GM/100ML (MAG RUN) 1 GM in IV 1 EA IV SCH ×2 (02:11→03:08)
[2022-09-22 06:00] VITALS: BP 147/62
[2022-09-22] MEDS: LEVOTHYROXINE 12.5MCG PER 1/2 TAB (0.0125MG) PO SCH (06:03)
[2022-09-22] MEDS: LEVOTHYROXINE 100MCG TABLET (0.1MG) PO SCH (06:04)
[2022-09-22 06:13] LABS: HEMOGLOBIN 10.1 g/dl (13.5-17.5); MEAN CORPUSCULAR HEMOGLOBIN 30.1 pg (27.0-33.0); MEAN CORPUSCULAR HGB CONC 32.6 g/dl (32.0-36.5); MEAN CORPUSCULAR VOLUME 92.3 fl (80.0-96.0); PLATELET COUNT, AUTOMATED 276 10^3/uL (150-450); RED BLOOD COUNT 3.36 10^6/uL (4.30-6.10); WHITE BLOOD COUNT 7.2 10^3/uL (4.0-10.0)
[2022-09-22 06:49] LABS: ALBUMIN 2.8 G/DL (3.2-5.2); ALKALINE PHOSPHATASE 103 U/L (46-116); ALT/SGPT 16 U/L (7.0-40); AST/SGOT 17 U/L (<34); BILIRUBIN,TOTAL 0.4 MG/DL (0.3-1.2); BLOOD UREA NITROGEN 13 MG/DL (9-23); CALCIUM LEVEL 8.1 MG/DL (8.3-10.6); CARBON DIOXIDE LEVEL 26 MMOL/L (20-31); CHLORIDE LEVEL 104 MMOL/L (98-107); GLOMERULAR FILTRATION RATE > 60.0 (>49); GLUCOSE, FASTING 142 MG/DL (74-106); MAGNESIUM LEVEL 2.4 MG/DL (1.8-2.4); SODIUM LEVEL 139 MMOL/L (136-145); TOTAL PROTEIN 5.9 G/DL (5.7-8.2)
[2022-09-22 08:50] VITALS: BP_SYST 147; BP_SYST 151; BP_SYST 174; BP_DIAS 60; BP_DIAS 69; BP_DIAS 86
[2022-09-22] MEDS: INSULIN LISPRO (NovoLOG) PER UNIT SC SCH ×4 (08:57→20:26)
[2022-09-22] MEDS: LEVEMIR (INSULIN DETEMIR) 1 UNITS/0.01ML SC SCH ×2 (08:57→20:33)
[2022-09-22] MEDS: PANTOPRAZOLE 40MG TAB (PROTONIX) PO SCH (08:58)
[2022-09-22] MEDS: NYSTATIN CREAM 15GM TOP SCH ×2 (08:58→20:33)
[2022-09-22] MEDS: BENZTROPINE 1 MG TAB PO SCH ×3 (08:58→20:32)
[2022-09-22] MEDS: METOPROLOL SUCC *XL* 25MG TAB (TopROL *XL*) PO SCH (08:58)
[2022-09-22] MEDS: MULTIVITAMINS/MINERALS THERAP 1 TAB PO SCH (08:58)
[2022-09-22] MEDS: ASCORBIC ACID 250 MG TAB PO SCH (08:59)
[2022-09-22] MEDS: VITAMIN D 1,000 INTERNATIONAL UNITS TABLET PO SCH (08:59)
[2022-09-22] MEDS: CLOPIDOGREL 75 MG TAB PO SCH (08:59)
[2022-09-22] MEDS: DULoxetine 30MG CAPSULE (CYMBALTA) PO SCH (08:59)
[2022-09-22] MEDS ORDERED: LEVEMIR (INSULIN DETEMIR) 1 UNITS/0.01ML SC SCH (09:00)
[2022-09-22] MEDS: PREGABALIN 25 MG CAP (LYRICA) PO SCH ×2 (09:02→20:32)
[2022-09-22 10:05] LABS: CORTISOL AM 10.9 UG/DL (4.3-22.4)
[2022-09-22 10:09] LABS: THYROID PEROXIDASE ANTIBODY < 28.0 U/ML (<60.0)
[2022-09-22 14:00] VITALS: BP 148/63
[2022-09-22] MEDS: FINASTERIDE 5MG TAB PO SCH (20:32)
[2022-09-22] MEDS: ATORVASTATIN 20 MG TAB PO SCH (20:32)
[2022-09-22] MEDS: QUEtiapine FUMARATE 100 MG TAB PO SCH (20:32)
[2022-09-22] MEDS: RIVAROXABAN 20MG TAB (XARELTO) PO SCH (20:32)
[2022-09-22] MEDS: LURASIDONE 20 MG TAB (LATUDA) PO SCH (20:32)
[2022-09-22] MEDS: EZETIMIBE 10MG TABLET (ZETIA) PO SCH (20:32)
[2022-09-22] MEDS: FUROSEMIDE 20 MG TAB PO SCH (20:32)
[2022-09-22] MEDS: DIMETHICONE 2% OINTMENT(VANICREAM) 70GM TUBE TOP SCH (20:37)
[2022-09-23] MEDS: LEVOTHYROXINE 100MCG TABLET (0.1MG) PO SCH (05:14)
[2022-09-23] MEDS: LEVOTHYROXINE 12.5MCG PER 1/2 TAB (0.0125MG) PO SCH (05:14)
[2022-09-23 05:29] VITALS: BP 148/62
[2022-09-23] MEDS: PREGABALIN 25 MG CAP (LYRICA) PO SCH ×2 (08:27→20:35)
[2022-09-23] MEDS: PANTOPRAZOLE 40MG TAB (PROTONIX) PO SCH (08:28)
[2022-09-23] MEDS: VITAMIN D 1,000 INTERNATIONAL UNITS TABLET PO SCH (08:28)
[2022-09-23] MEDS: BENZTROPINE 1 MG TAB PO SCH ×3 (08:28→20:38)
[2022-09-23] MEDS: MULTIVITAMINS/MINERALS THERAP 1 TAB PO SCH (08:28)
[2022-09-23] MEDS: METOPROLOL SUCC *XL* 25MG TAB (TopROL *XL*) PO SCH (08:28)
[2022-09-23] MEDS: CLOPIDOGREL 75 MG TAB PO SCH (08:29)
[2022-09-23] MEDS: DULoxetine 30MG CAPSULE (CYMBALTA) PO SCH (08:29)
[2022-09-23] MEDS: ASCORBIC ACID 250 MG TAB PO SCH (08:29)
[2022-09-23] MEDS: INSULIN LISPRO (NovoLOG) PER UNIT SC SCH ×4 (08:30→20:39)
[2022-09-23] MEDS: LEVEMIR (INSULIN DETEMIR) 1 UNITS/0.01ML SC SCH ×2 (08:30→20:35)
[2022-09-23] MEDS: diphenhydrAMINE CREAM 30GM TOP SCH (08:31)
[2022-09-23] MEDS: NYSTATIN CREAM 15GM TOP SCH ×2 (08:31→20:40)
[2022-09-23] MEDS: DIMETHICONE 2% OINTMENT(VANICREAM) 70GM TUBE TOP SCH ×2 (08:32→20:41)
[2022-09-23] MEDS: traMADol 50 MG TAB PO PRN (17:51)
[2022-09-23] MEDS: RIVAROXABAN 20MG TAB (XARELTO) PO SCH (20:35)
[2022-09-23] MEDS: ATORVASTATIN 20 MG TAB PO SCH (20:35)
[2022-09-23] MEDS: FINASTERIDE 5MG TAB PO SCH (20:35)
[2022-09-23] MEDS: QUEtiapine FUMARATE 100 MG TAB PO SCH (20:35)
[2022-09-23] MEDS: FUROSEMIDE 20 MG TAB PO SCH (20:35)
[2022-09-23] MEDS: EZETIMIBE 10MG TABLET (ZETIA) PO SCH (20:35)
[2022-09-23] MEDS: LURASIDONE 20 MG TAB (LATUDA) PO SCH (20:35)
[2022-09-24] MEDS: traMADol 50 MG TAB PO PRN ×4 (00:44→20:50)
[2022-09-24] MEDS: LEVOTHYROXINE 12.5MCG PER 1/2 TAB (0.0125MG) PO SCH (05:01)
[2022-09-24] MEDS: LEVOTHYROXINE 100MCG TABLET (0.1MG) PO SCH (05:01)
[2022-09-24 06:00] VITALS: BP 145/65
[2022-09-24] MEDS: LEVEMIR (INSULIN DETEMIR) 1 UNITS/0.01ML SC SCH ×2 (08:26→20:42)
[2022-09-24] MEDS: DULoxetine 30MG CAPSULE (CYMBALTA) PO SCH (08:27)
[2022-09-24] MEDS: BENZTROPINE 1 MG TAB PO SCH ×3 (08:27→20:41)
[2022-09-24] MEDS: VITAMIN D 1,000 INTERNATIONAL UNITS TABLET PO SCH (08:27)
[2022-09-24] MEDS: CLOPIDOGREL 75 MG TAB PO SCH (08:27)
[2022-09-24] MEDS: ASCORBIC ACID 250 MG TAB PO SCH (08:27)
[2022-09-24] MEDS: INSULIN LISPRO (NovoLOG) PER UNIT SC SCH ×4 (08:27→20:19)
[2022-09-24] MEDS: DIMETHICONE 2% OINTMENT(VANICREAM) 70GM TUBE TOP SCH ×2 (08:28→20:45)
[2022-09-24] MEDS: NYSTATIN CREAM 15GM TOP SCH ×2 (08:28→20:45)
[2022-09-24] MEDS: diphenhydrAMINE CREAM 30GM TOP SCH (08:29)
[2022-09-24] MEDS: PANTOPRAZOLE 40MG TAB (PROTONIX) PO SCH (08:32)
[2022-09-24] MEDS: METOPROLOL SUCC *XL* 25MG TAB (TopROL *XL*) PO SCH (08:32)
[2022-09-24] MEDS: MULTIVITAMINS/MINERALS THERAP 1 TAB PO SCH (08:32)
[2022-09-24] MEDS: PREGABALIN 25 MG CAP (LYRICA) PO SCH ×2 (08:32→20:41)
[2022-09-24] MEDS: QUEtiapine FUMARATE 100 MG TAB PO SCH (20:41)
[2022-09-24] MEDS: LURASIDONE 20 MG TAB (LATUDA) PO SCH (20:41)
[2022-09-24] MEDS: ATORVASTATIN 20 MG TAB PO SCH (20:41)
[2022-09-24] MEDS: FINASTERIDE 5MG TAB PO SCH (20:41)
[2022-09-24] MEDS: FUROSEMIDE 20 MG TAB PO SCH (20:41)
[2022-09-24] MEDS: RIVAROXABAN 20MG TAB (XARELTO) PO SCH (20:41)
[2022-09-24] MEDS: EZETIMIBE 10MG TABLET (ZETIA) PO SCH (20:42)
[2022-09-25] MEDS: LEVOTHYROXINE 100MCG TABLET (0.1MG) PO SCH (05:39)
[2022-09-25] MEDS: LEVOTHYROXINE 12.5MCG PER 1/2 TAB (0.0125MG) PO SCH (05:39)
[2022-09-25] MEDS: traMADol 50 MG TAB PO PRN (05:40)
[2022-09-25 05:48] VITALS: BP 157/63
[2022-09-25 06:00] VITALS: BP 157/63
[2022-09-25] MEDS: ASCORBIC ACID 250 MG TAB PO SCH (08:47)
[2022-09-25] MEDS: VITAMIN D 1,000 INTERNATIONAL UNITS TABLET PO SCH (08:47)
[2022-09-25] MEDS: CLOPIDOGREL 75 MG TAB PO SCH (08:47)
[2022-09-25] MEDS: PANTOPRAZOLE 40MG TAB (PROTONIX) PO SCH (08:47)
[2022-09-25] MEDS: PREGABALIN 25 MG CAP (LYRICA) PO SCH (08:47)
[2022-09-25] MEDS: DULoxetine 30MG CAPSULE (CYMBALTA) PO SCH (08:47)
[2022-09-25] MEDS: MULTIVITAMINS/MINERALS THERAP 1 TAB PO SCH (08:47)
[2022-09-25] MEDS: BENZTROPINE 1 MG TAB PO SCH (08:47)
[2022-09-25] MEDS: LEVEMIR (INSULIN DETEMIR) 1 UNITS/0.01ML SC SCH (08:48)
[2022-09-25] MEDS: INSULIN LISPRO (NovoLOG) PER UNIT SC SCH ×2 (08:48→11:44)
[2022-09-25 08:57] VITALS: BP 140/62
[2022-09-25] MEDS: METOPROLOL SUCC *XL* 25MG TAB (TopROL *XL*) PO SCH (08:57)
[2022-09-25] MEDS: diphenhydrAMINE CREAM 30GM TOP SCH (08:58)
[2022-09-25] MEDS: DIMETHICONE 2% OINTMENT(VANICREAM) 70GM TUBE TOP SCH (08:58)
[2022-09-25] MEDS: NYSTATIN CREAM 15GM TOP SCH (08:58)
[2022-09-25] MEDS ORDERED: LEVO25TA5 PO (09:24)
== END 2022-09-25 13:07 | disposition home or self-care (01) | DRG 948 ==
LOC: M ED 16:21 → M ED INP 23:30 → M MSPAV 09-22 01:09
PROVIDERS: ADMIT Internal Medicine; ATTEND Student in an Organized Health Care Education/Training Program
DX: R53.1 Weakness (principal); L97.909 Non-pressure chronic ulcer of unspecified part of unspecified lower leg with unspecified severity; Z68.41 Body mass index [BMI] 40.0-44.9, adult; K21.9 Gastro-esophageal reflux disease without esophagitis; E66.01 Morbid (severe) obesity due to excess calories; J44.9 Chronic obstructive pulmonary disease, unspecified; E78.5 Hyperlipidemia, unspecified; I10 Essential (primary) hypertension; E03.9 Hypothyroidism, unspecified; E87.6 Hypokalemia; F31.9 Bipolar disorder, unspecified; E11.9 Type 2 diabetes mellitus without complications; Z79.4 Long term (current) use of insulin; N40.0 Benign prostatic hyperplasia without lower urinary tract symptoms; F41.9 Anxiety disorder, unspecified; E83.42 Hypomagnesemia; E83.51 Hypocalcemia; Z91.013 Allergy to seafood; Z88.0 Allergy status to penicillin; Z88.2 Allergy status to sulfonamides; Z88.6 Allergy status to analgesic agent; Z79.899 Other long term (current) drug therapy; Z95.2 Presence of prosthetic heart valve; Z86.711 Personal history of pulmonary embolism; Z98.41 Cataract extraction status, right eye; Z98.42 Cataract extraction status, left eye; I87.8 Other specified disorders of veins

== ENCOUNTER 2022-10-06 20:27 | Emergency (ER) | payer MEDICARE, OTHER ==
[~2022-10-06 20:27] MED LIST changes: +LEVO25TA5 PO; +SEMA2PEN SQ
[2022-10-07] MEDS ORDERED: KETO2CR EXT (23:14)
[2022-10-07] MEDS ORDERED: MIRA1POW3 PO (23:14)
[2022-10-07] MEDS ORDERED: SYNT25TA PO (23:14)
[2022-10-07] MEDS ORDERED: [UNRECOGNIZED DRUG - CODE] EXT (23:14)
== END 2022-10-06 22:53 | disposition home or self-care (01) ==
LOC: EDBD 20:27 → M ED 20:27
DX: S70.311A Abrasion, right thigh, initial encounter (principal); E11.9 Type 2 diabetes mellitus without complications; E78.5 Hyperlipidemia, unspecified; K21.9 Gastro-esophageal reflux disease without esophagitis; E05.90 Thyrotoxicosis, unspecified without thyrotoxic crisis or storm; I10 Essential (primary) hypertension; E03.9 Hypothyroidism, unspecified; F32.A Depression, unspecified; Z76.89 Persons encountering health services in other specified circumstances; Z79.4 Long term (current) use of insulin; Z88.0 Allergy status to penicillin; Z88.2 Allergy status to sulfonamides; Z88.8 Allergy status to other drugs, medicaments and biological substances; Z91.013 Allergy to seafood; Z79.2 Long term (current) use of antibiotics; Z79.811 Long term (current) use of aromatase inhibitors; Z79.810 Long term (current) use of selective estrogen receptor modulators (SERMs); Z79.899 Other long term (current) drug therapy

== ENCOUNTER 2022-10-07 16:54 | Inpatient (IN) | payer MEDICARE, OTHER ==
[~2022-10-07] VITALS: Ht 170.2 cm; Wt 118.8 kg
[2022-10-07 17:51] LABS: BASO # 0.1 10^3/uL (0.0-0.2); BASO % 0.6 % (0.0-1.0); EOS # 2.8 10^3/uL (0.0-0.5); HEMATOCRIT 30.8 % (42.0-52.0); LYMPH # 1.1 10^3/uL (1.5-5.0); LYMPH % 9.5 % (24.0-44.0); MEAN CORPUSCULAR HEMOGLOBIN 29.8 pg (27.0-33.0); MEAN CORPUSCULAR HGB CONC 32.5 g/dl (32.0-36.5); MEAN CORPUSCULAR VOLUME 91.7 fl (80.0-96.0); MONO # 0.7 10^3/uL (0.0-0.8); MONO % 6.2 % (2.0-8.0); NEUTROPHILS # 6.6 10^3/uL (1.5-8.5); NEUTROPHILS % 58.7 % (36.0-66.0); PLATELET COUNT, AUTOMATED 356 10^3/uL (150-450); RED BLOOD COUNT 3.36 10^6/uL (4.30-6.10); WHITE BLOOD COUNT 11.3 10^3/uL (4.0-10.0)
[2022-10-07 18:04] LABS: INR 1.71; PROTHROMBIN TIME 20.4 SECONDS (12.5-14.5)
[2022-10-07 18:05] LABS: PARTIAL THROMBOPLASTIN TIME 39.4 SECONDS (24.8-34.2)
[2022-10-07 18:12] LABS: EOS % 24.5 % (0.0-3.0)
[2022-10-07 18:22] LABS: CK-MB VALUE MASS 2.5 NG/ML (<3.6)
[2022-10-07 18:25] LABS: BLOOD UREA NITROGEN 19 MG/DL (9-23); CALCIUM LEVEL 8.5 MG/DL (8.3-10.6); CARBON DIOXIDE LEVEL 28 MMOL/L (20-31); CHLORIDE LEVEL 101 MMOL/L (98-107); CREATININE FOR GFR 1.18 MG/DL (0.70-1.30); GLOMERULAR FILTRATION RATE > 60.0 (>49); GLUCOSE, FASTING 240 MG/DL (74-106); POTASSIUM SERUM 4.6 MMOL/L (3.5-5.1); SODIUM LEVEL 137 MMOL/L (136-145)
[2022-10-07 18:29] LABS: CPK CREATINE PHOSPHOKINASE 326 U/L (46-171); MB/CK RELATIVE INDEX 0.76 (< OR =4)
[2022-10-07] MEDS ORDERED: BOOSTRIX VACCINE (TETANUS/DIPHTH/ACEL. PERTUSSIS) 0.5ML SYR IM.IMMUN ONE (19:30)
[2022-10-07 19:45] LABS: MB/CK RELATIVE INDEX 0.75 (< OR =4)
[2022-10-07 20:55] LABS: RSV AMPLIFICATION NEGATIVE (NEGATIVE)
[2022-10-07 22:58] LABS: ALBUMIN 3.1 G/DL (3.2-5.2); ALKALINE PHOSPHATASE 99 U/L (46-116); ALT/SGPT 25 U/L (7.0-40); AST/SGOT 24 U/L (<34); BILIRUBIN,DIRECT 0.1 MG/DL (<0.4); BILIRUBIN,TOTAL 0.3 MG/DL (0.3-1.2); TOTAL PROTEIN 6.7 G/DL (5.7-8.2)
[2022-10-07] MEDS ORDERED: SYNT25TA PO (23:14)
[2022-10-07] MEDS ORDERED: KETO2CR EXT (23:14)
[2022-10-07] MEDS ORDERED: [UNRECOGNIZED DRUG - CODE] EXT (23:14)
[2022-10-07] MEDS ORDERED: MIRA1POW3 PO (23:14)
[2022-10-07] MEDS ORDERED: HOME MED LIST COMPLETE! XX SCH (23:15)
[2022-10-07] MEDS ORDERED: guaiFENesin 200 MG TAB PO PRN (23:25)
[2022-10-07] MEDS ORDERED: ACETAMINOPHEN 500 MG TAB PO PRN (23:25)
[2022-10-07] MEDS ORDERED: SENOKOT S TAB PO PRN (23:25)
[2022-10-08] MEDS ORDERED: DEXTROSE 50% 50ML SYRINGE IV PRN (00:05)
[2022-10-08] MEDS ORDERED: GLUCAGON INJ 1MG VIAL SC PRN (00:05)
[2022-10-08] MEDS ORDERED: GLUCOSE 4GM CHEW TABLET PO PRN (00:05)
[2022-10-08 00:43] VITALS: BP 145/61
[2022-10-08] MEDS: FINASTERIDE 5MG TAB PO SCH ×2 (01:17→20:03)
[2022-10-08] MEDS: EZETIMIBE 10MG TABLET (ZETIA) PO SCH ×2 (01:17→20:03)
[2022-10-08] MEDS: ATORVASTATIN 20 MG TAB PO SCH ×2 (01:17→20:02)
[2022-10-08] MEDS: PREGABALIN 25 MG CAP (LYRICA) PO SCH ×3 (01:18→22:14)
[2022-10-08] MEDS: traMADol 50 MG TAB PO PRN ×3 (01:18→17:53)
[2022-10-08] MEDS: LEVEMIR (INSULIN DETEMIR) 1 UNITS/0.01ML SC SCH ×3 (01:19→22:14)
[2022-10-08] MEDS: LEVOTHYROXINE 12.5MCG PER 1/2 TAB (0.0125MG) PO SCH (05:07)
[2022-10-08] MEDS: LEVOTHYROXINE 100MCG TABLET (0.1MG) PO SCH (05:07)
[2022-10-08 05:10] VITALS: BP 135/56
[2022-10-08 06:15] LABS: HEMATOCRIT 26.4 % (42.0-52.0); HEMOGLOBIN 8.8 g/dl (13.5-17.5); MEAN CORPUSCULAR HEMOGLOBIN 29.9 pg (27.0-33.0); MEAN CORPUSCULAR HGB CONC 33.3 g/dl (32.0-36.5); MEAN CORPUSCULAR VOLUME 89.8 fl (80.0-96.0); PLATELET COUNT, AUTOMATED 321 10^3/uL (150-450); RED BLOOD COUNT 2.94 10^6/uL (4.30-6.10); WHITE BLOOD COUNT 10.8 10^3/uL (4.0-10.0)
[2022-10-08 06:36] LABS: ALBUMIN 2.9 G/DL (3.2-5.2); ALKALINE PHOSPHATASE 89 U/L (46-116); ALT/SGPT 23 U/L (7.0-40); AST/SGOT 25 U/L (<34); BILIRUBIN,TOTAL 0.4 MG/DL (0.3-1.2); BLOOD UREA NITROGEN 16 MG/DL (9-23); CALCIUM LEVEL 8.9 MG/DL (8.3-10.6); CARBON DIOXIDE LEVEL 27 MMOL/L (20-31); CHLORIDE LEVEL 103 MMOL/L (98-107); CREATININE FOR GFR 1.08 MG/DL (0.70-1.30); GLOMERULAR FILTRATION RATE > 60.0 (>49); GLUCOSE, FASTING 204 MG/DL (74-106); MAGNESIUM LEVEL 1.6 MG/DL (1.8-2.4); POTASSIUM SERUM 4.1 MMOL/L (3.5-5.1); SODIUM LEVEL 138 MMOL/L (136-145); TOTAL PROTEIN 5.9 G/DL (5.7-8.2)
[2022-10-08] MEDS: PANTOPRAZOLE 40MG TAB (PROTONIX) PO SCH (08:51)
[2022-10-08] MEDS: CLOPIDOGREL 75 MG TAB PO SCH (08:51)
[2022-10-08] MEDS: BENZTROPINE 1 MG TAB PO SCH ×3 (08:51→20:03)
[2022-10-08] MEDS: DULoxetine 30MG CAPSULE (CYMBALTA) PO SCH (08:51)
[2022-10-08] MEDS: METOPROLOL SUCC *XL* 25MG TAB (TopROL *XL*) PO SCH (08:52)
[2022-10-08] MEDS: MIRALAX *UNIT DOSE* 17GM PACKET PO SCH (08:52)
[2022-10-08] MEDS: FUROSEMIDE 20 MG TAB PO SCH (08:52)
[2022-10-08] MEDS: INSULIN LISPRO (NovoLOG) PER UNIT SC SCH ×4 (08:53→21:00)
[2022-10-08 09:01] VITALS: BP_SYST 115; BP_SYST 125; BP_DIAS 54; BP_DIAS 74
[2022-10-08 14:00] VITALS: BP_SYST 107; BP_SYST 139; BP_DIAS 58; BP_DIAS 71
[2022-10-08] MEDS: LURASIDONE 20 MG TAB (LATUDA) PO SCH (20:02)
[2022-10-08] MEDS: QUEtiapine FUMARATE 25 MG TAB PO SCH (20:02)
[2022-10-08] MEDS: RIVAROXABAN 20MG TAB (XARELTO) PO SCH (20:03)
[2022-10-08 20:40] VITALS: BP 113/60
[2022-10-08] MEDS ORDERED: LURASIDONE 20 MG TAB (LATUDA) PO SCH (21:00)
[2022-10-08] MEDS ORDERED: QUEtiapine FUMARATE 100 MG TAB PO SCH (21:00)
[2022-10-09] MEDS: LEVOTHYROXINE 100MCG TABLET (0.1MG) PO SCH (05:27)
[2022-10-09] MEDS: LEVOTHYROXINE 12.5MCG PER 1/2 TAB (0.0125MG) PO SCH (05:27)
[2022-10-09 05:40] VITALS: BP 133/54
[2022-10-09 06:28] LABS: HEMATOCRIT 27.3 % (42.0-52.0); PLATELET COUNT, AUTOMATED 296 10^3/uL (150-450); WHITE BLOOD COUNT 8.5 10^3/uL (4.0-10.0)
[2022-10-09 06:51] LABS: BLOOD UREA NITROGEN 19 MG/DL (9-23); CALCIUM LEVEL 9.1 MG/DL (8.3-10.6); CARBON DIOXIDE LEVEL 30 MMOL/L (20-31); CHLORIDE LEVEL 105 MMOL/L (98-107); CREATININE FOR GFR 1.12 MG/DL (0.70-1.30); GLOMERULAR FILTRATION RATE > 60.0 (>49); GLUCOSE, FASTING 191 MG/DL (74-106); MAGNESIUM LEVEL 1.8 MG/DL (1.8-2.4); PHOSPHORUS LEVEL 5.1 MG/DL (2.4-5.1); POTASSIUM SERUM 3.9 MMOL/L (3.5-5.1); SODIUM LEVEL 141 MMOL/L (136-145)
[2022-10-09] MEDS: FUROSEMIDE 20 MG TAB PO SCH (09:13)
[2022-10-09] MEDS: DULoxetine 30MG CAPSULE (CYMBALTA) PO SCH (09:13)
[2022-10-09] MEDS: CLOPIDOGREL 75 MG TAB PO SCH (09:14)
[2022-10-09] MEDS: PANTOPRAZOLE 40MG TAB (PROTONIX) PO SCH (09:14)
[2022-10-09] MEDS: BENZTROPINE 1 MG TAB PO SCH ×3 (09:14→20:35)
[2022-10-09] MEDS: METOPROLOL SUCC *XL* 25MG TAB (TopROL *XL*) PO SCH (09:14)
[2022-10-09] MEDS: LEVEMIR (INSULIN DETEMIR) 1 UNITS/0.01ML SC SCH ×2 (09:15→20:35)
[2022-10-09] MEDS: INSULIN LISPRO (NovoLOG) PER UNIT SC SCH ×4 (09:15→20:19)
[2022-10-09] MEDS: MIRALAX *UNIT DOSE* 17GM PACKET PO SCH (09:21)
[2022-10-09] MEDS: PREGABALIN 25 MG CAP (LYRICA) PO SCH ×2 (09:21→21:07)
[2022-10-09 14:00] VITALS: BP 149/58
[2022-10-09] MEDS: traMADol 50 MG TAB PO PRN (14:06)
[2022-10-09] MEDS ORDERED: NIX CREME RINSE 1% 60ML KIT TOP ONE (15:00)
[2022-10-09] MEDS ORDERED: IVERMECTIN 3 MG TAB (STROMECTOL) PO ONE (17:00)
[2022-10-09] MEDS: EZETIMIBE 10MG TABLET (ZETIA) PO SCH (20:35)
[2022-10-09] MEDS: RIVAROXABAN 20MG TAB (XARELTO) PO SCH (20:35)
[2022-10-09] MEDS: QUEtiapine FUMARATE 25 MG TAB PO SCH (20:35)
[2022-10-09] MEDS: ATORVASTATIN 20 MG TAB PO SCH (20:35)
[2022-10-09] MEDS: LURASIDONE 20 MG TAB (LATUDA) PO SCH (20:35)
[2022-10-09] MEDS: FINASTERIDE 5MG TAB PO SCH (20:35)
[2022-10-09 20:55] VITALS: BP 137/51
[2022-10-10] MEDS: LEVOTHYROXINE 100MCG TABLET (0.1MG) PO SCH (05:58)
[2022-10-10] MEDS: LEVOTHYROXINE 12.5MCG PER 1/2 TAB (0.0125MG) PO SCH (05:58)
[2022-10-10 06:00] VITALS: BP 163/59
[2022-10-10] MEDS: LEVEMIR (INSULIN DETEMIR) 1 UNITS/0.01ML SC SCH ×2 (09:49→21:09)
[2022-10-10] MEDS: INSULIN LISPRO (NovoLOG) PER UNIT SC SCH ×4 (09:49→21:00)
[2022-10-10] MEDS: BENZTROPINE 1 MG TAB PO SCH ×3 (09:50→21:11)
[2022-10-10] MEDS: MIRALAX *UNIT DOSE* 17GM PACKET PO SCH (09:50)
[2022-10-10] MEDS: DULoxetine 30MG CAPSULE (CYMBALTA) PO SCH (09:50)
[2022-10-10] MEDS: PREGABALIN 25 MG CAP (LYRICA) PO SCH ×2 (09:50→21:48)
[2022-10-10] MEDS: FUROSEMIDE 20 MG TAB PO SCH (09:51)
[2022-10-10] MEDS: PANTOPRAZOLE 40MG TAB (PROTONIX) PO SCH (09:52)
[2022-10-10] MEDS: METOPROLOL SUCC *XL* 25MG TAB (TopROL *XL*) PO SCH (09:52)
[2022-10-10] MEDS: CLOPIDOGREL 75 MG TAB PO SCH (09:52)
[2022-10-10 09:56] VITALS: BP 160/61
[2022-10-10] MEDS: traMADol 50 MG TAB PO PRN ×3 (10:37→23:06)
[2022-10-10 14:00] VITALS: BP 153/63
[2022-10-10 20:55] VITALS: BP 107/58
[2022-10-10] MEDS: QUEtiapine FUMARATE 25 MG TAB PO SCH (21:09)
[2022-10-10] MEDS: ATORVASTATIN 20 MG TAB PO SCH (21:10)
[2022-10-10] MEDS: EZETIMIBE 10MG TABLET (ZETIA) PO SCH (21:10)
[2022-10-10] MEDS: RIVAROXABAN 20MG TAB (XARELTO) PO SCH (21:11)
[2022-10-10] MEDS: FINASTERIDE 5MG TAB PO SCH (21:11)
[2022-10-10] MEDS: LURASIDONE 20 MG TAB (LATUDA) PO SCH (21:11)
[2022-10-11] MEDS: LEVOTHYROXINE 12.5MCG PER 1/2 TAB (0.0125MG) PO SCH (05:48)
[2022-10-11] MEDS: LEVOTHYROXINE 100MCG TABLET (0.1MG) PO SCH (05:48)
[2022-10-11 06:00] VITALS: BP 120/64
[2022-10-11] MEDS: LEVEMIR (INSULIN DETEMIR) 1 UNITS/0.01ML SC SCH ×2 (09:10→21:36)
[2022-10-11] MEDS: MIRALAX *UNIT DOSE* 17GM PACKET PO SCH (09:10)
[2022-10-11] MEDS: BENZTROPINE 1 MG TAB PO SCH ×3 (09:11→21:34)
[2022-10-11] MEDS: INSULIN LISPRO (NovoLOG) PER UNIT SC SCH ×4 (09:11→21:00)
[2022-10-11] MEDS: traMADol 50 MG TAB PO PRN ×2 (09:12→18:04)
[2022-10-11] MEDS: DULoxetine 30MG CAPSULE (CYMBALTA) PO SCH (09:12)
[2022-10-11] MEDS: PREGABALIN 25 MG CAP (LYRICA) PO SCH ×2 (09:14→21:34)
[2022-10-11] MEDS: CLOPIDOGREL 75 MG TAB PO SCH (09:14)
[2022-10-11] MEDS: METOPROLOL SUCC *XL* 25MG TAB (TopROL *XL*) PO SCH (09:14)
[2022-10-11] MEDS: FUROSEMIDE 20 MG TAB PO SCH (09:14)
[2022-10-11] MEDS: PANTOPRAZOLE 40MG TAB (PROTONIX) PO SCH (09:14)
[2022-10-11 09:18] VITALS: BP 125/60
[2022-10-11 14:00] VITALS: BP 105/37
[2022-10-11 20:00] VITALS: BP 135/51
[2022-10-11] MEDS: QUEtiapine FUMARATE 25 MG TAB PO SCH (21:33)
[2022-10-11] MEDS: RIVAROXABAN 20MG TAB (XARELTO) PO SCH (21:33)
[2022-10-11] MEDS: EZETIMIBE 10MG TABLET (ZETIA) PO SCH (21:34)
[2022-10-11] MEDS: FINASTERIDE 5MG TAB PO SCH (21:34)
[2022-10-11] MEDS: LURASIDONE 20 MG TAB (LATUDA) PO SCH (21:34)
[2022-10-11] MEDS: ATORVASTATIN 20 MG TAB PO SCH (21:35)
[2022-10-12] MEDS: LEVOTHYROXINE 100MCG TABLET (0.1MG) PO SCH (05:24)
[2022-10-12] MEDS: LEVOTHYROXINE 12.5MCG PER 1/2 TAB (0.0125MG) PO SCH (05:24)
[2022-10-12 06:00] VITALS: BP 129/49
[2022-10-12] MEDS: LEVEMIR (INSULIN DETEMIR) 1 UNITS/0.01ML SC SCH ×2 (08:37→21:52)
[2022-10-12] MEDS: INSULIN LISPRO (NovoLOG) PER UNIT SC SCH ×4 (08:38→21:52)
[2022-10-12] MEDS: DULoxetine 30MG CAPSULE (CYMBALTA) PO SCH (08:39)
[2022-10-12] MEDS: METOPROLOL SUCC *XL* 25MG TAB (TopROL *XL*) PO SCH (08:39)
[2022-10-12] MEDS: CLOPIDOGREL 75 MG TAB PO SCH (08:40)
[2022-10-12] MEDS: FUROSEMIDE 20 MG TAB PO SCH (08:40)
[2022-10-12] MEDS: BENZTROPINE 1 MG TAB PO SCH ×3 (08:40→21:51)
[2022-10-12] MEDS: PANTOPRAZOLE 40MG TAB (PROTONIX) PO SCH (08:40)
[2022-10-12] MEDS: traMADol 50 MG TAB PO PRN ×3 (08:41→23:55)
[2022-10-12] MEDS: MIRALAX *UNIT DOSE* 17GM PACKET PO SCH (08:42)
[2022-10-12] MEDS: PREGABALIN 25 MG CAP (LYRICA) PO SCH ×2 (08:44→21:51)
[2022-10-12] MEDS: diphenhydrAMINE CREAM 30GM TOP PRN ×2 (08:44→21:56)
[2022-10-12 14:00] VITALS: BP 164/62
[2022-10-12 19:39] VITALS: BP 157/61
[2022-10-12] MEDS: RIVAROXABAN 20MG TAB (XARELTO) PO SCH (21:51)
[2022-10-12] MEDS: LURASIDONE 20 MG TAB (LATUDA) PO SCH (21:51)
[2022-10-12] MEDS: FINASTERIDE 5MG TAB PO SCH (21:51)
[2022-10-12] MEDS: ATORVASTATIN 20 MG TAB PO SCH (21:51)
[2022-10-12] MEDS: QUEtiapine FUMARATE 25 MG TAB PO SCH (21:51)
[2022-10-12] MEDS: EZETIMIBE 10MG TABLET (ZETIA) PO SCH (21:52)
[2022-10-12] MEDS: NYSTATIN 100,000 UNITS/GM TOPICAL PWD 15GM TOP PRN (23:44)
[2022-10-13] MEDS: LEVOTHYROXINE 12.5MCG PER 1/2 TAB (0.0125MG) PO SCH (05:57)
[2022-10-13] MEDS: LEVOTHYROXINE 100MCG TABLET (0.1MG) PO SCH (05:57)
[2022-10-13 06:00] VITALS: BP 129/52
[2022-10-13] MEDS ORDERED: DIMETHICONE 2% OINTMENT(VANICREAM) 70GM TUBE TOP SCH (09:00)
[2022-10-13] MEDS: PREGABALIN 25 MG CAP (LYRICA) PO SCH (09:35)
[2022-10-13] MEDS: PANTOPRAZOLE 40MG TAB (PROTONIX) PO SCH (09:35)
[2022-10-13] MEDS: BENZTROPINE 1 MG TAB PO SCH (09:36)
[2022-10-13] MEDS: FUROSEMIDE 20 MG TAB PO SCH (09:36)
[2022-10-13] MEDS: CLOPIDOGREL 75 MG TAB PO SCH (09:36)
[2022-10-13] MEDS: DULoxetine 30MG CAPSULE (CYMBALTA) PO SCH (09:36)
[2022-10-13 09:37] VITALS: BP 114/56
[2022-10-13] MEDS: MIRALAX *UNIT DOSE* 17GM PACKET PO SCH (09:37)
[2022-10-13] MEDS: METOPROLOL SUCC *XL* 25MG TAB (TopROL *XL*) PO SCH (09:37)
[2022-10-13] MEDS: LEVEMIR (INSULIN DETEMIR) 1 UNITS/0.01ML SC SCH (09:37)
[2022-10-13] MEDS: INSULIN LISPRO (NovoLOG) PER UNIT SC SCH ×2 (09:38→12:07)
[2022-10-13] MEDS: traMADol 50 MG TAB PO PRN (09:41)
[2022-10-13] MEDS: NYSTATIN 100,000 UNITS/GM TOPICAL PWD 15GM TOP PRN (09:49)
[2022-10-13] MEDS: diphenhydrAMINE CREAM 30GM TOP PRN (09:49)
[2022-10-13 14:00] VITALS: BP 144/48
[2022-10-13] MEDS ORDERED: QUET1TAB17 PO (15:13)
[2022-10-13] MEDS ORDERED: LATU20TA PO (15:13)
== END 2022-10-13 15:45 | disposition home health service (06) | DRG 184 ==
LOC: EDBD 16:54 → M ED 16:54 → M ED INP 22:04 → M MSPAV 10-08 00:40
PROVIDERS: ADMIT Family Medicine; ATTEND Internal Medicine
DX: S22.49XA Multiple fractures of ribs, unspecified side, initial encounter for closed fracture (principal); Z68.41 Body mass index [BMI] 40.0-44.9, adult; I50.30 Unspecified diastolic (congestive) heart failure; S70.311A Abrasion, right thigh, initial encounter; E78.5 Hyperlipidemia, unspecified; K21.9 Gastro-esophageal reflux disease without esophagitis; E03.9 Hypothyroidism, unspecified; F32.A Depression, unspecified; Z79.4 Long term (current) use of insulin; Z88.0 Allergy status to penicillin; Z88.2 Allergy status to sulfonamides; Z88.8 Allergy status to other drugs, medicaments and biological substances; Z91.013 Allergy to seafood; Z79.2 Long term (current) use of antibiotics; Z79.811 Long term (current) use of aromatase inhibitors; Z79.899 Other long term (current) drug therapy; J44.9 Chronic obstructive pulmonary disease, unspecified; I25.10 Atherosclerotic heart disease of native coronary artery without angina pectoris; E66.01 Morbid (severe) obesity due to excess calories; E11.40 Type 2 diabetes mellitus with diabetic neuropathy, unspecified; I87.2 Venous insufficiency (chronic) (peripheral); I65.23 Occlusion and stenosis of bilateral carotid arteries; M48.061 Spinal stenosis, lumbar region without neurogenic claudication; D64.9 Anemia, unspecified; I11.0 Hypertensive heart disease with heart failure; K59.00 Constipation, unspecified; Z98.41 Cataract extraction status, right eye; Z98.42 Cataract extraction status, left eye; W05.0XXA Fall from non-moving wheelchair, initial encounter; Y92.009 Unspecified place in unspecified non-institutional (private) residence as the place of occurrence of the external cause

== ENCOUNTER 2022-10-31 10:38 | Inpatient (IN) | payer MEDICARE, OTHER ==
[~2022-10-31] VITALS: Ht 167.6 cm; Wt 117.4 kg
[~2022-10-31 10:38] MED LIST changes: +KETO2CR EXT; +LATU20TA PO; +MIRA1POW3 PO; +QUET1TAB17 PO; +SYNT25TA PO; +[UNRECOGNIZED DRUG - CODE] EXT
[2022-10-31 11:13] LABS: VENOUS BASE EXCESS -0.2 (-2.0-2.0); VENOUS HCO3 26.1 MMOL/L (23.0-27.0); VENOUS O2 SATURATION 54.6 % (60.0-80.0); VENOUS PARTIAL PRESSURE CO2 50.2 mmHg (38.0-50.0); VENOUS PARTIAL PRESSURE O2 30.6 mmHg (30.0-50.0); VENOUS PH 7.334 UNITS (7.330-7.430); VENOUS STANDARD HCO3 23.6 MMOL/L; VENOUS TOTAL CO2 27.7 MMOL/L (24.0-28.0)
[2022-10-31] MEDS ORDERED: ISOVUE-370 76% 100ML VIAL As Ordered ONE (11:13)
[2022-10-31 11:24] LABS: BASO # 0.1 10^3/uL (0.0-0.2); BASO % 0.9 % (0.0-1.0); EOS # 0.9 10^3/uL (0.0-0.5); EOS % 9.9 % (0.0-3.0); HEMATOCRIT 31.1 % (42.0-52.0); HEMOGLOBIN 9.7 g/dl (13.5-17.5); LYMPH # 1.2 10^3/uL (1.5-5.0); LYMPH % 13.6 % (24.0-44.0); MEAN CORPUSCULAR HEMOGLOBIN 28.6 pg (27.0-33.0); MEAN CORPUSCULAR HGB CONC 31.2 g/dl (32.0-36.5); MEAN CORPUSCULAR VOLUME 91.7 fl (80.0-96.0); MONO # 0.7 10^3/uL (0.0-0.8); MONO % 7.7 % (2.0-8.0); NEUTROPHILS # 5.9 10^3/uL (1.5-8.5); NEUTROPHILS % 67.4 % (36.0-66.0); PLATELET COUNT, AUTOMATED 390 10^3/uL (150-450); RED BLOOD COUNT 3.39 10^6/uL (4.30-6.10); WHITE BLOOD COUNT 8.8 10^3/uL (4.0-10.0)
[2022-10-31] MEDS ORDERED: traMADol 50 MG TAB PO ONE (11:30)
[2022-10-31 11:38] LABS: INR 2.13; PROTHROMBIN TIME 24.2 SECONDS (12.5-14.5)
[2022-10-31 11:39] LABS: PARTIAL THROMBOPLASTIN TIME 40.9 SECONDS (24.8-34.2)
[2022-10-31 11:52] LABS: LIPASE 28 U/L (12-53)
[2022-10-31 11:54] LABS: ALBUMIN 3.2 G/DL (3.2-5.2); ALKALINE PHOSPHATASE 98 U/L (46-116); ALT/SGPT 19 U/L (7.0-40); AST/SGOT 9 U/L (<34); BILIRUBIN,DIRECT 0.1 MG/DL (<0.4); BILIRUBIN,TOTAL 0.3 MG/DL (0.3-1.2); BLOOD UREA NITROGEN 31 MG/DL (9-23); CALCIUM LEVEL 9.1 MG/DL (8.3-10.6); CARBON DIOXIDE LEVEL 26 MMOL/L (20-31); CHLORIDE LEVEL 105 MMOL/L (98-107); CREATININE FOR GFR 1.25 MG/DL (0.70-1.30); GLOMERULAR FILTRATION RATE > 60.0 (>49); GLUCOSE, FASTING 128 MG/DL (74-106); POTASSIUM SERUM 4.5 MMOL/L (3.5-5.1); SODIUM LEVEL 140 MMOL/L (136-145)
[2022-10-31 11:56] LABS: RSV AMPLIFICATION NEGATIVE (NEGATIVE)
[2022-10-31] MEDS ORDERED: INSULIN LISPRO (NovoLOG) PER UNIT SC SCH (12:00)
[2022-10-31 12:12] LABS: CK-MB VALUE MASS < 1.0 NG/ML (<3.6); CPK CREATINE PHOSPHOKINASE 56 U/L (46-171); ETHYL ALCOHOL (ETHANOL) < 0.003 % (0.000-0.010); MB/CK RELATIVE INDEX 1.78 (< OR =4)
[2022-10-31 12:52] VITALS: BP 136/63; TEMP 97.3; O2SAT 100
[2022-10-31 12:54] LABS: CK-MB VALUE MASS < 1.0 NG/ML (<3.6)
[2022-10-31 12:56] LABS: CPK CREATINE PHOSPHOKINASE 58 U/L (46-171); MB/CK RELATIVE INDEX 1.72 (< OR =4)
[2022-10-31 13:14] VITALS: BP 132/59; TEMP 97.8; O2SAT 100
[2022-10-31] MEDS ORDERED: LATU40TA2 PO (13:21)
[2022-10-31] MEDS ORDERED: QUET1TAB17 PO (13:21)
[2022-10-31] MEDS ORDERED: HOME MED LIST COMPLETE! XX SCH (13:25)
[2022-10-31] MEDS ORDERED: NS 1,000 ML IV SCH (14:05)
[2022-10-31] MEDS ORDERED: GLUCOSE 4GM CHEW TABLET PO PRN (14:10)
[2022-10-31] MEDS ORDERED: GLUCAGON INJ 1MG VIAL SC PRN (14:10)
[2022-10-31] MEDS ORDERED: DEXTROSE 50% 50ML SYRINGE IV PRN (14:10)
[2022-10-31 14:50] VITALS: BP 135/63; TEMP 97; O2SAT 100
[2022-10-31 15:05] VITALS: BP 130/60; TEMP 96.9; O2SAT 100
[2022-10-31] MEDS ORDERED: BENZTROPINE 0.5 MG TAB PO SCH (16:00)
[2022-10-31] MEDS ORDERED: PILL CUTTER 1 EACH XX PRN (16:05)
[2022-10-31 16:49] LABS: HEMATOCRIT 33.1 % (42.0-52.0); HEMOGLOBIN 10.4 g/dl (13.5-17.5)
[2022-10-31] MEDS: INSULIN LISPRO (NovoLOG) PER UNIT SC SCH ×2 (17:12→21:00)
[2022-10-31 20:00] VITALS: BP 138/61; TEMP 96.7; O2SAT 98
[2022-10-31] MEDS: PANTOPRAZOLE 40MG VIAL IV SCH (20:16)
[2022-10-31] MEDS: ATORVASTATIN 20 MG TAB PO SCH (20:16)
[2022-10-31] MEDS: FINASTERIDE 5MG TAB PO SCH (20:16)
[2022-10-31] MEDS: EZETIMIBE 10MG TABLET (ZETIA) PO SCH (20:16)
[2022-10-31] MEDS: QUEtiapine FUMARATE 25 MG TAB PO SCH (20:16)
[2022-10-31] MEDS: BENZTROPINE 1 MG TAB PO SCH (20:17)
[2022-10-31] MEDS: MIRALAX *UNIT DOSE* 17GM PACKET PO SCH (20:17)
[2022-10-31] MEDS: PREGABALIN 25 MG CAP (LYRICA) PO SCH (20:19)
[2022-11-01] VITALS (7 sets, daily range): BP systolic 122–166; BP diastolic 55–74; TEMP 96.7–99.5; O2SAT 95–100
[2022-11-01] MEDS: LEVOTHYROXINE 100MCG TABLET (0.1MG) PO SCH (05:17)
[2022-11-01] MEDS: LEVOTHYROXINE 25MCG TABLET (0.025MG) PO SCH (05:17)
[2022-11-01 05:33] LABS: HEMATOCRIT 33.6 % (42.0-52.0); HEMOGLOBIN 10.6 g/dl (13.5-17.5); MEAN CORPUSCULAR HEMOGLOBIN 28.7 pg (27.0-33.0); MEAN CORPUSCULAR HGB CONC 31.5 g/dl (32.0-36.5); MEAN CORPUSCULAR VOLUME 91.1 fl (80.0-96.0); PLATELET COUNT, AUTOMATED 344 10^3/uL (150-450); RED BLOOD COUNT 3.69 10^6/uL (4.30-6.10); WHITE BLOOD COUNT 8.4 10^3/uL (4.0-10.0)
[2022-11-01 05:44] LABS: INR 1.29; PROTHROMBIN TIME 16.3 SECONDS (12.5-14.5)
[2022-11-01 05:45] LABS: PARTIAL THROMBOPLASTIN TIME 30.8 SECONDS (24.8-34.2)
[2022-11-01 05:56] LABS: IRON (FE) 35 UG/DL (65-175); PERCENT SATURATION 12.7 % (19.7-50.0); TOTAL IRON BINDING CAPACITY 275 UG/DL (250-425)
[2022-11-01 05:58] LABS: FERRITIN 81.2 NG/ML (10.5-307.3)
[2022-11-01 06:00] LABS: ALKALINE PHOSPHATASE 96 U/L (46-116); ALT/SGPT 20 U/L (7.0-40); AST/SGOT 18 U/L (<34); BILIRUBIN,TOTAL 0.7 MG/DL (0.3-1.2); BLOOD UREA NITROGEN 19 MG/DL (9-23); CALCIUM LEVEL 8.7 MG/DL (8.3-10.6); CARBON DIOXIDE LEVEL 28 MMOL/L (20-31); CHLORIDE LEVEL 106 MMOL/L (98-107); CREATININE FOR GFR 1.16 MG/DL (0.70-1.30); GLOMERULAR FILTRATION RATE > 60.0 (>49); GLUCOSE, FASTING 134 MG/DL (74-106); POTASSIUM SERUM 4.2 MMOL/L (3.5-5.1); SODIUM LEVEL 143 MMOL/L (136-145); TOTAL PROTEIN 6.6 G/DL (5.7-8.2)
[2022-11-01] MEDS: INSULIN LISPRO (NovoLOG) PER UNIT SC SCH ×4 (08:22→21:00)
[2022-11-01] MEDS: PANTOPRAZOLE 40MG VIAL IV SCH ×2 (08:24→20:22)
[2022-11-01] MEDS: METOPROLOL SUCC (TopROL XL) 50MG **XL** TAB PO SCH (08:24)
[2022-11-01] MEDS: MULTIVITAMINS/MINERALS THERAP 1 TAB PO SCH (08:24)
[2022-11-01] MEDS: PREGABALIN 25 MG CAP (LYRICA) PO SCH ×2 (08:24→20:22)
[2022-11-01] MEDS: DULoxetine 30MG CAPSULE (CYMBALTA) PO SCH (08:24)
[2022-11-01] MEDS: BENZTROPINE 1 MG TAB PO SCH ×3 (08:25→20:22)
[2022-11-01] MEDS: MIRALAX *UNIT DOSE* 17GM PACKET PO SCH ×2 (08:25→20:23)
[2022-11-01] MEDS: traMADol 50 MG TAB PO PRN ×2 (09:45→20:23)
[2022-11-01] MEDS: ATORVASTATIN 20 MG TAB PO SCH (20:22)
[2022-11-01] MEDS: FINASTERIDE 5MG TAB PO SCH (20:22)
[2022-11-01] MEDS: EZETIMIBE 10MG TABLET (ZETIA) PO SCH (20:23)
[2022-11-01] MEDS: QUEtiapine FUMARATE 25 MG TAB PO SCH (20:23)
[2022-11-02 03:53] VITALS: BP 144/65; TEMP 97.9; O2SAT 97
[2022-11-02 05:10] LABS: HEMATOCRIT 32.4 % (42.0-52.0); HEMOGLOBIN 10.2 g/dl (13.5-17.5); MEAN CORPUSCULAR HEMOGLOBIN 28.7 pg (27.0-33.0); MEAN CORPUSCULAR HGB CONC 31.5 g/dl (32.0-36.5); PLATELET COUNT, AUTOMATED 321 10^3/uL (150-450); RED BLOOD COUNT 3.56 10^6/uL (4.30-6.10); WHITE BLOOD COUNT 13.1 10^3/uL (4.0-10.0)
[2022-11-02] MEDS: LEVOTHYROXINE 25MCG TABLET (0.025MG) PO SCH (05:12)
[2022-11-02] MEDS: LEVOTHYROXINE 100MCG TABLET (0.1MG) PO SCH (05:12)
[2022-11-02 05:21] LABS: INR 1.11; PROTHROMBIN TIME 14.5 SECONDS (12.5-14.5)
[2022-11-02 05:22] LABS: PARTIAL THROMBOPLASTIN TIME 26.4 SECONDS (24.8-34.2)
[2022-11-02 05:35] LABS: ALBUMIN 2.9 G/DL (3.2-5.2); ALKALINE PHOSPHATASE 98 U/L (46-116); ALT/SGPT 21 U/L (7.0-40); AST/SGOT 17 U/L (<34); BILIRUBIN,TOTAL 0.6 MG/DL (0.3-1.2); BLOOD UREA NITROGEN 17 MG/DL (9-23); CALCIUM LEVEL 8.6 MG/DL (8.3-10.6); CARBON DIOXIDE LEVEL 26 MMOL/L (20-31); CHLORIDE LEVEL 104 MMOL/L (98-107); CREATININE FOR GFR 1.05 MG/DL (0.70-1.30); GLOMERULAR FILTRATION RATE > 60.0 (>49); GLUCOSE, FASTING 201 MG/DL (74-106); POTASSIUM SERUM 4.4 MMOL/L (3.5-5.1); SODIUM LEVEL 139 MMOL/L (136-145); TOTAL PROTEIN 6.5 G/DL (5.7-8.2)
[2022-11-02 07:38] VITALS: BP 149/64; TEMP 97.7; O2SAT 96
[2022-11-02] MEDS: INSULIN LISPRO (NovoLOG) PER UNIT SC SCH ×4 (08:12→20:29)
[2022-11-02] MEDS: PANTOPRAZOLE 40MG VIAL IV SCH ×2 (08:12→20:40)
[2022-11-02] MEDS: DULoxetine 30MG CAPSULE (CYMBALTA) PO SCH (08:12)
[2022-11-02] MEDS: PREGABALIN 25 MG CAP (LYRICA) PO SCH ×2 (08:12→20:41)
[2022-11-02] MEDS: BENZTROPINE 1 MG TAB PO SCH ×3 (08:12→20:41)
[2022-11-02] MEDS: MULTIVITAMINS/MINERALS THERAP 1 TAB PO SCH (08:12)
[2022-11-02] MEDS: MIRALAX *UNIT DOSE* 17GM PACKET PO SCH ×2 (08:13→20:40)
[2022-11-02] MEDS: METOPROLOL SUCC (TopROL XL) 50MG **XL** TAB PO SCH (08:13)
[2022-11-02] MEDS: traMADol 50 MG TAB PO PRN ×2 (09:17→20:42)
[2022-11-02 11:23] VITALS: BP 145/92; TEMP 97.4; O2SAT 99
[2022-11-02] MEDS ORDERED: GOLYTELY SOLN 4000 ML BTL PO ONE (12:00)
[2022-11-02] MEDS ORDERED: VANCOMYCIN HCL 1,000 MG, VIAL MATE ADAPTER 1 EACH in D5W 250 ML IV SCH (12:05)
[2022-11-02] MEDS ORDERED: PREVNAR-20 VACCINE 0.5ML SYRINGE IM.IMMUN ONE (16:00)
[2022-11-02] MEDS ORDERED: BISACODYL 5MG TAB PO ONE (16:00)
[2022-11-02 20:10] VITALS: BP 150/60; TEMP 97.4; O2SAT 100
[2022-11-02] MEDS: FINASTERIDE 5MG TAB PO SCH (20:41)
[2022-11-02] MEDS: EZETIMIBE 10MG TABLET (ZETIA) PO SCH (20:41)
[2022-11-02] MEDS: ATORVASTATIN 20 MG TAB PO SCH (20:42)
[2022-11-02] MEDS: QUEtiapine FUMARATE 25 MG TAB PO SCH (20:42)
[2022-11-03 00:37] VITALS: BP 120/54; TEMP 97.5; O2SAT 98
[2022-11-03 04:48] VITALS: BP 148/58; TEMP 98.3; O2SAT 98
[2022-11-03] MEDS: LEVOTHYROXINE 100MCG TABLET (0.1MG) PO SCH (05:24)
[2022-11-03] MEDS: LEVOTHYROXINE 25MCG TABLET (0.025MG) PO SCH (05:24)
[2022-11-03 05:58] LABS: HEMATOCRIT 31.6 % (42.0-52.0); MEAN CORPUSCULAR HEMOGLOBIN 28.8 pg (27.0-33.0); MEAN CORPUSCULAR HGB CONC 31.6 g/dl (32.0-36.5); MEAN CORPUSCULAR VOLUME 91.1 fl (80.0-96.0); PLATELET COUNT, AUTOMATED 298 10^3/uL (150-450); RED BLOOD COUNT 3.47 10^6/uL (4.30-6.10); WHITE BLOOD COUNT 9.1 10^3/uL (4.0-10.0)
[2022-11-03 06:15] LABS: INR 1.09; PROTHROMBIN TIME 14.3 SECONDS (12.5-14.5)
[2022-11-03 06:16] LABS: PARTIAL THROMBOPLASTIN TIME 28.6 SECONDS (24.8-34.2)
[2022-11-03 06:21] LABS: ALBUMIN 2.8 G/DL (3.2-5.2); ALKALINE PHOSPHATASE 92 U/L (46-116); ALT/SGPT 15 U/L (7.0-40); AST/SGOT 11 U/L (<34); BILIRUBIN,TOTAL 0.6 MG/DL (0.3-1.2); BLOOD UREA NITROGEN 13 MG/DL (9-23); CALCIUM LEVEL 7.7 MG/DL (8.3-10.6); CARBON DIOXIDE LEVEL 27 MMOL/L (20-31); CHLORIDE LEVEL 105 MMOL/L (98-107); CREATININE FOR GFR 1.14 MG/DL (0.70-1.30); GLOMERULAR FILTRATION RATE > 60.0 (>49); GLUCOSE, FASTING 164 MG/DL (74-106); POTASSIUM SERUM 4.2 MMOL/L (3.5-5.1); SODIUM LEVEL 140 MMOL/L (136-145); TOTAL PROTEIN 6.2 G/DL (5.7-8.2)
[2022-11-03] MEDS: traMADol 50 MG TAB PO PRN ×2 (06:43→20:15)
[2022-11-03] MEDS: INSULIN LISPRO (NovoLOG) PER UNIT SC SCH ×4 (07:30→21:00)
[2022-11-03 08:00] VITALS: BP 155/57; TEMP 98; O2SAT 97
[2022-11-03] MEDS: PANTOPRAZOLE 40MG VIAL IV SCH ×2 (08:57→20:14)
[2022-11-03] MEDS: DULoxetine 30MG CAPSULE (CYMBALTA) PO SCH (08:58)
[2022-11-03] MEDS: MIRALAX *UNIT DOSE* 17GM PACKET PO SCH ×2 (08:58→20:16)
[2022-11-03] MEDS: PREGABALIN 25 MG CAP (LYRICA) PO SCH ×2 (08:58→20:18)
[2022-11-03] MEDS: MULTIVITAMINS/MINERALS THERAP 1 TAB PO SCH (08:58)
[2022-11-03] MEDS: BENZTROPINE 1 MG TAB PO SCH ×3 (08:59→20:14)
[2022-11-03] MEDS: METOPROLOL SUCC (TopROL XL) 50MG **XL** TAB PO SCH (09:00)
[2022-11-03] MEDS: FERROUS SULFATE 325MG TAB PO SCH (11:30)
[2022-11-03 15:46] VITALS: BP 152/57; TEMP 97; O2SAT 96
[2022-11-03] MEDS ORDERED: propofoL 200 MG/20 ML VIAL As Ordered ONE (16:28)
[2022-11-03] MEDS ORDERED: LIDOCAINE 2% 100MG/5ML SDV (FOR ANES.) As Ordered ONE (16:28)
[2022-11-03] MEDS ORDERED: ePHEDrine SULFATE 25 MG/5 ML(5MG/ML) SYRINGE As Ordered ONE (17:20)
[2022-11-03] MEDS ORDERED: PHENYLephrine 500MCG 5ML (100MCG/ML) SYRINGE As Ordered ONE (17:20)
[2022-11-03 17:53] VITALS: BP 142/60; TEMP 98.6; O2SAT 94
[2022-11-03 19:48] VITALS: BP 154/64; TEMP 97.3; O2SAT 96
[2022-11-03] MEDS: FINASTERIDE 5MG TAB PO SCH (20:14)
[2022-11-03] MEDS: ATORVASTATIN 20 MG TAB PO SCH (20:15)
[2022-11-03] MEDS: EZETIMIBE 10MG TABLET (ZETIA) PO SCH (20:15)
[2022-11-03] MEDS: QUEtiapine FUMARATE 25 MG TAB PO SCH (20:15)
[2022-11-04 03:38] VITALS: BP 138/60; TEMP 97.5; O2SAT 95
[2022-11-04] MEDS: LEVOTHYROXINE 100MCG TABLET (0.1MG) PO SCH (05:05)
[2022-11-04] MEDS: LEVOTHYROXINE 25MCG TABLET (0.025MG) PO SCH (05:05)
[2022-11-04] MEDS: traMADol 50 MG TAB PO PRN ×3 (05:06→20:11)
[2022-11-04 05:44] LABS: HEMOGLOBIN 10.1 g/dl (13.5-17.5); MEAN CORPUSCULAR HEMOGLOBIN 28.6 pg (27.0-33.0); MEAN CORPUSCULAR HGB CONC 31.6 g/dl (32.0-36.5); MEAN CORPUSCULAR VOLUME 90.7 fl (80.0-96.0); PLATELET COUNT, AUTOMATED 293 10^3/uL (150-450); RED BLOOD COUNT 3.53 10^6/uL (4.30-6.10); WHITE BLOOD COUNT 7.9 10^3/uL (4.0-10.0)
[2022-11-04 06:17] LABS: ALBUMIN 2.6 G/DL (3.2-5.2); ALKALINE PHOSPHATASE 86 U/L (46-116); ALT/SGPT 18 U/L (7.0-40); AST/SGOT 17 U/L (<34); BILIRUBIN,TOTAL 0.6 MG/DL (0.3-1.2); BLOOD UREA NITROGEN 13 MG/DL (9-23); CALCIUM LEVEL 7.6 MG/DL (8.3-10.6); CARBON DIOXIDE LEVEL 26 MMOL/L (20-31); CHLORIDE LEVEL 107 MMOL/L (98-107); CREATININE FOR GFR 1.03 MG/DL (0.70-1.30); GLOMERULAR FILTRATION RATE > 60.0 (>49); GLUCOSE, FASTING 181 MG/DL (74-106); SODIUM LEVEL 140 MMOL/L (136-145); TOTAL PROTEIN 6.1 G/DL (5.7-8.2)
[2022-11-04 06:45] LABS: INR 1.03; PROTHROMBIN TIME 13.7 SECONDS (12.5-14.5)
[2022-11-04 06:46] LABS: PARTIAL THROMBOPLASTIN TIME 27.6 SECONDS (24.8-34.2)
[2022-11-04 07:39] VITALS: BP 133/58; TEMP 97.7; O2SAT 94
[2022-11-04] MEDS: INSULIN LISPRO (NovoLOG) PER UNIT SC SCH ×4 (08:25→20:19)
[2022-11-04] MEDS: DULoxetine 30MG CAPSULE (CYMBALTA) PO SCH (08:25)
[2022-11-04] MEDS: PANTOPRAZOLE 40MG VIAL IV SCH ×2 (08:25→20:10)
[2022-11-04] MEDS: MULTIVITAMINS/MINERALS THERAP 1 TAB PO SCH (08:26)
[2022-11-04] MEDS: MIRALAX *UNIT DOSE* 17GM PACKET PO SCH ×2 (08:26→20:12)
[2022-11-04] MEDS: BENZTROPINE 1 MG TAB PO SCH ×3 (08:26→20:10)
[2022-11-04] MEDS: PREGABALIN 25 MG CAP (LYRICA) PO SCH ×2 (08:26→20:11)
[2022-11-04] MEDS: FERROUS SULFATE 325MG TAB PO SCH (08:26)
[2022-11-04 08:27] VITALS: BP 133/58
[2022-11-04] MEDS: METOPROLOL SUCC (TopROL XL) 50MG **XL** TAB PO SCH (08:27)
[2022-11-04 19:54] VITALS: BP 156/70; TEMP 97.1; O2SAT 91
[2022-11-04] MEDS: EZETIMIBE 10MG TABLET (ZETIA) PO SCH (20:11)
[2022-11-04] MEDS: QUEtiapine FUMARATE 25 MG TAB PO SCH (20:11)
[2022-11-04] MEDS: ATORVASTATIN 20 MG TAB PO SCH (20:11)
[2022-11-04] MEDS: FINASTERIDE 5MG TAB PO SCH (20:11)
[2022-11-05] MEDS: traMADol 50 MG TAB PO PRN ×3 (01:23→16:01)
[2022-11-05] MEDS: LEVOTHYROXINE 100MCG TABLET (0.1MG) PO SCH (05:15)
[2022-11-05] MEDS: LEVOTHYROXINE 25MCG TABLET (0.025MG) PO SCH (05:16)
[2022-11-05 05:42] LABS: HEMATOCRIT 28.4 % (42.0-52.0); HEMOGLOBIN 9.2 g/dl (13.5-17.5); MEAN CORPUSCULAR HGB CONC 32.4 g/dl (32.0-36.5); MEAN CORPUSCULAR VOLUME 89.6 fl (80.0-96.0); PLATELET COUNT, AUTOMATED 278 10^3/uL (150-450); RED BLOOD COUNT 3.17 10^6/uL (4.30-6.10); WHITE BLOOD COUNT 6.6 10^3/uL (4.0-10.0)
[2022-11-05 06:04] LABS: INR 0.99; PROTHROMBIN TIME 13.3 SECONDS (12.5-14.5)
[2022-11-05 06:05] LABS: PARTIAL THROMBOPLASTIN TIME 27.6 SECONDS (24.8-34.2)
[2022-11-05 06:07] LABS: ALBUMIN 2.4 G/DL (3.2-5.2); ALKALINE PHOSPHATASE 80 U/L (46-116); ALT/SGPT 21 U/L (7.0-40); AST/SGOT 12 U/L (<34); BILIRUBIN,TOTAL 0.4 MG/DL (0.3-1.2); BLOOD UREA NITROGEN 19 MG/DL (9-23); CALCIUM LEVEL 8.6 MG/DL (8.3-10.6); CARBON DIOXIDE LEVEL 24 MMOL/L (20-31); CHLORIDE LEVEL 106 MMOL/L (98-107); GLOMERULAR FILTRATION RATE > 60.0 (>49); GLUCOSE, FASTING 274 MG/DL (74-106); POTASSIUM SERUM 3.9 MMOL/L (3.5-5.1); SODIUM LEVEL 136 MMOL/L (136-145); TOTAL PROTEIN 5.8 G/DL (5.7-8.2)
[2022-11-05 07:26] VITALS: BP 112/50; TEMP 97.1; O2SAT 97
[2022-11-05] MEDS: METOPROLOL SUCC (TopROL XL) 50MG **XL** TAB PO SCH (08:33)
[2022-11-05] MEDS: PANTOPRAZOLE 40MG VIAL IV SCH (08:33)
[2022-11-05] MEDS: BENZTROPINE 1 MG TAB PO SCH ×2 (08:33→16:01)
[2022-11-05] MEDS: MULTIVITAMINS/MINERALS THERAP 1 TAB PO SCH (08:33)
[2022-11-05] MEDS: DULoxetine 30MG CAPSULE (CYMBALTA) PO SCH (08:34)
[2022-11-05] MEDS: FERROUS SULFATE 325MG TAB PO SCH (08:34)
[2022-11-05] MEDS: MIRALAX *UNIT DOSE* 17GM PACKET PO SCH (08:35)
[2022-11-05] MEDS: INSULIN LISPRO (NovoLOG) PER UNIT SC SCH ×2 (08:35→12:31)
[2022-11-05] MEDS: PREGABALIN 25 MG CAP (LYRICA) PO SCH (08:53)
[2022-11-05] MEDS ORDERED: FERR1TAB8 PO (12:11)
[2022-11-05] MEDS ORDERED: PANTOPRAZOLE 40MG TAB (PROTONIX) PO SCH (21:00)
[2022-11-06] MEDS ORDERED: CLOPIDOGREL 75 MG TAB PO SCH (09:00)
[2022-11-06] MEDS ORDERED: RIVAROXABAN 20MG TAB (XARELTO) PO SCH (18:00)
== END 2022-11-05 17:10 | disposition home or self-care (01) | DRG 813 ==
LOC: M ED 10:38 → EDBD 10:38 → M ED INP 14:02 → ENRESERV 14:50 → M PCU 15:05
PROVIDERS: ADMIT Internal Medicine; ATTEND Family Medicine
PROC: 30233N1 Transfusion of Nonautologous Red Blood Cells into Peripheral Vein, Percutaneous Approach (ICD-10-PCS; principal; 2022-10-31)
PROC: 0DBM8ZX Excision of Descending Colon, Via Natural or Artificial Opening Endoscopic, Diagnostic (ICD-10-PCS; 2022-11-03)
PROC: 0DBK8ZX Excision of Ascending Colon, Via Natural or Artificial Opening Endoscopic, Diagnostic (ICD-10-PCS; 2022-11-03)
PROC: 0DBL8ZX Excision of Transverse Colon, Via Natural or Artificial Opening Endoscopic, Diagnostic (ICD-10-PCS; 2022-11-03)
PROC: 0DBP8ZX Excision of Rectum, Via Natural or Artificial Opening Endoscopic, Diagnostic (ICD-10-PCS; 2022-11-03)
DX: D68.32 Hemorrhagic disorder due to extrinsic circulating anticoagulants (principal); D62 Acute posthemorrhagic anemia; K62.5 Hemorrhage of anus and rectum; J44.9 Chronic obstructive pulmonary disease, unspecified; I10 Essential (primary) hypertension; E03.9 Hypothyroidism, unspecified; E11.51 Type 2 diabetes mellitus with diabetic peripheral angiopathy without gangrene; E78.5 Hyperlipidemia, unspecified; Z79.01 Long term (current) use of anticoagulants; Z95.5 Presence of coronary angioplasty implant and graft; N40.0 Benign prostatic hyperplasia without lower urinary tract symptoms; I87.2 Venous insufficiency (chronic) (peripheral); K21.9 Gastro-esophageal reflux disease without esophagitis; F31.9 Bipolar disorder, unspecified; I25.10 Atherosclerotic heart disease of native coronary artery without angina pectoris; Z95.2 Presence of prosthetic heart valve; Z91.013 Allergy to seafood; Z88.0 Allergy status to penicillin; Z88.2 Allergy status to sulfonamides; Z88.8 Allergy status to other drugs, medicaments and biological substances; Z79.4 Long term (current) use of insulin; Z79.899 Other long term (current) drug therapy; E66.01 Morbid (severe) obesity due to excess calories; Z98.42 Cataract extraction status, left eye; Z98.41 Cataract extraction status, right eye; Z87.891 Personal history of nicotine dependence; D12.8 Benign neoplasm of rectum; D12.4 Benign neoplasm of descending colon; D12.3 Benign neoplasm of transverse colon; D12.2 Benign neoplasm of ascending colon; K64.8 Other hemorrhoids; K57.30 Diverticulosis of large intestine without perforation or abscess without bleeding

== ENCOUNTER 2023-01-15 17:46 | Inpatient (IN) | payer MEDICARE, OTHER ==
[~2023-01-15] VITALS: Ht 170.2 cm; Wt 110.5 kg
[~2023-01-15 17:46] MED LIST changes: +FERR1TAB8 PO; +LATU40TA2 PO; -PREG25CA2 PO; +PREG25CA3 PO
[2023-01-15 18:55] LABS: BASO # 0.1 10^3/uL (0.0-0.2); BASO % 0.5 % (0.0-1.0); EOS # 0.7 10^3/uL (0.0-0.5); EOS % 6.2 % (0.0-3.0); HEMATOCRIT 35.2 % (42.0-52.0); HEMOGLOBIN 11.2 g/dl (13.5-17.5); LYMPH # 0.9 10^3/uL (1.5-5.0); LYMPH % 7.3 % (24.0-44.0); MEAN CORPUSCULAR HGB CONC 31.8 g/dl (32.0-36.5); MEAN CORPUSCULAR VOLUME 84.8 fl (80.0-96.0); MONO # 0.8 10^3/uL (0.0-0.8); MONO % 6.5 % (2.0-8.0); NEUTROPHILS # 9.5 10^3/uL (1.5-8.5); NEUTROPHILS % 79.1 % (36.0-66.0); PLATELET COUNT, AUTOMATED 455 10^3/uL (150-450); RED BLOOD COUNT 4.15 10^6/uL (4.30-6.10)
[2023-01-15 19:22] LABS: ALBUMIN 2.8 G/DL (3.2-5.2); ALKALINE PHOSPHATASE 92 U/L (46-116); ALT/SGPT 25 U/L (7.0-40); AST/SGOT 41 U/L (<34); BILIRUBIN,TOTAL 0.5 MG/DL (0.3-1.2); BLOOD UREA NITROGEN 23 MG/DL (9-23); CALCIUM LEVEL 8.4 MG/DL (8.3-10.6); CARBON DIOXIDE LEVEL 24 MMOL/L (20-31); CHLORIDE LEVEL 103 MMOL/L (98-107); CREATININE FOR GFR 1.09 MG/DL (0.70-1.30); GLOMERULAR FILTRATION RATE > 60.0 (>49); GLUCOSE, FASTING 108 MG/DL (74-106); POTASSIUM SERUM 4.9 MMOL/L (3.5-5.1); SODIUM LEVEL 137 MMOL/L (136-145); TOTAL PROTEIN 6.9 G/DL (5.7-8.2)
[2023-01-15] MEDS ORDERED: NS 1,000 ML IV ONE ×2 (22:05)
[2023-01-15] MEDS ORDERED: GLUCOSE 4GM CHEW TABLET PO PRN (23:45)
[2023-01-15] MEDS ORDERED: ONDANSETRON 4MG 2ML VIAL IV PRN (23:45)
[2023-01-15] MEDS ORDERED: DEXTROSE 50% 50ML SYRINGE IV PRN (23:45)
[2023-01-15] MEDS ORDERED: GLUCAGON INJ 1MG VIAL SC PRN (23:45)
[2023-01-15] MEDS ORDERED: MED REC IN PROGRESS XX SCH (23:55)
[2023-01-16] VITALS (11 sets, daily range): BP systolic 108–164; BP diastolic 55–70; TEMP 97.1–97.9; O2SAT 96–100
[2023-01-16] MEDS: LR 1,000 ML IV SCH ×2 (00:25→14:32)
[2023-01-16] MEDS: ACETAMINOPHEN 500 MG TAB PO PRN (02:11)
[2023-01-16] MEDS: LEVOTHYROXINE 100MCG TABLET (0.1MG) PO SCH (06:00)
[2023-01-16] MEDS: LEVOTHYROXINE 12.5MCG PER 1/2 TAB (0.0125MG) PO SCH ×2 (06:00→09:00)
[2023-01-16 07:06] LABS: BLOOD UREA NITROGEN 20 MG/DL (9-23); CARBON DIOXIDE LEVEL 24 MMOL/L (20-31); CHLORIDE LEVEL 108 MMOL/L (98-107); CREATININE FOR GFR 0.95 MG/DL (0.70-1.30); GLOMERULAR FILTRATION RATE > 60.0 (>49); GLUCOSE, FASTING 98 MG/DL (74-106); MAGNESIUM LEVEL 1.5 MG/DL (1.8-2.4); SODIUM LEVEL 140 MMOL/L (136-145)
[2023-01-16 07:12] LABS: PROCALCITONIN 0.05 ng/ml
[2023-01-16] MEDS: INSULIN LISPRO (NovoLOG) PER UNIT SC SCH ×4 (07:30→19:35)
[2023-01-16] MEDS ORDERED: FERR325T3 PO (08:20)
[2023-01-16] MEDS ORDERED: HOME MED LIST COMPLETE! XX SCH (08:25)
[2023-01-16] MEDS ORDERED: PANTOPRAZOLE 40MG VIAL IV SCH (09:00)
[2023-01-16] MEDS: MICONAZOLE 2 % POWDER (DESENEX) TOP SCH ×2 (09:00→20:12)
[2023-01-16] MEDS: ASCORBIC ACID 250 MG TAB PO SCH (09:00)
[2023-01-16] MEDS: MAG SULF 1GM/100ML (MAG RUN) 1 GM in IV 1 EA IV SCH ×2 (09:12→10:12)
[2023-01-16] MEDS: MUPIROCIN 2% OINT 22 GM TUBE TOP SCH (09:14)
[2023-01-16 10:01] LABS: BASO % 0.5 % (0.0-1.0); EOS # 0.6 10^3/uL (0.0-0.5); HEMATOCRIT 30.4 % (42.0-52.0); HEMOGLOBIN 9.5 g/dl (13.5-17.5); LYMPH # 0.9 10^3/uL (1.5-5.0); LYMPH % 11.7 % (24.0-44.0); MEAN CORPUSCULAR HEMOGLOBIN 26.5 pg (27.0-33.0); MEAN CORPUSCULAR HGB CONC 31.3 g/dl (32.0-36.5); MEAN CORPUSCULAR VOLUME 84.7 fl (80.0-96.0); MONO # 0.5 10^3/uL (0.0-0.8); NEUTROPHILS # 5.5 10^3/uL (1.5-8.5); NEUTROPHILS % 72.7 % (36.0-66.0); PLATELET COUNT, AUTOMATED 384 10^3/uL (150-450); RED BLOOD COUNT 3.59 10^6/uL (4.30-6.10); WHITE BLOOD COUNT 7.6 10^3/uL (4.0-10.0)
[2023-01-16 12:17] LABS: FREE T4 0.91 NG/DL (0.89-1.76)
[2023-01-16 12:18] LABS: THYROID STIMULATING HORMONE 0.199 uIU/ML (0.55-4.78)
[2023-01-16] MEDS: VITAMIN D 1,000 INTERNATIONAL UNITS TABLET PO SCH (13:19)
[2023-01-16] MEDS: METOPROLOL SUCC (TopROL XL) 50MG **XL** TAB PO SCH (13:20)
[2023-01-16] MEDS: FERROUS SULFATE 325MG TAB PO SCH (13:21)
[2023-01-16] MEDS: DULoxetine 30MG CAPSULE (CYMBALTA) PO SCH (13:21)
[2023-01-16] MEDS: CEPHALEXIN 500 MG CAP PO SCH ×3 (13:21→20:09)
[2023-01-16] MEDS: CLOPIDOGREL 75 MG TAB PO SCH (13:21)
[2023-01-16] MEDS: MULTIVITAMINS/MINERALS THERAP 1 TAB PO SCH (13:21)
[2023-01-16] MEDS: traMADol 50 MG TAB PO PRN ×2 (13:26→20:11)
[2023-01-16] MEDS: PREGABALIN 25 MG CAP (LYRICA) PO SCH ×2 (13:26→20:09)
[2023-01-16] MEDS: BENZTROPINE 1 MG TAB PO SCH ×2 (17:29→20:11)
[2023-01-16] MEDS: RIVAROXABAN 20MG TAB (XARELTO) PO SCH (17:30)
[2023-01-16] MEDS: QUEtiapine FUMARATE 25 MG TAB PO SCH (20:10)
[2023-01-16] MEDS: ATORVASTATIN 20 MG TAB PO SCH (20:10)
[2023-01-16] MEDS: FINASTERIDE 5MG TAB PO SCH (20:11)
[2023-01-16] MEDS: EZETIMIBE 10MG TABLET (ZETIA) PO SCH (20:11)
[2023-01-16] MEDS: LURASIDONE HCL 40MG TAB (LATUDA) PO SCH (20:11)
[2023-01-17] VITALS (8 sets, daily range): BP systolic 120–160; BP diastolic 50–71; TEMP 97.4–98.1; O2SAT 95–98
[2023-01-17] MEDS: LR 1,000 ML IV SCH (00:48)
[2023-01-17] MEDS: LEVOTHYROXINE 100MCG TABLET (0.1MG) PO SCH (05:34)
[2023-01-17 05:49] LABS: BASO % 0.5 % (0.0-1.0); EOS # 0.5 10^3/uL (0.0-0.5); EOS % 7.9 % (0.0-3.0); HEMATOCRIT 28.7 % (42.0-52.0); HEMOGLOBIN 9.1 g/dl (13.5-17.5); LYMPH % 16.3 % (24.0-44.0); MEAN CORPUSCULAR HEMOGLOBIN 26.4 pg (27.0-33.0); MEAN CORPUSCULAR HGB CONC 31.7 g/dl (32.0-36.5); MEAN CORPUSCULAR VOLUME 83.2 fl (80.0-96.0); MONO # 0.4 10^3/uL (0.0-0.8); MONO % 6.1 % (2.0-8.0); NEUTROPHILS # 4.3 10^3/uL (1.5-8.5); NEUTROPHILS % 68.9 % (36.0-66.0); PLATELET COUNT, AUTOMATED 350 10^3/uL (150-450); RED BLOOD COUNT 3.45 10^6/uL (4.30-6.10); WHITE BLOOD COUNT 6.2 10^3/uL (4.0-10.0)
[2023-01-17 06:23] LABS: BLOOD UREA NITROGEN 16 MG/DL (9-23); CALCIUM LEVEL 8.3 MG/DL (8.3-10.6); CARBON DIOXIDE LEVEL 25 MMOL/L (20-31); CHLORIDE LEVEL 109 MMOL/L (98-107); CREATININE FOR GFR 0.88 MG/DL (0.70-1.30); GLOMERULAR FILTRATION RATE > 60.0 (>49); GLUCOSE, FASTING 118 MG/DL (74-106); MAGNESIUM LEVEL 1.8 MG/DL (1.8-2.4); POTASSIUM SERUM 4.1 MMOL/L (3.5-5.1); SODIUM LEVEL 142 MMOL/L (136-145)
[2023-01-17 06:24] LABS: IRON (FE) 21 UG/DL (65-175); PERCENT SATURATION 9.9 % (19.7-50.0); TOTAL IRON BINDING CAPACITY 213 UG/DL (250-425)
[2023-01-17 06:25] LABS: VITAMIN B12 LEVEL 328 PG/ML (211-911)
[2023-01-17 06:26] LABS: FERRITIN 124.5 NG/ML (10.5-307.3); FOLATE 22.58 NG/ML (>5.4)
[2023-01-17] MEDS: INSULIN LISPRO (NovoLOG) PER UNIT SC SCH ×4 (08:34→20:29)
[2023-01-17] MEDS: LEVOTHYROXINE 12.5MCG PER 1/2 TAB (0.0125MG) PO SCH (08:35)
[2023-01-17] MEDS: BENZTROPINE 1 MG TAB PO SCH ×3 (08:35→20:30)
[2023-01-17] MEDS: VITAMIN D 1,000 INTERNATIONAL UNITS TABLET PO SCH (08:36)
[2023-01-17] MEDS: PREGABALIN 25 MG CAP (LYRICA) PO SCH (08:37)
[2023-01-17] MEDS: ASCORBIC ACID 250 MG TAB PO SCH (08:37)
[2023-01-17] MEDS: DULoxetine 30MG CAPSULE (CYMBALTA) PO SCH (08:37)
[2023-01-17] MEDS: METOPROLOL SUCC (TopROL XL) 50MG **XL** TAB PO SCH (08:37)
[2023-01-17] MEDS: CEPHALEXIN 500 MG CAP PO SCH ×4 (08:37→20:30)
[2023-01-17] MEDS: PANTOPRAZOLE 40MG TAB (PROTONIX) PO SCH (08:37)
[2023-01-17] MEDS: FERROUS SULFATE 325MG TAB PO SCH (08:37)
[2023-01-17] MEDS: MULTIVITAMINS/MINERALS THERAP 1 TAB PO SCH (08:37)
[2023-01-17] MEDS: MUPIROCIN 2% OINT 22 GM TUBE TOP SCH (08:38)
[2023-01-17] MEDS: CLOPIDOGREL 75 MG TAB PO SCH (08:38)
[2023-01-17] MEDS: MICONAZOLE 2 % POWDER (DESENEX) TOP SCH ×2 (08:39→20:30)
[2023-01-17] MEDS: RIVAROXABAN 20MG TAB (XARELTO) PO SCH (17:21)
[2023-01-17] MEDS: traMADol 50 MG TAB PO PRN (17:23)
[2023-01-17] MEDS: PREGABALIN 50 MG CAP (LYRICA) PO SCH (20:30)
[2023-01-17] MEDS: LURASIDONE HCL 40MG TAB (LATUDA) PO SCH (20:30)
[2023-01-17] MEDS: EZETIMIBE 10MG TABLET (ZETIA) PO SCH (20:30)
[2023-01-17] MEDS: FINASTERIDE 5MG TAB PO SCH (20:30)
[2023-01-17] MEDS: QUEtiapine FUMARATE 25 MG TAB PO SCH (20:30)
[2023-01-17] MEDS: ATORVASTATIN 20 MG TAB PO SCH (20:30)
[2023-01-18] VITALS (8 sets, daily range): BP systolic 134–169; BP diastolic 59–76; TEMP 97.8–98.1; O2SAT 96–97
[2023-01-18] MEDS: LEVOTHYROXINE 75MCG TABLET (0.075MG) PO SCH (06:03)
[2023-01-18] MEDS: LEVOTHYROXINE 100MCG TABLET (0.1MG) PO SCH (06:03)
[2023-01-18 06:17] LABS: BASO # 0.1 10^3/uL (0.0-0.2); BASO % 0.8 % (0.0-1.0); EOS # 0.6 10^3/uL (0.0-0.5); HEMATOCRIT 30.3 % (42.0-52.0); HEMOGLOBIN 9.5 g/dl (13.5-17.5); LYMPH % 16.5 % (24.0-44.0); MEAN CORPUSCULAR HEMOGLOBIN 26.2 pg (27.0-33.0); MEAN CORPUSCULAR HGB CONC 31.4 g/dl (32.0-36.5); MEAN CORPUSCULAR VOLUME 83.5 fl (80.0-96.0); MONO # 0.4 10^3/uL (0.0-0.8); MONO % 7.1 % (2.0-8.0); NEUTROPHILS # 4.1 10^3/uL (1.5-8.5); NEUTROPHILS % 66.1 % (36.0-66.0); PLATELET COUNT, AUTOMATED 366 10^3/uL (150-450); RED BLOOD COUNT 3.63 10^6/uL (4.30-6.10); WHITE BLOOD COUNT 6.2 10^3/uL (4.0-10.0)
[2023-01-18 06:41] LABS: BLOOD UREA NITROGEN 13 MG/DL (9-23); CALCIUM LEVEL 8.5 MG/DL (8.3-10.6); CARBON DIOXIDE LEVEL 27 MMOL/L (20-31); CHLORIDE LEVEL 107 MMOL/L (98-107); CREATININE FOR GFR 0.85 MG/DL (0.70-1.30); GLOMERULAR FILTRATION RATE > 60.0 (>49); GLUCOSE, FASTING 114 MG/DL (74-106); POTASSIUM SERUM 3.9 MMOL/L (3.5-5.1); SODIUM LEVEL 142 MMOL/L (136-145)
[2023-01-18] MEDS: INSULIN LISPRO (NovoLOG) PER UNIT SC SCH ×4 (07:12→20:02)
[2023-01-18 07:40] LABS: MAGNESIUM LEVEL 1.7 MG/DL (1.8-2.4)
[2023-01-18] MEDS: PANTOPRAZOLE 40MG TAB (PROTONIX) PO SCH (08:13)
[2023-01-18] MEDS: CEPHALEXIN 500 MG CAP PO SCH ×4 (08:13→19:57)
[2023-01-18] MEDS: BENZTROPINE 1 MG TAB PO SCH ×3 (08:13→19:57)
[2023-01-18] MEDS: PREGABALIN 50 MG CAP (LYRICA) PO SCH ×2 (08:13→20:00)
[2023-01-18] MEDS: CLOPIDOGREL 75 MG TAB PO SCH (08:13)
[2023-01-18] MEDS: FERROUS SULFATE 325MG TAB PO SCH (08:13)
[2023-01-18] MEDS: VITAMIN D 1,000 INTERNATIONAL UNITS TABLET PO SCH (08:13)
[2023-01-18] MEDS: MULTIVITAMINS/MINERALS THERAP 1 TAB PO SCH (08:13)
[2023-01-18] MEDS: ASCORBIC ACID 250 MG TAB PO SCH (08:13)
[2023-01-18] MEDS: DULoxetine 30MG CAPSULE (CYMBALTA) PO SCH (08:13)
[2023-01-18] MEDS: MUPIROCIN 2% OINT 22 GM TUBE TOP SCH (08:14)
[2023-01-18] MEDS: METOPROLOL SUCC (TopROL XL) 50MG **XL** TAB PO SCH (08:14)
[2023-01-18] MEDS: MICONAZOLE 2 % POWDER (DESENEX) TOP SCH ×2 (08:14→20:02)
[2023-01-18] MEDS: MIRALAX *UNIT DOSE* 17GM PACKET PO SCH (09:00)
[2023-01-18] MEDS: MAGNESIUM OXIDE 400MG TAB (MAG-OX) PO SCH ×2 (10:26→20:00)
[2023-01-18] MEDS ORDERED: MIRALAX *UNIT DOSE* 17GM PACKET PO ONE (11:30)
[2023-01-18] MEDS: traMADol 50 MG TAB PO PRN ×2 (12:06→17:07)
[2023-01-18] MEDS ORDERED: **hydrALAZINE HCL** 25 MG TAB PO PRN (14:25)
[2023-01-18] MEDS: ACETAMINOPHEN 500 MG TAB PO PRN (15:30)
[2023-01-18] MEDS: RIVAROXABAN 20MG TAB (XARELTO) PO SCH (17:07)
[2023-01-18] MEDS: EZETIMIBE 10MG TABLET (ZETIA) PO SCH (19:57)
[2023-01-18] MEDS: FINASTERIDE 5MG TAB PO SCH (19:57)
[2023-01-18] MEDS: ATORVASTATIN 20 MG TAB PO SCH (19:57)
[2023-01-18] MEDS: QUEtiapine FUMARATE 25 MG TAB PO SCH (19:57)
[2023-01-18] MEDS: LURASIDONE HCL 40MG TAB (LATUDA) PO SCH (20:00)
[2023-01-19 06:00] VITALS: BP 167/72; TEMP 97; O2SAT 95
[2023-01-19] MEDS: LEVOTHYROXINE 100MCG TABLET (0.1MG) PO SCH (06:15)
[2023-01-19] MEDS: LEVOTHYROXINE 75MCG TABLET (0.075MG) PO SCH (06:15)
[2023-01-19 06:47] LABS: BASO % 0.5 % (0.0-1.0); EOS # 0.6 10^3/uL (0.0-0.5); EOS % 8.4 % (0.0-3.0); HEMATOCRIT 31.9 % (42.0-52.0); LYMPH # 1.1 10^3/uL (1.5-5.0); LYMPH % 14.4 % (24.0-44.0); MEAN CORPUSCULAR HEMOGLOBIN 25.9 pg (27.0-33.0); MEAN CORPUSCULAR HGB CONC 31.3 g/dl (32.0-36.5); MEAN CORPUSCULAR VOLUME 82.6 fl (80.0-96.0); MONO # 0.5 10^3/uL (0.0-0.8); MONO % 6.8 % (2.0-8.0); NEUTROPHILS # 5.1 10^3/uL (1.5-8.5); NEUTROPHILS % 69.5 % (36.0-66.0); PLATELET COUNT, AUTOMATED 384 10^3/uL (150-450); RED BLOOD COUNT 3.86 10^6/uL (4.30-6.10); WHITE BLOOD COUNT 7.4 10^3/uL (4.0-10.0)
[2023-01-19 07:18] LABS: BLOOD UREA NITROGEN 15 MG/DL (9-23); CARBON DIOXIDE LEVEL 30 MMOL/L (20-31); CHLORIDE LEVEL 104 MMOL/L (98-107); CREATININE FOR GFR 0.93 MG/DL (0.70-1.30); GLOMERULAR FILTRATION RATE > 60.0 (>49); GLUCOSE, FASTING 124 MG/DL (74-106); POTASSIUM SERUM 4.2 MMOL/L (3.5-5.1); SODIUM LEVEL 140 MMOL/L (136-145)
[2023-01-19] MEDS: INSULIN LISPRO (NovoLOG) PER UNIT SC SCH ×2 (07:30→13:27)
[2023-01-19 07:58] LABS: MAGNESIUM LEVEL 1.7 MG/DL (1.8-2.4)
[2023-01-19] MEDS ORDERED: amLODIPine 5 MG TAB PO SCH (09:00)
[2023-01-19] MEDS ORDERED: SENOKOT S TAB PO SCH (09:00)
[2023-01-19] MEDS: MUPIROCIN 2% OINT 22 GM TUBE TOP SCH (09:00)
[2023-01-19] MEDS ORDERED: MIRALAX *UNIT DOSE* 17GM PACKET PO PRN (09:00)
[2023-01-19] MEDS: METOPROLOL SUCC (TopROL XL) 50MG **XL** TAB PO SCH (09:00)
[2023-01-19] MEDS: MIRALAX *UNIT DOSE* 17GM PACKET PO SCH (09:36)
[2023-01-19] MEDS: PREGABALIN 50 MG CAP (LYRICA) PO SCH (09:36)
[2023-01-19] MEDS: ASCORBIC ACID 250 MG TAB PO SCH (09:36)
[2023-01-19] MEDS: BENZTROPINE 1 MG TAB PO SCH ×2 (09:36→16:05)
[2023-01-19] MEDS: DULoxetine 30MG CAPSULE (CYMBALTA) PO SCH (09:36)
[2023-01-19] MEDS: MAGNESIUM OXIDE 400MG TAB (MAG-OX) PO SCH (09:37)
[2023-01-19] MEDS: VITAMIN D 1,000 INTERNATIONAL UNITS TABLET PO SCH (09:37)
[2023-01-19] MEDS: CEPHALEXIN 500 MG CAP PO SCH ×3 (09:37→16:05)
[2023-01-19] MEDS: MULTIVITAMINS/MINERALS THERAP 1 TAB PO SCH (09:37)
[2023-01-19] MEDS: CLOPIDOGREL 75 MG TAB PO SCH (09:37)
[2023-01-19] MEDS: traMADol 50 MG TAB PO PRN (09:37)
[2023-01-19] MEDS: FERROUS SULFATE 325MG TAB PO SCH (09:38)
[2023-01-19] MEDS: PANTOPRAZOLE 40MG TAB (PROTONIX) PO SCH (09:38)
[2023-01-19 09:46] VITALS: BP 175/74
[2023-01-19] MEDS: MICONAZOLE 2 % POWDER (DESENEX) TOP SCH (09:48)
[2023-01-19] MEDS ORDERED: MAG SULF 1GM/100ML (MAG RUN) 1 GM in IV 1 EA IV ONE (11:00)
[2023-01-19 13:58] VITALS: BP 137/58; TEMP 97.1; O2SAT 99
[2023-01-19] MEDS ORDERED: CEPH500C PO (14:50)
[2023-01-19] MEDS ORDERED: NYST1POW9 TOP (14:50)
[2023-01-19] MEDS ORDERED: LISI20TA33 PO (14:50)
[2023-01-19] MEDS ORDERED: MUPI30CR TOP (14:50)
[2023-01-19] MEDS ORDERED: LEVO175T2 PO (14:50)
[2023-01-19] MEDS ORDERED: MIRA1POW3 PO (14:50)
[2023-01-19] MEDS ORDERED: MAGN400T2 PO (14:50)
[2023-01-19] MEDS ORDERED: PREG50CA3 PO (14:50)
[2023-01-19] MEDS ORDERED: INSULANT SC (14:50)
== END 2023-01-19 17:34 | disposition home health service (06) | DRG 312 ==
LOC: M ED 17:46 → M ED INP 23:39 → M MS4PR 01-16 01:30
PROVIDERS: ADMIT Internal Medicine; ATTEND Internal Medicine
DX: I95.1 Orthostatic hypotension (principal); R19.7 Diarrhea, unspecified; E83.42 Hypomagnesemia; Z79.4 Long term (current) use of insulin; E11.51 Type 2 diabetes mellitus with diabetic peripheral angiopathy without gangrene; I10 Essential (primary) hypertension; I25.10 Atherosclerotic heart disease of native coronary artery without angina pectoris; Z95.2 Presence of prosthetic heart valve; L30.4 Erythema intertrigo; D50.9 Iron deficiency anemia, unspecified; M54.50 Low back pain, unspecified; N40.0 Benign prostatic hyperplasia without lower urinary tract symptoms; K21.9 Gastro-esophageal reflux disease without esophagitis; E55.9 Vitamin D deficiency, unspecified; Z88.0 Allergy status to penicillin; Z88.2 Allergy status to sulfonamides; Z88.6 Allergy status to analgesic agent; Z88.8 Allergy status to other drugs, medicaments and biological substances; Z79.899 Other long term (current) drug therapy; Z86.718 Personal history of other venous thrombosis and embolism; E03.9 Hypothyroidism, unspecified; I87.8 Other specified disorders of veins

== ENCOUNTER → 2023-01-28 | Outpatient (CLI) | payer MEDICARE, OTHER ==
[~2023-01-28] MED LIST changes: +CEPH500C PO; +FERR325T3 PO; +MAGN400T2 PO; +MUPI30CR TOP; +NYST1POW9 TOP; +PREG50CA3 PO
== END ==
LOC: M RAD 10:33
PROVIDERS: ATTEND Surgery
DX: L97.822 Non-pressure chronic ulcer of other part of left lower leg with fat layer exposed (principal); R68.89 Other general symptoms and signs

== ENCOUNTER 2023-03-12 11:11 | Emergency (ER) | payer OTHER, MEDICARE ==
[~2023-03-12] VITALS: Ht 170.2 cm; Wt 109.1 kg
[2023-03-12 11:27] VITALS: TEMP 97.9
[2023-03-12 12:09] LABS: VENOUS BASE EXCESS -0.2 (-2.0-2.0); VENOUS HCO3 25.8 MMOL/L (23.0-27.0); VENOUS O2 SATURATION 68.8 % (60.0-80.0); VENOUS PARTIAL PRESSURE CO2 48.3 mmHg (38.0-50.0); VENOUS PARTIAL PRESSURE O2 38.2 mmHg (30.0-50.0); VENOUS PH 7.346 UNITS (7.330-7.430); VENOUS STANDARD HCO3 23.8 MMOL/L; VENOUS TOTAL CO2 27.3 MMOL/L (24.0-28.0)
[2023-03-12 12:16] LABS: BASO % 0.6 % (0.0-1.0); EOS # 0.4 10^3/uL (0.0-0.5); EOS % 5.7 % (0.0-3.0); HEMATOCRIT 30.9 % (42.0-52.0); HEMOGLOBIN 10.1 g/dl (13.5-17.5); LYMPH # 1.1 10^3/uL (1.5-5.0); LYMPH % 16.7 % (24.0-44.0); MEAN CORPUSCULAR HEMOGLOBIN 27.9 pg (27.0-33.0); MEAN CORPUSCULAR HGB CONC 32.7 g/dl (32.0-36.5); MEAN CORPUSCULAR VOLUME 85.4 fl (80.0-96.0); MONO # 0.4 10^3/uL (0.0-0.8); MONO % 5.7 % (2.0-8.0); NEUTROPHILS # 4.5 10^3/uL (1.5-8.5); PLATELET COUNT, AUTOMATED 306 10^3/uL (150-450); RED BLOOD COUNT 3.62 10^6/uL (4.30-6.10); WHITE BLOOD COUNT 6.3 10^3/uL (4.0-10.0)
[2023-03-12 12:34] LABS: INR 1.22
[2023-03-12 12:36] LABS: PARTIAL THROMBOPLASTIN TIME 34.6 SECONDS (24.8-34.2)
[2023-03-12 12:44] LABS: CK-MB VALUE MASS 1.2 NG/ML (<3.6)
[2023-03-12 12:45] LABS: CPK CREATINE PHOSPHOKINASE 65 U/L (46-171); MB/CK RELATIVE INDEX 1.84 (< OR =4)
[2023-03-12 12:46] LABS: ALKALINE PHOSPHATASE 101 U/L (46-116); ALT/SGPT 17 U/L (7.0-40); AST/SGOT 15 U/L (<34); BILIRUBIN,DIRECT 0.2 MG/DL (<0.4); BILIRUBIN,TOTAL 0.4 MG/DL (0.3-1.2); BLOOD UREA NITROGEN 25 MG/DL (9-23); CALCIUM LEVEL 8.9 MG/DL (8.3-10.6); CARBON DIOXIDE LEVEL 27 MMOL/L (20-31); CHLORIDE LEVEL 105 MMOL/L (98-107); GLOMERULAR FILTRATION RATE > 60.0 (>49); GLUCOSE, FASTING 97 MG/DL (74-106); POTASSIUM SERUM 3.9 MMOL/L (3.5-5.1); SODIUM LEVEL 140 MMOL/L (136-145); TOTAL PROTEIN 6.4 G/DL (5.7-8.2)
[2023-03-12 12:48] LABS: THYROID STIMULATING HORMONE 0.757 uIU/ML (0.55-4.78)
[2023-03-12 12:52] LABS: PROCALCITONIN <0.04 ng/ml
[2023-03-12] MEDS ORDERED: NS 1,000 ML IV ONE (13:00)
[2023-03-12 14:37] LABS: CK-MB VALUE MASS 1.2 NG/ML (<3.6); MB/CK RELATIVE INDEX 2.14 (< OR =4)
[2023-03-12 18:36] VITALS: O2SAT 98
[2023-03-12 18:46] VITALS: BP 101/56
[2023-03-12 18:58] VITALS: O2SAT 92
== END 2023-03-12 19:05 | disposition home or self-care (01) ==
LOC: M ED 11:11 → EDBD 11:11 → M ED 19:05
DX: R42 Dizziness and giddiness (principal); I25.2 Old myocardial infarction; E11.9 Type 2 diabetes mellitus without complications; E78.5 Hyperlipidemia, unspecified; I95.1 Orthostatic hypotension; T88.7XXA Unspecified adverse effect of drug or medicament, initial encounter; N18.4 Chronic kidney disease, stage 4 (severe); F25.9 Schizoaffective disorder, unspecified; Z86.79 Personal history of other diseases of the circulatory system; Z87.891 Personal history of nicotine dependence; Z88.0 Allergy status to penicillin; Z88.2 Allergy status to sulfonamides; Z88.8 Allergy status to other drugs, medicaments and biological substances; Z91.013 Allergy to seafood; Z79.02 Long term (current) use of antithrombotics/antiplatelets; Z79.811 Long term (current) use of aromatase inhibitors; Z79.810 Long term (current) use of selective estrogen receptor modulators (SERMs); Z79.899 Other long term (current) drug therapy

== ENCOUNTER → 2024-03-01 | Outpatient (CLI) | payer MEDICARE, OTHER ==
[~2024-03-01] MED LIST changes: +ISOVUE-370 76% 100ML VIAL As Ordered ONE; -MIRA1POW3 PO; +MIRA33506 PO; +VITA250T27 PO; -VITA250T4 PO
== END ==
LOC: M RAD 07:51
PROVIDERS: ATTEND Nurse Practitioner Family
DX: I71.40 Abdominal aortic aneurysm, without rupture, unspecified (principal); Z95.828 Presence of other vascular implants and grafts
CPT/HCPCS: 74178; Q9967

== ENCOUNTER → 2025-03-20 | Outpatient (CLI) | payer OTHER ==
[~2025-03-20] MED LIST changes: -EZET10TA21 PO; +EZET10TA57 PO; -FLOM0.4C39 PO; -GEOD40CA13 PO; -ISOVUE-370 76% 100ML VIAL As Ordered ONE; +MORP-137 PO; -MSIR30TA PO; +NYST1POW3 TOP; -NYST1POW9 TOP; -PREG50CA PO; +PREG50CA87 PO; +TAMS-18 PO; +ZIPR40CA27 PO
== END ==
LOC: M RAD 14:57
PROVIDERS: ATTEND Nurse Practitioner Family
DX: I72.3 Aneurysm of iliac artery (principal); R91.8 Other nonspecific abnormal finding of lung field; I25.10 Atherosclerotic heart disease of native coronary artery without angina pectoris; N26.1 Atrophy of kidney (terminal); K57.90 Diverticulosis of intestine, part unspecified, without perforation or abscess without bleeding; K42.9 Umbilical hernia without obstruction or gangrene; K40.20 Bilateral inguinal hernia, without obstruction or gangrene, not specified as recurrent; I70.0 Atherosclerosis of aorta; Z95.828 Presence of other vascular implants and grafts; R93.49 Abnormal radiologic findings on diagnostic imaging of other urinary organs